=== PATIENT | female | born 1940 | race Caucasian/White ===

== ENCOUNTER → 2016-06-18 | Outpatient (CLI) | payer OTHER, BC ==
[~2016-06-18] MED LIST: BSP15 PO; ERGO500037 PO; HYDR25CA PO; LISI-461 PO; MEMA1CAP7 PO; PARO1TAB29 PO; RISP0.258 PO; SOTA120T PO; SRQ25 PO
[2016-06-18 12:14] LABS: HEMATOCRIT 36.8 % (37-47); MEAN CELL VOLUME 88.2 fL (80-100); MEAN CORPUSCULAR HGB CONC 32.9 g/dl (32-36); MEAN PLATELET VOLUME 10.8 fL (7.4-10.4); PLATELET COUNT 176 K/uL (130-400); RED BLOOD COUNT 4.17 M/uL (4.2-5.4); WHITE BLOOD COUNT 6.19 K/uL (4.8-10.8)
[2016-06-18 12:45] LABS: BLOOD UREA NITROGEN 17 mg/dl (7-18); BUN/CREATININE RATIO 21.8 (10-20); CALCIUM 8.6 mg/dl (8.5-10.1); CARBON DIOXIDE 27 mmol/L (21-32); CHLORIDE 106 mmol/L (98-107); CREATININE 0.76 mg/dl (0.60-1.20); GLUCOSE 82 mg/dl (70-99); POTASSIUM 4.1 mmol/L (3.5-5.1); SODIUM 141 mmol/L (136-145)
== END | disposition home or self-care (01) ==
LOC: C.LABWYN 12:28
PROVIDERS: ATTEND Internal Medicine
DX: I48.91 Unspecified atrial fibrillation (principal); I10 Essential (primary) hypertension

== ENCOUNTER → 2017-05-06 | Outpatient (CLI) | payer OTHER, BC ==
[2017-05-06 14:19] LABS: BLOOD UREA NITROGEN 23 mg/dl (7-18); CREATININE 0.89 mg/dl (0.60-1.20)
== END | disposition home or self-care (01) ==
LOC: C.LABWYN 10:45
PROVIDERS: ATTEND Physician Assistant
DX: H90.42 Sensorineural hearing loss, unilateral, left ear, with unrestricted hearing on the contralateral side (principal)

== ENCOUNTER → 2017-05-09 | Outpatient (CLI) | payer OTHER, BC ==
[~2017-05-09] MED LIST changes: +GADAVIST IV PRN
--- NOTE | 2017-05-09 15:56 | DIAGNOSTIC IMAGING REPORT ---
BRAIN COMBO FOR IAC CLINICAL HISTORY: Left greater than right asymmetric sensorineural hearing loss. COMPARISON STUDY: Head CT May 27, 2015. TECHNIQUE: Utilizing a 1.5 Angie magnet and dedicated coil, multiplanar, multiecho imaging of the brain was performed pre and postcontrast administration with thin cut imaging through the internal auditory canals. Injection of 8.5 cc of Gadavist IV was uneventful. FINDINGS: There are no foci of restricted diffusion. No acute intracranial hemorrhage, midline shift or mass effect is present. There is moderate atrophy. This accounts for mild ventricular dilatation. The basilar cisterns are patent. There are no extra-axial collections. No intracranial mass or pathologic enhancement is identified with specific attention to the internal auditory canals. There is no mastoid effusion. No cerebellopontine angle mass is present. Pontine T2 hyperintensity suggest small vessel disease. Additional white matter T2 hyperintense foci reflect moderate small vessel disease. Calvarial signal is maintained. There are postoperative findings within the sinuses including bilateral medial antrostomies and partial ethmoidectomies. There is near complete opacification of the right sphenoid sinus as well as the right frontal and right ethmoid sinuses. There is moderate mucosal thickening of the bilateral maxillary sinuses. Mild progression is noted since exam of May 27, 2015. IMPRESSION: 1. No acute intracranial findings. 2. No abnormalities within the internal auditory canals. 3. Moderate atrophy and moderate small vessel disease. 4. Extensive sinus mucosal thickening/opacification, as described above. Mild progression since exam of May 27, 2015. The appearance favors chronic sinusitis. Electronically signed by: Reece Millan M.D. 05/09/2017 3:54 PM Dictated Date/Time: 05/09/2017 3:29 PM
== END | disposition home or self-care (01) ==
LOC: C.MRI 14:02
PROVIDERS: ATTEND Physician Assistant
DX: H90.42 Sensorineural hearing loss, unilateral, left ear, with unrestricted hearing on the contralateral side (principal); G31.9 Degenerative disease of nervous system, unspecified; J34.89 Other specified disorders of nose and nasal sinuses

== ENCOUNTER → 2017-07-28 | Outpatient (CLI) | payer OTHER, BC ==
[~2017-07-28] MED LIST changes: -GADAVIST IV PRN
== END | disposition home or self-care (01) ==
LOC: C.LABSPEC 10:54
PROVIDERS: ATTEND Nurse Practitioner Adult Health
DX: R35.0 Frequency of micturition (principal)

== ENCOUNTER → 2017-08-05 | Outpatient (CLI) | payer OTHER, BC ==
--- NOTE | 2017-08-06 13:59 | CODING QUERY NO DIAGNOSIS ---
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 Please assist us with providing a diagnosis/symptom for the test(s) below: A diagnosis/symptom was not documented on your Order. A valid diagnosis/symptom is required to bill all insurances. Please remember that we are unable to code a diagnosis of rule out, probable, possible, questionable, or suspected. Tests that require a diagnosis: DOS: 08/05/17 * UA CATH DIAGNOSIS: * URINE CULTURE CATH DIAGNOSIS: Provider Signature: Date: Thank you Malu Piña Health Information Management Once completed, please kindly fax back to [phone] For questions please call [phone]
== END | disposition home or self-care (01) ==
LOC: C.LABWYN 12:31
PROVIDERS: ATTEND Internal Medicine
DX: N39.0 Urinary tract infection, site not specified (principal)

== ENCOUNTER 2018-12-29 08:57 | Inpatient (IN) ==
[2018-12-29] MEDS ORDERED: SOTALOL HCL 80 MG TAB PO ONE (09:21)
[2018-12-29] MEDS ORDERED: ALBUT/IPRATROP 3MG/0.5MG NEB 3 ML VIAL NEB STA (09:21)
[2018-12-29 09:29] LABS: Basophils # (auto) 0.01 K/uL (0-0.2); Basophils % (auto) 0.1 %; Hematocrit (blood only) 42.6 % (37-47); Hemoglobin 14.3 g/dL (12.0-16.0); Immature Granulocytes # (auto) 0.06 K/uL (0.00-0.02); Immature Granulocytes % (auto) 0.4 %; Lymphocytes # (auto) 1.45 K/uL (1.2-3.4); Lymphocytes % (auto) 8.8 %; Mean Corpuscular Hemoglobin 28.1 pg (25-34); Mean Corpuscular Hgb Conc 33.6 g/dL (32-36); Mean Corpuscular Volume 83.7 fL (80-100); Mean Platelet Volume 10.4 fL (7.4-10.4); Monocytes # (auto) 1.65 K/uL (0.11-0.59); Monocytes % (auto) 10.1 %; Neutrophils # (auto) 13.23 K/uL (1.4-6.5); Neutrophils % (auto) 80.6 %; Platelet Count 259 K/uL (130-400); RDW Coefficient of Variation 15.1 % (11.5-14.5); RDW Standard Deviation 46.2 fL (36.4-46.3); Red Blood Count 5.09 M/uL (4.2-5.4)
--- NOTE | 2018-12-29 09:33 | XRay Report ---
XR chest 1V portable CLINICAL HISTORY: Dyspnea COMPARISON STUDY: 12/27/2018 FINDINGS: Mild cardiomegaly. Mild prominence of pulmonary vasculature. Diaphragms are smooth. No foca l infiltrate. IMPRESSION: Early congestive heart failure The above report was generated using voice recognition software. It may contain grammatical, syntax or spelling errors. Electronically signed by: Karthik Gomez M.D. 12/29/2018 9:32 AM
[2018-12-29 09:42] LABS: Appearance Urine Clear (Clear); Bacteria Urine Automated Negative (Negative); Bilirubin Urine 1+ (Negative); Blood Urine 1+ (Negative); Color Urine Dark Yellow; Epithelial Cell Urine Auto 20-30 /lpf (0-5); Glucose Urine UA Negative (Negative); Ketones Urine 1+ (Negative); Leukocyte Esterase Urine Negative (Negative); Nitrite Urine Negative (Negative); Protein Urine 3+ (Negative); Specific Gravity Urine 1.028 (1.000-1.030); Urobilinogen Urine Negative (Negative); pH Urine 5.5 (4.5-7.5)
[2018-12-29 09:44] LABS: Ictotest Urine Positive (Negative)
--- NOTE | 2018-12-29 09:45 | Emergency Department Note ---
Entered by Marisol Caldwell acting as a scribe for Dima Jackson DO History of Present Illness General Chief complaint: Cardiac Assessment Time Seen by Provider: 12/29/18 09:14 Source: patient, family, EMS, RN notes reviewed and old records reviewed Mode of arrival: EMS Limitations: no limitations (The patient answers questions appropriately but has some degree of confusion according to her family members.) History of Present Illness Onset (ago): day(s) 3 Location: chest Pain Consistency: + other (worsening) Quality: + other (shortness of breath) Exacerbated By: + movement (exertion) Associated symptoms: + denies other symptoms (back pain, increased urinary frequency), + confusion (intermittent), + cough, + shortness of breath and + other (orthopnea, leg swelling); no chest pain, no headaches and no nausea/vomiting The patient is a 78-year-old female who presented to the emergency department for an evaluation of 3 days of shortness of breath. The patient was seen in our facility over the weekend twice but each time was sent home with a diagnosis of bronchitis. The patient continues to worsen. She has not been seen by her primary care physician. The family is very concerned because the patient co ntinues to worsen and they do not feel that her diagnosis of bronchitis is appropriate or accurate. There is significant concern about the patient's condition because she continues to worsen at her personal shelter. The patient answers questions slowly but appears to be oriented at this time. The patient states that she is been having difficulty breathing. She states difficulty breathing is worsened with any exertion. She has a nonproductive cough. Her cough sounds very "wet" according to her family members. According to the family members the resting oxygen saturation was 84% prior to arrival. The patient's symptoms are very significant and worsen with any exertion or movement. She does have some orthopnea. The family has noted some increased leg swelling. She denies having any chest pain or headache. She has had no nausea or vomiting. She denies having any back pain or decreased urination but continues to complain about feeling like she has to urinate but prior to my e valuation the patient had a Rahman catheter placed by nursing. She states her symptoms are very severe. Her family members are very concerned because she seems to be confused at times. She does not normally wear oxygen but it is requiring nasal cannula oxygen at this time and is maintaining an appropriate saturation with nasal cannula oxygen. The patient did not take her a.m. medications at this time. She was noted to have rapid atrial fibrillation by the prehospital personnel. Home Medications Home Medications Medication Instructions Recorded Confirmed Type buspirone 15 mg PO TID 01/18/18 12/29/18 History docusate sodium 100 mg PO BID 01/18/18 12/29/18 History donepezil 10 mg PO DAILY 01/18/18 12/29/18 History ergocalciferol (vitamin D2) 50,000 unit PO LEVY 01/18/18 12/29/18 History [Vitamin D2] hydroxyzine HCl 25 mg PO Q8 PRN 01/18/18 12/29/18 History lisinopril [Zestril] 10 mg PO QAM 01/18/18 12/29/18 History loratadine [Loradamed] 10 mg PO QAM 01/18/18 12/29/18 History lorazepam 0.5 mg PO TID 01/18/18 12/29/18 History naproxen sodium [Aleve] 220 mg PO Q12 PRN 01/18/18 12/29/18 History sotalol [Sorine] 120 mg PO BID 01/18/18 12/29/18 History venlafaxine [Effexor XR] 150 mg PO QAM 01/18/18 12/29/18 History memantine [Namenda XR] 28 mg PO QAM 07/24/18 12/29/18 History alum-mag hydroxide-simeth 30 ml PO Q6H PRN 12/26/18 12/29/18 History [Antacid-Simethicone] aspirin 81 mg PO DAILY 12/26/18 12/29/18 History dextromethorphan-guaifenesin 5 ml PO Q4H PRN 12/26/18 12/29/18 History [Tussin DM] lisinopril [Zestril] 2.5 mg PO DAILY 12/26/18 12/29/18 History mineral oil-hydrophil petrolat 1 applic TOPICAL TID PRN 12/26/18 12/29/18 History [Aquaphor] phenylephrine HCl [Sudafed PE] 10 mg PO Q4H PRN 12/26/18 12/29/18 History sennosides-docusate sodium [Senna 1 tab PO DAILY 12/26/18 12/29/18 History Plus] venlafaxine [Effexor XR] 75 mg PO QAM 12/26/18 12/29/18 History albuterol sulfate 1.25 mg INH Q6H PRN 3 Days #60 ml 12/27/18 12/29/18 Rx amoxicillin-pot clavulanate 1 tab PO BID 12/29/18 12/29/18 History [Augmentin] benzonatate 100 mg PO TID PRN 12/29/18 12/29/18 History Allergies Allergy/AdvReac Type Severity Reaction Status Date / Time Sulfa (Sulfonamide Allergy Mild "SULFA Verified 12/29/18 09:44 Antibiotics) DRUGS": UNKNOWN acetaminophen Allergy Unknown ? Verified 12/29/18 09:44 oxycodone Allergy Unknown ? 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 and A total of 10 systems reviewed and were otherwise negative Additional history was obtained from the patient's family members. Physical Exam Vital Signs Vital Signs - 24 hr 12/29/18 09:17 12/29/18 09:27 12/29/18 09:38 Temperature Source Oral Sepsis Recent Fever Within 48 Hours No Sepsis New/Unexplained Change in Mental Status Yes Sepsis Action Taken by Nursing No Action Required Pulse Rate 156 H Pulse Rate [Apical] 140 H Pulse Rate from SpO2 Sensor Respiratory Rate 32 H 20 Respiratory Effort / Characteristics Spontaneous Non-Labored Spontaneous Blood Pressure 229/186 H Blood Pressure [Right Arm] Blood Pressure Mean 200 Blood Pressure Mean [Right Arm] Blood Pressure Position Lying Blood Pressure Position [Right Arm] Pulse Oximetry 96 96 Oxygen Delivery Method Nasal Cannula Nasal Cannula Nasal Cannula Oxygen Flow Rate 3 3 3 12/29/18 10:19 12/29/18 10:48 12/29/18 11:01 Temperature Source Sepsis Recent Fever Within 48 Hours Sepsis New/Unexplained Change in Mental Status Sepsis Action Taken by Nursing Pulse Rate 133 H Pulse Rate [Apical] 162 H 137 H Pulse Rate from SpO2 Sensor 148 H Respiratory Rate 32 H 28 H 20 Respiratory Effort / Characteristics Spontaneous Blood Pressure 200/128 H Blood Pressure [Right Arm] 198/170 H 152/128 H Blood Pressure Mean 152 Blood Pressure Mean [Right Arm] 179 136 Blood Pressure Position Blood Pressure Position [Right Arm] Lying Pulse Oximetry 96 97 96 Oxygen Delivery Method Nasal Cannula Nasal Cannula Room Air Oxygen Flow Rate 3 12/29/18 12:01 12/29/18 12:31 12/29/18 13:01 Temperature Source Sepsis Recent Fever Within 48 Hours Sepsis New/Unexplained Change in Mental Status Sepsis Action Taken by Nursing Pulse Rate 134 H 133 H 134 H Pulse Rate [Apical] Pulse Rate from SpO2 Sensor 137 H 129 H 144 H Respiratory Rate 19 24 Respiratory Effort / Characteristics Blood Pressure 202/144 H 180/135 H 219/122 H Blood Pressure [Right Arm] Blood Pressure Mean 163 150 154 Blood Pressure Mean [Right Arm] Blood Pressure Position Blood Pressure Position [Right Arm] Pulse Oximetry 97 97 92 Oxygen Delivery Method Room Air Nasal Cannula Room Air Oxygen Flow Rate 2 12/29/18 13:08 Temperature Source Sepsis Recent Fever Within 48 Hours Sepsis New/Unexplained Change in Mental Status Sepsis Action Taken by Nursing Pulse Rate 129 H Pulse Rate [Apical] Pulse Rate from SpO2 Sensor 147 H Respiratory Rate 23 Respiratory Effort / Characteristics Blood Pressure 210/147 H Blood Pressure [Right Arm] Blood Pressure Mean 168 Blood Pressure Mean [Right Arm] Blood Pressure Position Blood Pressure Position [Right Arm] Pulse Oximetry Oxygen Delivery Method Oxygen Flow Rate GENERAL: The patient is awake but slow to respond to questioning. She appears to have significant difficulty breathing. EYES: The conjunctivae are clear. The pupils are round and reactive. EARS, NOSE, MOUTH AND THROAT: The nose is without any evidence of any deformity. Mucous membranes are moist tongue is midline NECK: The neck is nontender and supple. Positive HJR noted. RESPIRATORY: Diminished breath sounds are noted throughout. There are rales at both bases with expiratory wheezes noted throughout. CARDIOVASCULAR: Tachycardic rate with a regular rhythm was noted. No definite murmur was noted but was difficult to auscultate. GASTROINTESTINAL: The abdomen is soft. Bowel sounds are present in all quadrants. Abdomen is nontender MUSCULOSKELETAL/EXTREMITIES: There is no evidence of gross deformity full range of motion is noted in the hips and shoulders SKIN: There is no obvious evidence of any rash. There is pedal edema noted bilaterally. Skin is cold. NEUROLOGIC: Patient is oriented to person place and situation. Strength was symmetric but diminished. Course 0923: Past medical records reviewed. The patient was evaluated in room C4. A complete history and physical exam was performed. 1038: I reevaluated the patient and she was doing okay. 1209: I reevaluated the patient and updated her on her test results. I discussed the treatment plan with her. She verbally agrees and understands. 1226: I discussed the patient's case with Dr. Wong [facility] Hospitalist. He will evaluate the patient for further management. 1432: Nursing staff informed me that the patient is struggling to breathe and her lips are turning blue. We called for Bi-PAP at this time. Administered Medications Heparin Sodium/Dextrose (Heparin Sodium/Dextrose) 25,000 units in 500 mls @ 17 mls/hr IV .Q24H [facility]; Protocol Stop: 01/28/19 13:29 Last Admin: 12/29/18 16:52 Dose: Not Given Documented by: [id number] Ioversol (Optiray 320 125ml) 120 ml IV ONCE PRN PRN Reason: Interaction Checking Stop: 01/02/19 11:30 Last Admin: 12/29/18 11:32 Dose: 120 ml Documented by: [id number] Discontinued Medications Albuterol (Duoneb) 3 ml NEB NOW STA Stop: 12/29/18 09:22 Last Admin: 12/29/18 09:36 Dose: 3 ml Documented by: [id number] Heparin Sodium/Dextrose (Heparin Sodium/Dextrose) Confirm Administered Dose 25,000 units IV .STK-MED ONE Stop: 12/29/18 14:01 Last Admin: 12/29/18 14:10 Dose: 17 ml Documented by: [id number] Cosigned by: [id number] Hydralazine HCl (Hydralazine Hcl) 5 mg IV NOW ONE Stop: 12/29/18 13:22 Last Admin: 12/29/18 14:09 Dose: 5 mg Documented by: [id number] Piperacillin Sod/Tazobactam Sod (Zosyn) 4.5 gm in 120 mls @ 240 mls/hr IV NOW ONE Stop: 12/29/18 12:35 Last Infusion: 12/29/18 13:05 Dose: 0 mls/hr Documented by: [id number] Admin: 12/29/18 12:17 Dose: 240 mls/hr Documented by: [id number] Sodium Chloride (Nss) 500 mls @ 999 mls/hr IV .Q31M ONE Stop: 12/29/18 12:37 Last Infusion: 12/29/18 13:05 Dose: 0 mls/hr Documented by: [id number] Admin: 12/29/18 12:17 Dose: 999 mls/hr Documented by: [id number] Vancomycin HCl 2,000 mg/ (Sodium Chloride) 540 mls @ 200 mls/hr IV NOW ONE Stop: 12/29/18 16:26 Last Infusion: 12/29/18 14:30 Dose: 0 mls/hr Documented by: [id number] Admin: 12/29/18 14:10 Dose: 200 mls/hr Documented by: [id number] Labetalol HCl (Normodyne) 20 mg IV NOW STA Stop: 12/29/18 14:53 Last Admin: 12/29/18 14:56 Dose: 10 mg Documented by: [id number] Cosigned by: [id number] Labetalol HCl (Normodyne) 10 mg IV NOW STA Stop: 12/29/18 15:38 Last Admin: 12/29/18 15:38 Dose: 10 mg Documented by: [id number] Cosigned by: [id number] Lisinopril (Zestril) 10 mg PO NOW ONE Stop: 12/29/18 11:09 Last Admin: 12/29/18 11:55 Dose: 10 mg Documented by: [id number] Sotalol HCl (Betapace) 120 mg PO NOW ONE Stop: 12/29/18 09:22 Last Admin: 12/29/18 09:59 Dose: 120 mg Documented by: [id number] Medical Decision Making Differential Diagnosis Differential diagnoses includes but is not limited to pneumonia, bronchitis, COPD/Asthma exacerbation, pneumothorax, pulmonary embolism, congestive heart failure, acute coronary syndrome Medical Records Attestation: I reviewed the patient's medical records. Home Medications Current Medication List: was personally reviewed by me Laboratory Data Attestation: I reviewed the patient's lab results. Result diagrams: 12/29/18 09:10 12/29/18 09:47 Lab Results 12/29/18 12/29/18 12/29/18 Range/Units 09:10 09:10 09:10 WBC 16.40 H (4.8-10.8) K/uL RBC 5.09 (4.2-5.4) M/uL Hgb 14.3 (12.0-16.0) g/dL Hct 42.6 (37-47) % MCV 83.7 (80-100) fL MCH 28.1 (25-34) pg MCHC 33.6 (32-36) g/dL RDW Std Deviation 46.2 (36.4-46.3) fL RDW Coeff of Cristina 15.1 H (11.5-14.5) % Plt Count 259 (130-400) K/uL MPV 10.4 (7.4-10.4) fL Immature Gran % (Auto) 0.4 % Neut % (Auto) 80.6 % Lymph % (Auto) 8.8 % [place] % (Auto) 10.1 % Eos % (Auto) 0.0 % Baso % (Auto) 0.1 % Immature Gran # (Auto) 0.06 H (0.00-0.02) K/uL Neut # (Auto) 13.23 H (1.4-6.5) K/uL Lymph # (Auto) 1.45 (1.2-3.4) K/uL [place] # (Auto) 1.65 H (0.11-0.59) K/uL Eos # (Auto) 0.00 (0-0.5) K/uL Baso # (Auto) 0.01 (0-0.2) K/uL PT Cancelled INR Cancelled APTT Cancelled PTT Ratio Cancelled VBG pH (7.36-7.41) VBG pCO2 (38-50) mmHg VBG pO2 mmHg VBG HCO3 mmol/L VBG O2 Saturation % VBG Base Excess mEq/L Barometric Pressure mm/Hg Sodium 132 L (136-145) mmol/L Potassium (3.5-5.1) mmol/L Chloride 99 (98-107) mmol/L Carbon Dioxide 21 (21-32) mmol/L Anion Gap 12.0 H (3-11) BUN 27 H (7-18) mg/dl Creatinine 0.80 (0.6-1.2) mg/dl Est Cr Clr Drug Dosing Not Reportable Est GFR ( Amer) 81.3 Est GFR (Non-Af Amer) 70.1 BUN/Creatinine Ratio 33.1 H (10-20) Glucose 123 H (70-99) mg/dl Lactate (0.4-2.0) mmol/L Calcium 9.6 (8.5-10.1) mg/dl Magnesium (1.8-2.4) mg/dl Total Bilirubin 1.3 H (0.2-1) mg/dl AST (15-37) U/L ALT 216 H (12-78) U/L Alkaline Phosphatase 120 H (45-117) U/L Troponin I < 0.015 (0-0.045) ng/ml NT-Pro-B Natriuret Pep 5865 H (0-1800) pg/ml Total Protein 7.8 (6.4-8.2) gm/dl Albumin 3.0 L (3.4-5.0) gm/dl Globulin 4.8 H (2.5-4.0) gm/dl Albumin/Globulin Ratio 0.6 L (0.9-2) Urine Color Urine Appearance (Clear) Urine pH (4.5-7.5) Ur Specific [place] (1.000-1.030) Urine Protein (Negative) Urine Glucose (UA) (Negative) Urine Ketones (Negative) Urine Blood (Negative) Urine Nitrite (Negative) Urine Bilirubin (Negative) Urine Urobilinogen (Negative) Ur Leukocyte Esterase (Negative) Urine WBC (Auto) (0-5) /hpf Urine RBC (Auto) (0-4) /hpf U Hyaline Cast (Auto) (0-5) /lpf U Epithel Cells (Auto) (0-5) /lpf Urine Bacteria (Auto) (Negative) Influenza Type A (PCR) (Neg) Influenza Type B (PCR) (Neg) 12/29/18 12/29/18 12/29/18 Range/Units 09:10 09:42 09:42 WBC (4.8-10.8) K/uL RBC (4.2-5.4) M/uL Hgb (12.0-16.0) g/dL Hct (37-47) % MCV (80-100) fL MCH (25-34) pg MCHC (32-36) g/dL RDW Std Deviation (36.4-46.3) fL RDW Coeff of Cristina (11.5-14.5) % Plt Count (130-400) K/uL MPV (7.4-10.4) fL Immature Gran % (Auto) % Neut % (Auto) % Lymph % (Auto) % [place] % (Auto) % Eos % (Auto) % Baso % (Auto) % Immature Gran # (Auto) (0.00-0.02) K/uL Neut # (Auto) (1.4-6.5) K/uL Lymph # (Auto) (1.2-3.4) K/uL [place] # (Auto) (0.11-0.59) K/uL Eos # (Auto) (0-0.5) K/uL Baso # (Auto) (0-0.2) K/uL PT INR APTT PTT Ratio VBG pH 7.35 L (7.36-7.41) VBG pCO2 46 (38-50) mmHg VBG pO2 33 mmHg VBG HCO3 25 mmol/L VBG O2 Saturation < 60.0 % VBG Base Excess -0.9 mEq/L Barometric Pressure 736.4 mm/Hg Sodium (136-145) mmol/L Potassium (3.5-5.1) mmol/L Chloride (98-107) mmol/L Carbon Dioxide (21-32) mmol/L Anion Gap (3-11) BUN (7-18) mg/dl Creatinine (0.6-1.2) mg/dl Est Cr Clr Drug Dosing Est GFR ( Amer) Est GFR (Non-Af Amer) BUN/Creatinine Ratio (10-20) Glucose (70-99) mg/dl Lactate 3.5 H* (0.4-2.0) mmol/L Calcium (8.5-10.1) mg/dl Magnesium (1.8-2.4) mg/dl Total Bilirubin (0.2-1) mg/dl AST (15-37) U/L ALT (12-78) U/L Alkaline Phosphatase (45-117) U/L Troponin I (0-0.045) ng/ml NT-Pro-B Natriuret Pep (0-1800) pg/ml Total Protein (6.4-8.2) gm/dl Albumin (3.4-5.0) gm/dl Globulin (2.5-4.0) gm/dl Albumin/Globulin Ratio (0.9-2) Urine Color Dark Yellow Urine Appearance Clear (Clear) Urine pH 5.5 (4.5-7.5) Ur Specific [place] 1.028 (1.000-1.030) Urine Protein 3+ H (Negative) Urine Glucose (UA) Negative (Negative) Urine Ketones 1+ H (Negative) Urine Blood 1+ H (Negative) Urine Nitrite Negative (Negative) Urine Bilirubin 1+ H (Negative) Urine Urobilinogen Negative (Negative) Ur Leukocyte Esterase Negative (Negative) Urine WBC (Auto) 1-5 (0-5) /hpf Urine RBC (Auto) 5-10 H (0-4) /hpf U Hyaline Cast (Auto) 5-10 H (0-5) /lpf U Epithel Cells (Auto) 20-30 H (0-5) /lpf Urine Bacteria (Auto) Negative (Negative) Influenza Type A (PCR) (Neg) Influenza Type B (PCR) (Neg) 12/29/18 12/29/18 12/29/18 Range/Units 09:47 10:15 10:20 WBC (4.8-10.8) K/uL RBC (4.2-5.4) M/uL Hgb (12.0-16.0) g/dL Hct (37-47) % MCV (80-100) fL MCH (25-34) pg MCHC (32-36) g/dL RDW Std Deviation (36.4-46.3) fL RDW Coeff of Cristina (11.5-14.5) % Plt Count (130-400) K/uL MPV (7.4-10.4) fL Immature Gran % (Auto) % Neut % (Auto) % Lymph % (Auto) % [place] % (Auto) % Eos % (Auto) % Baso % (Auto) % Immature Gran # (Auto) (0.00-0.02) K/uL Neut # (Auto) (1.4-6.5) K/uL Lymph # (Auto) (1.2-3.4) K/uL [place] # (Auto) (0.11-0.59) K/uL Eos # (Auto) (0-0.5) K/uL Baso # (Auto) (0-0.2) K/uL PT 12.5 H INR 1.2 H APTT 24.5 PTT Ratio 0.9 VBG pH (7.36-7.41) VBG pCO2 (38-50) mmHg VBG pO2 mmHg VBG HCO3 mmol/L VBG O2 Saturation % VBG Base Excess mEq/L Barometric Pressure mm/Hg Sodium (136-145) mmol/L Potassium 4.2 (3.5-5.1) mmol/L Chloride (98-107) mmol/L Carbon Dioxide (21-32) mmol/L Anion Gap (3-11) BUN (7-18) mg/dl Creatinine (0.6-1.2) mg/dl Est Cr Clr Drug Dosing Est GFR ( Amer) Est GFR (Non-Af Amer) BUN/Creatinine Ratio (10-20) Glucose (70-99) mg/dl Lactate (0.4-2.0) mmol/L Calcium (8.5-10.1) mg/dl Magnesium 2.0 (1.8-2.4) mg/dl Total Bilirubin (0.2-1) mg/dl AST 340 H (15-37) U/L ALT (12-78) U/L Alkaline Phosphatase (45-117) U/L Troponin I (0-0.045) ng/ml NT-Pro-B Natriuret Pep (0-1800) pg/ml Total Protein (6.4-8.2) gm/dl Albumin (3.4-5.0) gm/dl Globulin (2.5-4.0) gm/dl Albumin/Globulin Ratio (0.9-2) Urine Color Urine Appearance (Clear) Urine pH (4.5-7.5) Ur Specific [place] (1.000-1.030) Urine Protein (Negative) Urine Glucose (UA) (Negative) Urine Ketones (Negative) Urine Blood (Negative) Urine Nitrite (Negative) Urine Bilirubin (Negative) Urine Urobilinogen (Negative) Ur Leukocyte Esterase (Negative) Urine WBC (Auto) (0-5) /hpf Urine RBC (Auto) (0-4) /hpf U Hyaline Cast (Auto) (0-5) /lpf U Epithel Cells (Auto) (0-5) /lpf Urine Bacteria (Auto) (Negative) Influenza Type A (PCR) Neg for Influ A (Neg) Influenza Type B (PCR) Neg for Influ B (Neg) Imaging Data Radiologist's Impression: Radiology results as stated below per my review and the radiologist's interpretation: XR chest 1V portable CLINICAL HISTORY: Dyspnea COMPARISON STUDY: 12/27/2018 FINDINGS: Mild cardiomegaly. Mild prominence of pulmonary vasculature. Diaphragms are smooth. No focal infiltrate. IMPRESSION: Early congestive heart failure The above report was generated using voice recognition software. It may contain grammatical, syntax or spelling errors. Electronically signed by: Karthik Gomez M.D. 12/29/2018 9:[address] angio chest PE protocol CLINICAL HISTORY: 78 years-old Female presenting with abnormal LFTs, dyspnea, clinical concern for pulmonary embolus. TECHNIQUE: Multidetector CT angiography of the chest was performed after administration of intravenous contrast. 3-D volumetric and/or maximum intensity projection (MIP) images were subsequently reconstructed for review. IV contrast: 120 mL of Optiray 320. One or more dose lowering techniques were used consistent with the principles of ALARA (as low as reasonably achievable), including automatic exposure control, mA or kV adjustment to individual patient size, and/or use of iterative reconstruction. COMPARISON: Chest x-ray performed earlier today. CT DOSE (mGy.cm): The estimated cumulative dose is 1181.29 mGy.cm. FINDINGS: Car Manager topogram: Unremarkable. Pulmonary vasculature: The study is suboptimal for the assessment of the pulmonary vascular tree secondary to respiratory motion artifact. Allowing for limited image quality, no central filling defect to suggest pulmonary embolus. Main pulmonary artery is not enlarged. No flattening of the interventricular septum. No intracardiac fi lling defect. Reflux of contrast into the IVC and hepatic veins. This likely indicates elevated right heart pressure. Remaining chest: Soft tissues: Grossly normal thyroid. Body wall edema. Scattered subcentimeter mediastinal lymph nodes, nonspecific. The esophagus is mildly distended with gas and fluid. Small sliding type hiatal hernia noted. Atherosclerosis of the aorta. Multichamber enlargement of the heart. Coronary artery calcification. No pericardial or pleural effusion. Upper abdomen normal. Lungs and airways: No pneumothorax. Mild diffuse bronchial wall thickening. Pulmonary arteries are not significantly enlarged relative to adjacent bronchi. No interlobular septal thickening. Significant focal radiolucency consistent with air trapping in the anterior and apical portions of the left upper lobe. Multifocal predominantly peribronchovascular groundglass and solid consolidation in the right lung with more extensive confluent round glass and solid consolidation in the left lower lobe. Musculoskeletal: Degenerative changes of the spine. Exaggerated thoracic kyphosis without a focal compression deformity. Suspected underlying osteopenia. IMPRESSION: 1. Allowing for suboptimal image quality, no evidence of pulmonary embolus. 2. Extensive multifocal infiltrates, which are confluent in the left lower lobe and patchy peribronchovascular in the left lung. This is consistent with multifocal pneumonia. 3. Air trapping in the left upper lobe is likely on a chronic basis and may relate to bronchial atresia among other etiologies. 4. Cardiomegaly. 5. Elevated right heart pressure suggested by reflux of contrast into the hepatic veins. The pulmonary infiltrates are not suggestive of edema. Electronically signed by: Markus Farias M.D. 12/29/2018 11:53 AM ADDENDUM Extensive multifocal infiltrates should be followed to resolution to ensure the absence of underlying neoplasm. Electronically signed by: Markus Farias M.D. 12/29/2018 11:[address] abd pelvis IV con only CT DOSE: HISTORY: Pain. Nausea. abnl LFTs TECHNIQUE: Multiaxial CT images of the abdomen and pelvis were performed following the use of intravenous contrast. A dose lowering technique was utilized adhering to the principles of ALARA. COMPARISON STUDY: None. FINDINGS: Lung bases demonstrate bilateral diffuse parenchymal infiltrative change. Somewhat nodular-type characteristics are identified at the right base. Reference is made to a CT examination of the same date. Mild hepatic inhomogeneity. Findings consistent with hepatic cirrhosis. Small hiatal hernia. Spleen is unremarkable. Findings consistent with edematous change of the gallbladder wall versus moderate pericholecystic edematous change. No evidence for biliary ductal dilatation. Mild cortical scarring of the kidneys with no evidence for hydronephrosis. Nonobstructive bowel pattern. Uterus is anteflexed. Prior right hip arthroplasty. Old healed fractures of the pubic rings. Trace pelvic ascites. Nonobstructive bowel pattern. IMPRESSION: 1. Bilateral parenchymal infiltrative change with a somewhat nodular type appea suzanne involving the right base. 2. Hepatic cirrhosis with findings of fatty infiltration of the liver. 3. Edematous gallbladder wall versus pericholecystic edema raising the possibility of cholecystitis. Right upper quadrant ultrasound is suggested as follow-up. 4. Trace pelvic ascites. 5. Mild body wall anasarca. The above report was generated using voice recognition software. It may contain grammatical, syntax or spelling errors. Electronically signed by: Karthik Gomez M.D. 12/29/2018 11:56 AM ECG Data Attestation: I personally reviewed and interpreted this ECG as follows: Indication: SOB/dyspnea Rate (beats per minute): 150 Rhythm: atrial fibrillation Findings: + other (low voltage noted) and + ST depression; no PVC Comparison ECG Date: from (12/27/2018) Change: the following changes noted (increased rate, but no other changes) Blood Pressure Blood Pressure Findings: Elevated blood pressure Blood Pressure Disposition: further management by hospitalist IVONNE Azevedo The patient is a 78-year-old female who presented to the emergency department for an evaluation of breathing difficulty. The patient was seen in our facility twice over the weekend and was diagnosed with bronchitis. She did not have any definite source for her breathing difficulty but she presents to the emergency d epartment today with significant worsening of her breathing. The patient's history and physical exam initially appeared to be consistent with volume overload. She was also in rapid atrial fibrillation. Further work-up suggested the patient may have an infectious source. Her chest x-ray was not conclusive so CT the chest abdomen pelvis were obtained to further evaluate the patient's symptoms. She was found to have signs of parenchymal infiltrates on CT the chest but also may have signs of cholecystitis on CT abdomen and pelvis. Reevaluation did show the patient had elevation in her LFTs but no significant guarding in the right upper quadrant. This may need further work-up. I discussed patient's laboratory and radiographic studies with her. She was given a volume bolus in the emergency department. She was also given her outpatient blood pressure medications and was further treated with blood pressure and rate control medications in the emergency department. She continued to have rapid atrial fibrillation with elevation in her blood pressure. I discussed the patient's laboratory and radiographic studies with her and her family members. Because of her ongoing symptoms she was also started on IV antibiotics and I discussed her case with the on-call [facility] hospitalist. I was called back to reevaluate the patient in her room because of severe shortness of breath. She continues to have rapid atrial fibrillation as well as hypertension with significantly elevated blood pressure. She was treated with IV labetalol. She was placed on BiPAP. Subsequent reevaluation showed the patient was resting much more comfortably. She was able to be sent to the ICU. The admitting team was contacted by the nursing staff about the patient's change in her condition. The patient's family members were present during this episode of significant hypertension and difficulty breathing. Certainly the patient's condition is very complicated. She will require further work-up for definite determination of her because of shortness of breath but this does not appear to be consistent with venous thrombi embolic disease at this time. Impression & Plan Atrial fibrillation with RVR, Pneumonia, Abnormal LFTs, Hypoxia, HTN (hypertension), Shortness of breath Critical Care Time Critical Care Time: Yes Total Critical Care Time: 60 I have personally spent 60 minutes of critical care time in the direct management of this patient. This includes bedside care, interpretation of diagnostic studies, and testing, discussion with consultants, patient, and family members, and other required patient management activities. This 60 minutes is in excess of all separately billable procedures. Discharge Plan Visit Data *Final* Discharge Date/Time: 12/29/18 15:21 Chief Complaint: Cardiac Assessment ED Provider: Dima Jackson Discharge Problem: Atrial fibrillation with RVR, Pneumonia, Abnormal LFTs, Hypoxia, HTN (hypertension), Shortness of breath Patient Disposition: Admitted As Inpatient Discharge Instructions Interventions: ED Discharge Assessment Last Done: 12/29/18 15:21 Discharge Problem: Pneumonia Qualifiers: Pneumonia type: due to unspecified organism Laterality: unspecified laterality Lung location: unspecified part of lung Qualified Code(s): J18.9 - Pneumonia, unspecified organism HTN (hypertension) Qualifiers: Hypertension type: unspecified Qualified Code(s): I10 - Essential (primary) hypertension The scribe's documentation has been prepared under my direction and personally reviewed by me in its entirety. I confirm that the note above accurately reflects all work, treatment, procedures, and medical decision making performed by me.
[2018-12-29 09:49] LABS: Alanine Aminotransferase 216 U/L (12-78); Albumin Globulin Ratio 0.6 (0.9-2); Alkaline Phosphatase 120 U/L (45-117); BUN Creatinine Ratio 33.1 (10-20); Bilirubin,Total 1.3 mg/dl (0.2-1); Blood Urea Nitrogen 27 mg/dl (7-18); Calcium 9.6 mg/dl (8.5-10.1); Carbon Dioxide 21 mmol/L (21-32); Chloride 99 mmol/L (98-107); Est GFR (African American) 81.3; Est GFR (Non-African American) 70.1; Globulin 4.8 gm/dl (2.5-4.0); Glucose 123 mg/dl (70-99); NT Pro B Type Natriuretic Pept 5865 pg/ml (0-1800); Sodium 132 mmol/L (136-145); Total Protein 7.8 gm/dl (6.4-8.2); Troponin I < 0.015 ng/ml (0-0.045)
[2018-12-29 09:58] LABS: Base Excess VBG -0.9 mEq/L; HCO3 VBG 25 mmol/L; Oxygen Saturation VBG < 60.0 %; PCO2 VBG 46 mmHg (38-50); PO2 VBG 33 mmHg; pH VBG 7.35 (7.36-7.41)
[2018-12-29 10:12] LABS: Potassium 4.2 mmol/L (3.5-5.1)
[2018-12-29 10:46] LABS: INR 1.2 (0.9-1.1); Partial Thromboplastin Ratio 0.9; Partial Thromboplastin Time 24.5 Seconds (21.0-31.0); Prothrombin Time 12.5 Seconds (9.0-12.0)
[2018-12-29 11:02] LABS: Influenza A virus by PCR Neg for Influ A (Neg); Influenza B virus by PCR Neg for Influ B (Neg)
[2018-12-29] MEDS ORDERED: LISINOPRIL 5 MG TAB PO ONE (11:08)
[2018-12-29] MEDS ORDERED: OPTIRAY 320 125ml IV PRN (11:31)
--- NOTE | 2018-12-29 11:54 | CT Scan Report ---
CT angio chest PE protocol CLINICAL HISTORY: 78 years-old Female presenting with abnormal LFTs, dyspnea, clinical concern for pu lmonary embolus. TECHNIQUE: Multidetector CT angiography of the chest was performed after administration of intravenou s contrast. 3-D volumetric and/or maximum intensity projection (MIP) images were subsequently reconst ructed for review. IV contrast: 120 mL of Optiray 320. One or more dose lowering techniques were used consistent with the principles of ALARA (as low as reasonably achievable), including automatic expos ure control, mA or kV adjustment to individual patient size, and/or use of iterative reconstruction. COMPARISON: Chest x-ray performed earlier today. CT DOSE (mGy.cm): The estimated cumulative dose is 1181.29 mGy.cm. FINDINGS: Telecommunications Analyst topogram: Unremarkable. Pulmonary vasculature: The study is suboptimal for the assessment of the pulmonary vascular tree secondary to respiratory mo tion artifact. Allowing for limited image quality, no central filling defect to suggest pulmonary emb olus. Main pulmonary artery is not enlarged. No flattening of the interventricular septum. No intraca rdiac filling defect. Reflux of contrast into the IVC and hepatic veins. This likely indicates elevat ed right heart pressure. Remaining chest: Soft tissues: Grossly normal thyroid. Body wall edema. Scattered subcentimeter mediastinal lymph node s, nonspecific. The esophagus is mildly distended with gas and fluid. Small sliding type hiatal herni a noted. Atherosclerosis of the aorta. Multichamber enlargement of the heart. Coronary artery calcifi cation. No pericardial or pleural effusion. Upper abdomen normal. Lungs and airways: No pneumothorax. Mild diffuse bronchial wall thickening. Pulmonary arteries are no t significantly enlarged relative to adjacent bronchi. No interlobular septal thickening. Significant focal radiolucency consistent with air trapping in the anterior and apical portions of the left uppe r lobe. Multifocal predominantly peribronchovascular groundglass and solid consolidation in the right lung with more extensive confluent round glass and solid consolidation in the left lower lobe. Musculoskeletal: Degenerative changes of the spine. Exaggerated thoracic kyphosis without a focal com pression deformity. Suspected underlying osteopenia. IMPRESSION: 1. Allowing for suboptimal image quality, no evidence of pulmonary embolus. 2. Extensive multifocal infiltrates, which are confluent in the left lower lobe and patchy peribronc hovascular in the left lung. This is consistent with multifocal pneumonia. 3. Air trapping in the left upper lobe is likely on a chronic basis and may relate to bronchial atre augusto among other etiologies. 4. Cardiomegaly. 5. Elevated right heart pressure suggested by reflux of contrast into the hepatic veins. The pulmona ry infiltrates are not suggestive of edema. Electronically signed by: Markus Farias M.D. 12/29/2018 11:53 AM
--- NOTE | 2018-12-29 11:58 | CT Scan Report ---
CT abd pelvis IV con only CT DOSE: HISTORY: Pain. Nausea. abnl LFTs TECHNIQUE: Multiaxial CT images of the abdomen and pelvis were performed following the use of intrave nous contrast. A dose lowering technique was utilized adhering to the principles of ALARA. COMPARISON STUDY: None. FINDINGS: Lung bases demonstrate bilateral diffuse parenchymal infiltrative change. Somewhat nodular- type characteristics are identified at the right base. Reference is made to a CT examination of the s loren date. Mild hepatic inhomogeneity. Findings consistent with hepatic cirrhosis. Small hiatal hernia. Spleen i s unremarkable. Findings consistent with edematous change of the gallbladder wall versus moderate pericholecystic mimi matous change. No evidence for biliary ductal dilatation. Mild cortical scarring of the kidneys with no evidence for hydronephrosis. Nonobstructive bowel pattern. Uterus is anteflexed. Prior right hip arthroplasty. Old healed fracture s of the pubic rings. Trace pelvic ascites. Nonobstructive bowel pattern. IMPRESSION: 1. Bilateral parenchymal infiltrative change with a somewhat nodular type appearance involving the ri ght base. 2. Hepatic cirrhosis with findings of fatty infiltration of the liver. 3. Edematous gallbladder wall versus pericholecystic edema raising the possibility of cholecystitis. Right upper quadrant ultrasound is suggested as follow-up. 4. Trace pelvic ascites. 5. Mild body wall anasarca. The above report was generated using voice recognition software. It may contain grammatical, syntax or spelling errors. Electronically signed by: Karthik Gomez M.D. 12/29/2018 11:56 AM
[2018-12-29] MEDS ORDERED: PIPERACILL/TAZOBAC CONSULT ACTIVE PRN (12:06)
[2018-12-29] MEDS ORDERED: PIPERACILLIN/TAZOBACTAM 4.5 GM/120 ML BAG IV ONE (12:06)
[2018-12-29] MEDS ORDERED: SODIUM CHLORIDE 0.9% 500 ML IV ONE (12:07)
[2018-12-29] MEDS ORDERED: VANCOMYCIN CONSULT ACTIVE PRN (13:17)
[2018-12-29] MEDS ORDERED: HydrALAZINE HCL 20 MG/ML VIAL IV ONE (13:21)
[2018-12-29] MEDS ORDERED: VANCOMYCIN HCL 2,000 MG in SODIUM CHLORIDE 0.9% 500 ML IV ONE (13:45)
[2018-12-29] MEDS ORDERED: HEPARIN 25000 UNIT/500 ML D5W IV ONE (14:00)
[2018-12-29] MEDS ORDERED: Heparin IV Low Dose *NO* Bolus IV SCH (14:00)
--- NOTE | 2018-12-29 14:39 | History & Physical Report ---
Date of Service December 29, 2018 Assessment & Plan (1) Hypoxia: Patient presents with 4 days of shortness of breath. Found to be hypoxic with an SaO2 of 84%. Placed on supplemental oxygen. CT scan found to have multifocal pneumonia. Outpatient antibiotics prescribed were never started the. Patient be started on Zosyn and vancomycin to cover pneumonia as well as healthcare associated pneumonia Steroids will be started for bronchospasm Nebulizer treatments will also be ordered judiciously secondary to A. fib with RVR Check a procalcitonin for trending with a.m. labs Supplemental O2 to maintain an SaO2 of 90% or greater. Will begin pulmonary toilet to try and clear secretions CT scan suggests aspiration as there is fluid in the esophagus and distribution of infiltrates suggest aspiration Implement aspiration precautions Once patient is improved will request speech-language pathology to do swallow study/videofluoroscopy (2) Hypertensive urgency: Patient with hypertensive urgency with systolic blood pressure above 200 Received sotalol 120 mg in the ED Received lisinopril 10 mg p.o. in the ED Received hydralazine 5 mg IV in the ED Received labetalol 10 mg IV in the ED We will write for as needed meds Continue home meds as prescribed including sotalol and lisinopril Monitor on telemetry No headache or other focal complaints (3) Cholecystitis: CT imaging suggests wall thickening of the gallbladder Abnormal LFTs Once patient stabilized from a cardiac and pulmonary standpoint we will request ultrasound of the right upper quadrant Continue patient on Zosyn and vancomycin for pneumonia. This should cover cholecystitis No nausea or vomiting Monitor closely Check serial labs (4) Abnormal LFTs: Suspect cholecystitis Patient also has nonalcoholic fatty cirrhosis Check repeat LFTs in the morning Treat with antibiotics Follow expectantly (5) Atrial fibrillation with RVR: Patient with a history of atrial fibrillation and on outpatient sotalol 120 mg p.o. twice daily Will write for metoprolol tartrate 5 mg IV every 6 hours as needed blood pressure greater than 160 Follow heart rate Heparin drip low-dose protocol initiated in the emergency department Continue heparin drip until atrial fibrillation with RVR is controlled (6) DVT prophylaxis: Patient started on heparin drip for atrial fibrillation with RVR If heparin drip is discontinued, consider HESHAM hose/SCDs Patient with chronic edema of the left lower extremity No Homans sign or other indication of DVT in lower extremities Please refer to Dr. Beltran's addendum for further recommendations. History of Present Illness Primary Care Provider: GAVNI Dong Attending: Dr. Beltran There is a 78-year-old female that presents with shortness of breath times several days. She presented to the emergency department over the weekend and was found to be short of breath and imaging suggested bronchitis. She was discharged home with a prescription for amoxicillin. Apparently this prescription was never transmitted to the pharmacy and patient did not receive any antibiotics since her ER visit.Over the last 2 days the patient's cough has been worse and family describes as a wet cough that is nonproductive.She has some minimal rib pain with cough but otherwise no chest pain or tightness. She has no back pain or flank pain.The patient is typically not on supplemental O2 at home. She has no other pulmonary disease.The patient denies hemoptysis. The patient's past medical history includes atrial fibrillation with RVR, hypertension, abnormal LFTs, reactive airway disease, and depression. Since in the emergency department the patient had a rate Change from 150 bpm to about 119 bpm. She did receive 1 dose of sotalol as well as lisinopril.Patient does have a leukocytosis with a white count of 16.4. Also her lactic acid is elevated at 3.5.She has been having regular bowel movements but no diarrhea.She has no abdominal pain.She has no other acute complaints. Allergies Allergy/AdvReac Type Severity Reaction Status Date / Time Sulfa (Sulfonamide Allergy Mild "SULFA Verified 12/29/18 09:44 Antibiotics) DRUGS": UNKNOWN acetaminophen Allergy Unknown ? Verified 12/29/18 09:44 oxycodone Allergy Unknown ? Verified 12/29/18 09:44 Home Medications Home Medications Medication Instructions Recorded Confirmed Type buspirone 15 mg PO TID 01/18/18 12/29/18 History docusate sodium 100 mg PO BID 01/18/18 12/29/18 History donepezil 10 mg PO DAILY 01/18/18 12/29/18 History ergocalciferol (vitamin D2) 50,000 unit PO LEVY 01/18/18 12/29/18 History [Vitamin D2] hydroxyzine HCl 25 mg PO Q8 PRN 01/18/18 12/29/18 History lisinopril [Zestril] 10 mg PO QAM 01/18/18 12/29/18 History loratadine [Loradamed] 10 mg PO QAM 01/18/18 12/29/18 History lorazepam 0.5 mg PO TID 01/18/18 12/29/18 History naproxen sodium [Aleve] 220 mg PO Q12 PRN 01/18/18 12/29/18 History sotalol [Sorine] 120 mg PO BID 01/18/18 12/29/18 History venlafaxine [Effexor XR] 150 mg PO QAM 01/18/18 12/29/18 History memantine [Namenda XR] 28 mg PO QAM 07/24/18 12/29/18 History alum-mag hydroxide-simeth 30 ml PO Q6H PRN 12/26/18 12/29/18 History [Antacid-Simethicone] aspirin 81 mg PO DAILY 12/26/18 12/29/18 History dextromethorphan-guaifenesin 5 ml PO Q4H PRN 12/26/18 12/29/18 History [Tussin DM] lisinopril [Zestril] 2.5 mg PO DAILY 12/26/18 12/29/18 History mineral oil-hydrophil petrolat 1 applic TOPICAL TID PRN 12/26/18 12/29/18 History [Aquaphor] phenylephrine HCl [Sudafed PE] 10 mg PO Q4H PRN 12/26/18 12/29/18 History sennosides-docusate sodium [Senna 1 tab PO DAILY 12/26/18 12/29/18 History Plus] venlafaxine [Effexor XR] 75 mg PO QAM 12/26/18 12/29/18 History albuterol sulfate 1.25 mg INH Q6H PRN 3 Days #60 ml 12/27/18 12/29/18 Rx amoxicillin-pot clavulanate 1 tab PO BID 12/29/18 12/29/18 History [Augmentin] benzonatate 100 mg PO TID PRN 12/29/18 12/29/18 History Past Med/Surg History Medical History RAD (reactive airway disease) (Acute) Bronchitis (Acute) A-fib (Acute) Physical deconditioning (Acute) Atrial fibrillation (Chronic) Depression (Acute) Anxiety Dementia Surgical History No pertinent past surgical history Family History Other Family history non-contributory Social History Preferred Language: Brazilian Communication Ability: Effective Weight Loss Consultant Required: No marital status: Current Living Situation: Personal Care Facility Current Living Situation Comment: [facility] current occupational status: retired Feels Safe at Home: Yes Smoking Status: Never smoker Review of Systems Review of Systems: All systems reviewed & are unremarkable except as noted in HPI & below Physical Exam Physical Exam: GENERAL : No acute distress EYES: No icterus, gaze conjugate. Pupils equal and reactive to light NOSE: No evidence of epistaxis. Nasal cannula placed and secure MOUTH: No lesions or candidiasis. Mucosa moist. No dentures or bridgework. NECK: Supple. Transmitted bronchospasm into the neck LUNGS: Diffuse rhonchi. No paroxysmal chest wall movement. Diffuse wheezing HEART: Irregular, irregular, rate in the 120s ABDOMEN: Soft, NT, ND, BS Present. No rebound tenderness or guarding EXTREMITIES: Bilateral +1 pitting edema to bilateral lower extremities, left slightly worse than right; family and patient report that this is typical for this patient. No history of DVT. Pedal pulses intact and equal bilaterally. Feet are cool bilaterally. NEURO: A&OX3. No specific neurological deficits. Patient is hard of hearing. Results & Data Vital Signs (Past 12 Hours) Vital Signs Pulse Pulse Resp BP BP Pulse Ox 12/29/18 14:10 141 H 29 H 205/143 H 97 12/29/18 13:08 129 H 23 210/147 H 12/29/18 13:01 134 H 219/122 H 92 12/29/18 12:31 133 H 24 180/135 H 97 12/29/18 12:01 134 H 19 202/144 H 97 12/29/18 11:01 133 H 20 200/128 H 96 12/29/18 10:48 137 H 28 H 152/128 H 97 10/15/19 10:19 162 H 32 H 198/170 H 96 12/29/18 09:38 140 H 20 96 12/29/18 09:17 156 H 32 H 229/186 H 96 Laboratory Results 12/29/18 09:10 12/29/18 09:47 Diagnostic Findings ADDENDUM Extensive multifocal infiltrates should be followed to resolution to ensure the absence of underlying neoplasm. Electronically signed by: Markus Farias M.D. 12/29/2018 11:[address] angio chest PE protocol CLINICAL HISTORY: 78 years-old Female presenting with abnormal LFTs, dyspnea, clinical concern for pulmonary embolus. TECHNIQUE: Multidetector CT angiography of the chest was performed after administration of intravenous contrast. 3-D volumetric and/or maximum intensity projection (MIP) images were subsequently reconstructed for review. IV contrast: 120 mL of Optiray 320. One or more dose lowering techniques were used c onsistent with the principles of ALARA (as low as reasonably achievable), including automatic exposure control, mA or kV adjustment to individual patient size, and/or use of iterative reconstruction. COMPARISON: Chest x-ray performed earlier today. CT DOSE (mGy.cm): The estimated cumulative dose is 1181.29 mGy.cm. FINDINGS: Maintenance Worker House Trailer topogram: Unremarkable. Pulmonary vasculature: The study is suboptimal for the assessment of the pulmonary vascular tree secondary to respiratory motion artifact. Allowing for limited image quality, no central filling defect to suggest pulmonary embolus. Main pulmonary artery is not enlarged. No flattening of the interventricular septum. No intracardiac filling defect. Reflux of contrast into the IVC and hepatic veins. This likely indicates elevated right heart pressure. Remaining chest: Soft tissues: Grossly normal thyroid. Body wall edema. Scattered subcentimeter mediastinal lymph nodes, nonspecific. The esophagus is mildly distended with gas and fluid. Small sliding type hiatal hernia noted. Atherosclerosis of the aorta. Multichamber enlargement of the heart. Coronary artery calcification. No pericardial or pleural effusion. Upper abdomen normal. Lungs and airways: No pneumothorax. Mild diffuse bronchial wall thickening. Pulmonary arteries are not significantly enlarged relative to adjacent bronchi. No interlobular septal thickening. Significant focal radiolucency consistent with air trapping in the anterior and apical portions of the left upper lobe. Multifocal predominantly peribronchovascular groundglass and solid consolidation in the right lung with more extensive confluent round glass and solid consolidation in the left lower lobe. Musculoskeletal: Degenerative changes of the spine. Exaggerated thoracic kyphosis without a focal compression deformity. Suspected underlying osteopenia. IMPRESSION: 1. Allowing for suboptimal image quality, no evidence of pulmonary embolus. 2. Extensive multifocal infiltrates, which are confluent in the left lower lobe and patchy peribronchovascular in the left lung. This is consistent with multifocal pneumonia. 3. Air trapping in the left upper lobe is likely on a chronic basis and may relate to bronchial atresia among other etiologies. 4. Cardiomegaly. 5. Elevated right heart pressure suggested by reflux of contrast into the hepatic veins. The pulmonary infiltrates are not suggestive of edema. Electronically signed by: Markus Farias M.D. 12/29/2018 11:[address] abd pelvis IV con only CT DOSE: HISTORY: Pain. Nausea. abnl LFTs TECHNIQUE: Multiaxial CT images of the abdomen and pelvis were performed following the use of intravenous contrast. A dose lowering technique was util ized adhering to the principles of ALARA. COMPARISON STUDY: None. FINDINGS: Lung bases demonstrate bilateral diffuse parenchymal infiltrative change. Somewhat nodular-type characteristics are identified at the right base. Reference is made to a CT examination of the same date. Mild hepatic inhomogeneity. Findings consistent with hepatic cirrhosis. Small hiatal hernia. Spleen is unremarkable. Findings consistent with edematous change of the gallbladder wall versus moderate pericholecystic edematous change. No evidence for biliary ductal dilatation. Mild cortical scarring of the kidneys with no evidence for hydronephrosis. Nonobstructive bowel pattern. Uterus is anteflexed. Prior right hip arthroplasty. Old healed fractures of the pubic rings. Trace pelvic ascites. Nonobstructive bowel pattern. IMPRESSION: 1. Bilateral parenchymal infiltrative change with a somewhat nodular type ap pearance involving the right base. 2. Hepatic cirrhosis with findings of fatty infiltration of the liver. 3. Edematous gallbladder wall versus pericholecystic edema raising the possibility of cholecystitis. Right upper quadrant ultrasound is suggested as follow-up. 4. Trace pelvic ascites. 5. Mild body wall anasarca. Electronically signed by: Karthik Gomez M.D. 12/29/2018 11:56 AM Code Status & VTE Plan Code Status full code VTE Prophylaxis Plan VTE Prophylaxis will be ordered: Yes PG Care Time/CCT Total # of Minutes Spent Total Time Spent with Patient: Total time spent is greater than 50% in coordination of care (as documented) at patient's floor/unit and/or counseling patient: 70
[2018-12-29] MEDS ORDERED: LABETALOL HCL IV 5 MG/ML 20ML IV STA ×2 (14:52→15:37)
[2018-12-29] MEDS: HEPARIN SODIUM/DEXTROSE 25,000 UNITS/500 ML BAG IV SCH ×2 (15:30→16:52)
[2018-12-29] MEDS ORDERED: MEMANTINE 28 MG PO SCH (16:47)
[2018-12-29] MEDS ORDERED: ALUMINUM/MAGNESIUM SUSP 30 ML UDC PO PRN (16:47)
[2018-12-29] MEDS ORDERED: ONDANSETRON INJ 2 MG/ML 2 ML VIAL IV PRN (16:47)
[2018-12-29] MEDS ORDERED: HydrALAZINE HCL 20 MG/ML VIAL IV PRN (16:47)
[2018-12-29] MEDS ORDERED: ALUMINUM/MAGNESIUM/SIMETH (MAALOX MAX) 30 ML UDC PO PRN (16:47)
[2018-12-29] MEDS ORDERED: POLYETHYLENE (MIRALAX) 17 GM PACK PO PRN (16:47)
[2018-12-29] MEDS ORDERED: MAGNESIUM HYDROXIDE SUSP 30 ML UDC PO PRN (16:47)
[2018-12-29] MEDS ORDERED: VANCOMYCIN HCL 1,000 MG in SODIUM CHLORIDE 0.9% 250 ML IV ONE ×2 (17:15→21:30)
[2018-12-29] MEDS: DONEPEZIL HCL 10 MG TAB PO SCH (17:46)
[2018-12-29] MEDS: LORazepam 0.5 MG TAB PO SCH ×2 (17:46→20:44)
[2018-12-29] MEDS: PIPERACILLIN/TAZOBACTAM 3.375 GM in DEXTROSE 5% 100 ML IV SCH (19:11)
--- NOTE | 2018-12-29 20:25 | Pharmacy Report ---
Pharmacy Abx Initial Consult - Date of Service December 29, 2018 - Pharmacy Dosing Scope Date of Consult: 12/29/18 Consultation requested by: Lew Barth. Pharmacy is consulted to initiate Vancomycin IV dosing therapy, order appropriate labs and adjust drug dose/frequency. - Subjective The patient is a 78 year old F admitted on 12/29/18 13:46. - Objective Height: 5 ft 7 in Weight: 88.6 kg Vital Signs (Past 12hrs): Vital Signs Temp Pulse Pulse Resp BP BP Pulse Ox 12/29/18 19:57 88 20 95 12/29/18 19:45 37.2 C 107 H 20 194/104 H 93 12/29/18 19:14 117 H 12/29/18 16:18 37.3 C 102 H 22 101/83 99 12/29/18 16:04 114 H 26 H 100 12/29/18 15:30 112 H 23 165/129 H 99 12/29/18 15:21 138 H 27 H 135/105 H 95 12/29/18 15:20 121 H 25 H 176/123 H 100 12/29/18 15:10 138 H 27 H 135/105 H 95 12/29/18 15:01 136 H 25 H 160/96 H 100 12/29/18 14:44 159 H 29 H 225/144 H 12/29/18 14:35 144 H 34 H 98 12/29/18 14:34 150 H 31 H 236/221 H 12/29/18 14:30 152 H 30 H 237/189 H 12/29/18 14:10 141 H 29 H 205/143 H 97 12/29/18 13:08 129 H 23 210/147 H 12/29/18 13:01 134 H 219/122 H 92 12/29/18 12:31 133 H 24 180/135 H 97 12/29/18 12:01 134 H 19 202/144 H 97 12/29/18 11:01 133 H 20 200/128 H 96 12/29/18 10:48 137 H 28 H 152/128 H 97 12/29/18 10:19 162 H 32 H 198/170 H 96 12/29/18 09:38 140 H 20 96 12/29/18 09:17 156 H 32 H 229/186 H 96 Lab Results (24hrs): Laboratory Tests (24 Hours) 12/29/18 12/29/18 09:10 09:10 WBC 16.40 H Neut # (Auto) 13.23 H Creatinine 0.80 Est Cr Clr Drug Dosing Not Reportable Micro Results: 12/29/18 09:42 Aerobic Blood Culture - Pending Blood Anaerobic Blood Culture - Pending 12/29/18 09:10 Aerobic Blood Culture - Pending Blood Anaerobic Blood Culture - Pending - Assessment & Plan Assessment 78 year old F admitted with SOB and found to have Pneumonia. Started on Vancomycin and Zosyn. Vancomycin 2000 mg IV sent to ED at 1400 today was stopped after about 5 mins since patient's hand turned red per nurse Jesse Ann. Pharmacy was notified by nurse around [address] Beltran was informed and he directed the phone to pharmacy with instructions to slow down the Vancomycin rate. Plan Vancomycin IV * Estimated PK Parameters: Vd 0.7 L/kg, Abel 0.058 hr-1, t1/2 11.9 hr * Loading dose: Vancomycin 2000 IV is being given currently in split doses of 1000 mg IV x 2 and infusing slowly at 75 ml/hr. Each bag will take 3&1/2 hrs to infuse. * Maintenance dose: Vancomycin 1250 mg IV (14 mg/kg) every 18 hours * Goal trough level for Pneumonia: 15 to 20 mcg/mL * Trough ordered before 3rd maintenance dose on 12/31 before dose at 1999. Pharmacy will continue to follow and will adjust dose/frequency as necessary. Thank you.
[2018-12-29 20:29] LABS: Partial Thromboplastin Ratio 1.4; Partial Thromboplastin Time 37.9 Seconds (21.0-31.0)
[2018-12-29] MEDS: DOCUSATE SODIUM 100 MG CAP PO SCH (20:44)
[2018-12-29] MEDS: BusPIRone 15 MG TAB PO SCH (20:44)
[2018-12-29] MEDS: SOTALOL HCL 80 MG TAB PO SCH (20:44)
[2018-12-29] MEDS ORDERED: HEPARIN IV BOLUS 4,500 UNITS in SYRINGE 0 ML IV ONE (21:45)
[2018-12-30] MEDS: PIPERACILLIN/TAZOBACTAM 3.375 GM in DEXTROSE 5% 100 ML IV SCH (03:10)
[2018-12-30] MEDS ORDERED: VANCOMYCIN HCL 1,250 MG in SODIUM CHLORIDE 0.9% 250 ML IV SCH (04:00)
[2018-12-30 04:28] LABS: Basophils # (auto) 0.01 K/uL (0-0.2); Basophils % (auto) 0.1 %; Eosinophils # (auto) 0.01 K/uL (0-0.5); Eosinophils % (auto) 0.1 %; Hematocrit (blood only) 36.6 % (37-47); Hemoglobin 11.9 g/dL (12.0-16.0); Immature Granulocytes # (auto) 0.05 K/uL (0.00-0.02); Immature Granulocytes % (auto) 0.4 %; Lymphocytes # (auto) 1.37 K/uL (1.2-3.4); Mean Corpuscular Hgb Conc 32.5 g/dL (32-36); Monocytes # (auto) 1.31 K/uL (0.11-0.59); Monocytes % (auto) 9.6 %; Neutrophils # (auto) 10.95 K/uL (1.4-6.5); Neutrophils % (auto) 79.8 %; Platelet Count 161 K/uL (130-400); RDW Coefficient of Variation 15.2 % (11.5-14.5); RDW Standard Deviation 45.8 fL (36.4-46.3); Red Blood Count 4.41 M/uL (4.2-5.4)
[2018-12-30 04:48] LABS: Partial Thromboplastin Ratio 3.3
[2018-12-30 04:49] LABS: Albumin Level 2.1 gm/dl (3.4-5.0); BUN Creatinine Ratio 34.4 (10-20); Bilirubin Direct 0.4 mg/dl (0-0.2); Creatinine Clr Calc Pharmacy 71.4 ml/min; Est GFR (African American) 90.8; Est GFR (Non-African American) 78.3; Potassium 3.4 mmol/L (3.5-5.1)
[2018-12-30 04:52] LABS: Partial Thromboplastin Time 90.4 Seconds (21.0-31.0)
[2018-12-30 05:01] LABS: Thyroid Stimulating Hormone 1.16 uIu/ml (0.300-4.500); Total Protein 5.7 gm/dl (6.4-8.2)
[2018-12-30] MEDS ORDERED: PNEUMOCOCCAL ADMINISTRATION CHARGE ONE (08:00)
[2018-12-30] MEDS ORDERED: PNEUMOCOCCAL POLYSACCHARIDES 25 MCG/0.5 ML VIAL/SYR IM ONE (08:00)
[2018-12-30] MEDS ORDERED: INFLUENZA VACCINE HIGH DOSE 65+ 0.5 ML SYR IM ONE (08:00)
[2018-12-30] MEDS ORDERED: INFLUENZA ADMINISTRATION CHARGE ONE (08:00)
[2018-12-30] MEDS: VENLAFAXINE HCL XR 75 MG CAPXR PO SCH (08:43)
[2018-12-30] MEDS: ASPIRIN 81 MG ECTAB PO SCH (08:43)
[2018-12-30] MEDS: SOTALOL HCL 80 MG TAB PO SCH ×2 (08:44→20:23)
[2018-12-30] MEDS: VENLAFAXINE HCL XR 150 MG CAPXR PO SCH (08:44)
[2018-12-30] MEDS: BusPIRone 15 MG TAB PO SCH ×3 (08:44→20:22)
[2018-12-30] MEDS: DONEPEZIL HCL 10 MG TAB PO SCH (08:45)
[2018-12-30] MEDS: LISINOPRIL 2.5 MG TAB PO SCH (08:45)
[2018-12-30] MEDS: DOCUSATE SODIUM/SENNA 50/8.6MG TAB PO SCH (08:45)
[2018-12-30] MEDS: LORATADINE 10 MG TAB PO SCH (08:45)
[2018-12-30] MEDS: DOCUSATE SODIUM 100 MG CAP PO SCH ×2 (08:45→20:22)
[2018-12-30] MEDS: LISINOPRIL 10 MG TAB PO SCH (08:45)
[2018-12-30] MEDS ORDERED: CEFEPIME CONSULT ACTIVE PRN (09:15)
[2018-12-30] MEDS: LORazepam 0.5 MG TAB PO SCH ×3 (09:30→20:27)
--- NOTE | 2018-12-30 09:36 | Hospitalist Progress Note ---
Date of Service December 30, 2018 Assessment & Plan (1) Hypoxia: Patient continues to be on 3 L of oxygen. She did not require oxygen at home. It is caused by hospital-acquired pneumonia. Patient developed "red man" syndrome. Vancomycin discontinued and Zosyn and she is started on cefepime and Flagyl to cover for hospital-acquired and possibly aspiration pneumonia. Plan to do a swallow study. Continue breathing treatments every 4 hours as needed. Continue supplemental oxygen oxygen while patient in recovery phase. Present on Admission?: Yes (2) Hypertensive urgency: Blood pressure is still not well controlled. Will start hydralazine 10 mg p.o. 3 times daily as needed for elevated blood pressure 160/90. Continue home medicine lisinopril continue sotalol 120 mg p.o. twice daily for arrhythmia. Continue baby aspirin 81 mg p.o. daily. Plan to check A1c and fasting lipid panel. Continue monitoring blood pressure. Low-sodium diet. Present on Admission?: Yes (3) Cholecystitis: From CT scan pelvis it is not completely clear if patient has cholecystitis or not. We will follow-up with right upper quadrant sonogram to rule out possible cholecystitis. Patient does not have any particular complain of right upper quadrant pain. She has mildly leukocytosis of 13,000 but could be related to her ongoing hospital-acquired pneumonia. Present on Admission?: Yes (4) Abnormal LFTs: Continue monitoring AST and ALT Present on Admission?: Yes (5) Atrial fibrillation with RVR: Persistent A. fib's. Continue sotalol. Continue telemetry. Patient was started on heparin drip yesterday for A. fib's with RVR. Plan to do a transthoracic echo. Will consult cardiology after echo is done. Plan to switch patient to Eliquis 5 mg 5 mg twice daily for A. fib's. Present on Admission?: Yes (6) DVT prophylaxis: Subjective Pt seen and examined at the bedside.No acute events over night. Improving slowly. Patient continues to have bilateral pneumonia. Afebrile. P.o. intake slowly improving. Patient continues to cough and be congested. Patient denies fever, chills, chest pain, shortness of breath, frequency, urgency, hemoptysis, hematemesis, syncope or near syncope. Review of Systems Review of Systems: All systems reviewed & are unremarkable except as noted in HPI & below Physical Exam Constitutional: WD/WN, vitals as above + obese Eyes: PERRL, conjunctivae normal, anicteric sclerae ENMT: external ear and nose normal, oropharynx normal Neck: trachea midline, no thyromegaly Respiratory: normal respiratory effort Auscultation: + crackles and + wheezes (Crackles and wheezes bilaterally. Worse on the right) Cardiovascular: Rate/Rhythm: + irregularly irregular Heart Sounds: normal S1 and normal S2 Chest (Breasts): normal inspection/palpation of breasts Gastrointestinal (Abdomen): normal bowel sounds, soft, nontender, no hepatosplenomegaly Musculoskeletal: no cyanosis or clubbing, extremities motor strength 5/5 Skin: no rashes, warm and dry Neurologic: patellar DTR's 2+ bilat, sensation intact Psychiatric: A+Ox3, euthymic affect Lymphatic: no cervical or axillary lymphadenopathy Results & Data Vital Signs (Past 12 Hours) Vital Signs Temp Pulse Pulse Resp BP Pulse Ox 12/30/18 07:26 36.7 C 115 H 20 144/109 H 100 12/30/18 04:28 37.0 C 119 H 22 120/95 90 12/30/18 01:12 37.2 C 98 H 20 172/86 H 95 12/29/18 23:12 86 20 99 PG Care Time/CCT Total # of Minutes Spent Total Time Spent with Patient: Total time spent is greater than 50% in apprentice cook rdination of care (as documented) at patient's floor/unit and/or counseling patient:
--- NOTE | 2018-12-30 11:29 | Ultrasound Report ---
ABDOMINAL ULTRASOUND, RIGHT UPPER QUADRANT HISTORY: POSSIBLE CHOLECYSTITIS. COMPARISON: CT of the abdomen and pelvis performed earlier today. FINDINGS: The liver is heterogeneous. There is increased echogenicity of the portal triads. There is no biliary ductal dilatation. The common bile duct measures 5 mm in caliber. No hepatic lesions are i dentified. The pancreas body is normal. The head and tail are partially obscured. No gallstones are n oted. There is no gallbladder wall thickening. Gallbladder is moderately distended. IMPRESSION: 1. Moderate gallbladder distention. No gallstones. These findings do not strongly suggest acute ravindra cystitis although a hepatobiliary scan could be obtained. 2. Suspected cirrhosis, potentially on the basis of right heart dysfunction given the findings on CT. This could also account for gallbladder wall thickening on that exam. Electronically signed by: Reece Millan M.D. 12/30/2018 11:28 AM
[2018-12-30 11:49] LABS: Partial Thromboplastin Ratio 1.6; Partial Thromboplastin Time 44.1 Seconds (21.0-31.0)
[2018-12-30] MEDS: APIXABAN 5 MG TABLET PO SCH ×2 (12:10→20:22)
[2018-12-30] MEDS: MEMANTINE HCL 10 MG TAB PO SCH ×2 (12:10→20:22)
[2018-12-30] MEDS: HydrALAZINE 10 MG TAB PO PRN ×2 (12:53→23:52)
[2018-12-30] MEDS ORDERED: CEFEPIME 1,000 MG in SYRINGE 0 ML IV SCH (14:00)
[2018-12-30] MEDS ORDERED: HydrALAZINE 10 MG TAB PO PRN (15:30)
[2018-12-30] MEDS: metroNIDAZOLE 500 MG/100 ML BAG IV SCH ×2 (18:02→23:52)
[2018-12-30] MEDS: CEFEPIME 2,000 MG in SYRINGE 7.5 ML IV SCH ×2 (18:03→23:52)
[2018-12-30] MEDS: methylPREDNISolone 40 MG in SYRINGE 0 ML IV SCH (20:22)
[2018-12-30] MEDS: METOPROLOL TARTRATE 25 MG TAB PO SCH (20:22)
[2018-12-30] MEDS ORDERED: APIXABAN 5 MG TABLET PO SCH (21:00)
[2018-12-31] MEDS ORDERED: ACETYLCYSTEINE 20% INHAL SOLN ***DISPENSED BY RESP. INH ONE (01:35)
[2018-12-31] MEDS: CHLORASEPTIC 1.4% SOLN 180 ML BTL MT PRN ×2 (01:46→19:45)
[2018-12-31] MEDS: ALBUT/IPRATROP 3MG/0.5MG NEB 3 ML VIAL NEB PRN (01:50)
[2018-12-31 06:26] LABS: Basophils # (auto) 0.01 K/uL (0-0.2); Basophils % (auto) 0.1 %; Hematocrit (blood only) 39.7 % (37-47); Hemoglobin 13.1 g/dL (12.0-16.0); Immature Granulocytes # (auto) 0.06 K/uL (0.00-0.02); Immature Granulocytes % (auto) 0.4 %; Lymphocytes # (auto) 0.89 K/uL (1.2-3.4); Lymphocytes % (auto) 6.1 %; Mean Corpuscular Hemoglobin 27.3 pg (25-34); Mean Corpuscular Volume 82.7 fL (80-100); Mean Platelet Volume 10.2 fL (7.4-10.4); Monocytes # (auto) 0.67 K/uL (0.11-0.59); Monocytes % (auto) 4.6 %; Neutrophils # (auto) 13.04 K/uL (1.4-6.5); Neutrophils % (auto) 88.8 %; Platelet Count 212 K/uL (130-400); RDW Coefficient of Variation 15.5 % (11.5-14.5); RDW Standard Deviation 46.6 fL (36.4-46.3); White Blood Count 14.67 K/uL (4.8-10.8)
[2018-12-31 07:03] LABS: Albumin Globulin Ratio 0.5 (0.9-2); Albumin Level 2.4 gm/dl (3.4-5.0); BUN Creatinine Ratio 34.8 (10-20); Bilirubin,Total 0.9 mg/dl (0.2-1); Calcium 8.5 mg/dl (8.5-10.1); Creatinine Clr Calc Pharmacy 76.3 ml/min; Est GFR (Non-African American) 82.8; Globulin 4.4 gm/dl (2.5-4.0); Potassium 4.1 mmol/L (3.5-5.1); Total Protein 6.8 gm/dl (6.4-8.2)
[2018-12-31] MEDS: guaiFENesin 600 MG TABCR PO SCH ×2 (10:10→21:01)
[2018-12-31] MEDS: DOCUSATE SODIUM 100 MG CAP PO SCH ×2 (10:11→21:01)
[2018-12-31] MEDS: DONEPEZIL HCL 10 MG TAB PO SCH (10:12)
[2018-12-31] MEDS: DOCUSATE SODIUM/SENNA 50/8.6MG TAB PO SCH (10:12)
[2018-12-31] MEDS: SOTALOL HCL 80 MG TAB PO SCH ×2 (10:13→21:00)
[2018-12-31] MEDS: BusPIRone 15 MG TAB PO SCH ×3 (10:14→21:00)
[2018-12-31] MEDS: LORATADINE 10 MG TAB PO SCH (10:15)
[2018-12-31] MEDS: ASPIRIN 81 MG ECTAB PO SCH (10:15)
[2018-12-31] MEDS: VENLAFAXINE HCL XR 150 MG CAPXR PO SCH (10:16)
[2018-12-31] MEDS: VENLAFAXINE HCL XR 75 MG CAPXR PO SCH (10:16)
[2018-12-31] MEDS: METOPROLOL TARTRATE 25 MG TAB PO SCH (10:17)
[2018-12-31] MEDS: APIXABAN 5 MG TABLET PO SCH ×2 (10:17→20:59)
[2018-12-31] MEDS: MEMANTINE HCL 10 MG TAB PO SCH ×2 (10:17→21:00)
[2018-12-31] MEDS: LISINOPRIL 2.5 MG TAB PO SCH (10:18)
[2018-12-31] MEDS: LISINOPRIL 10 MG TAB PO SCH (10:18)
[2018-12-31] MEDS: metroNIDAZOLE 500 MG/100 ML BAG IV SCH ×3 (10:20→23:15)
[2018-12-31] MEDS: CEFEPIME 2,000 MG in SYRINGE 7.5 ML IV SCH ×3 (10:21→23:15)
[2018-12-31] MEDS: methylPREDNISolone 40 MG in SYRINGE 0 ML IV SCH ×2 (10:21→20:58)
[2018-12-31] MEDS: BENZONATATE 100 MG CAPSULE PO SCH ×3 (10:30→20:59)
[2018-12-31] MEDS: LORazepam 0.5 MG TAB PO SCH ×3 (10:36→20:57)
[2018-12-31] MEDS: ALBUT/IPRATROP 3MG/0.5MG NEB 3 ML VIAL NEB SCH ×4 (10:43→23:10)
--- NOTE | 2018-12-31 18:47 | Hospitalist Progress Note ---
Date of Service December 31, 2018 Assessment & Plan (1) Hypoxia: Patient continues to be on 3 L of oxygen. She did not require oxygen at home. It is caused by hospital-acquired pneumonia. Patient developed "red man" syndrome. Vancomycin discontinued and Zosyn and she is started on cefepime and Flagyl to cover for hospital-acquired and possibly aspiration pneumonia. Plan to do a swallow study. Continue breathing treatments every 4 hours as needed. Continue supplemental oxygen oxygen while patient in recovery phase. (2) Hypertensive urgency: Blood pressure is still not well controlled. Will start hydralazine 10 mg p.o. 3 times daily as needed for elevated blood pressure 160/90. Continue home medicine lisinopril continue sotalol 120 mg p.o. twice daily for arrhythmia. Continue baby aspirin 81 mg p.o. daily. Plan to check A1c and fasting lipid panel. Continue monitoring blood pressure. Low-sodium diet. (3) Cholecystitis: From CT scan pelvis it is not completely clear if patient has cholecystitis or not. We will follow-up with right upper quadrant sonogram to rule out possible cholecystitis. Patient does not have any particular complain of right upper quadrant pain. She has mildly leukocytosis of 13,000 but could be related to her ongoing hospital-acquired pneumonia. (4) Abnormal LFTs: Trending down, continue monitoring AST and ALT. Will check hepatic panel. (5) Atrial fibrillation with RVR: Persistent A. fib's. Continue sotalol. Continue telemetry. Patient was started on heparin drip yesterday for A. fib's with RVR. Patient was initially on heparin drip then started Eliquis Eliquis 5 mg 5 mg twice daily for A. fib's. (6) DVT prophylaxis: Eliquis Present on Admission?: Yes Subjective Seen and examined at the bedside. Afebrile. Slowly improving. No acute events overnight. Patient continues to have bilateral pneumonia. Patient still has cough cough and is congested. Patient denies fever chills headache chest pain, shortness of breath, frequency, urgency hemoptysis, hematemesis, syncope or near syncope. Review of Systems Review of Systems: All systems reviewed & are unremarkable except as noted in HPI & below Physical Exam Constitutional: WD/WN, vitals as above + obese Eyes: PERRL, conjunctivae normal, anicteric sclerae ENMT: external ear and nose normal, oropharynx normal Neck: trachea midline, no thyromegaly Respiratory: normal respiratory effort Auscultation: + crackles and + wheezes (Crackles and wheezes bilaterally. Worse on the right) Cardiovascular: Rate/Rhythm: + irregularly irregular Heart Sounds: normal S1 and normal S2 Chest (Breasts): normal inspection/palpation of breasts Gastrointestinal (Abdomen): normal bowel sounds, soft, nontender, no hepatosplenomegaly Musculoskeletal: no cyanosis or clubbing, extremities motor strength 5/5 Skin: no rashes, warm and dry Neurologic: patellar DTR's 2+ bilat, sensation intact Psychiatric: A+Ox3, euthymic affect Lymphatic: no cervical or axillary lymphadenopathy Results & Data Vital Signs (Past 12 Hours) Vital Signs Temp Pulse Resp BP BP Pulse Ox 12/31/18 15:45 36.9 C 116 H 22 162/95 H 95 12/31/18 14:46 85 18 94 12/31/18 11:25 37.0 C 109 H 24 165/129 H 95 12/31/18 10:43 101 H 18 95 12/31/18 07:23 36.8 C 102 H 24 183/124 H 98 PG Care Time/CCT Total # of Minutes Spent Total Time Spent with Patient: Total time spent is greater than 50% in coordination of care (as documented) at patient's floor/unit and/or counseling patient:
[2018-12-31] MEDS ORDERED: METOPROLOL TARTRATE 25 MG TAB PO SCH (21:00)
[2019-01-01] MEDS: HydrALAZINE 10 MG TAB PO PRN ×3 (00:11→11:57)
[2019-01-01] MEDS: ALBUT/IPRATROP 3MG/0.5MG NEB 3 ML VIAL NEB SCH ×6 (03:10→23:15)
[2019-01-01 06:32] LABS: Albumin Level 2.3 gm/dl (3.4-5.0); BUN Creatinine Ratio 44.2 (10-20); Calcium 8.4 mg/dl (8.5-10.1); Creatinine Clr Calc Pharmacy 67.9 ml/min; Est GFR (African American) 85.1; Est GFR (Non-African American) 73.4; Potassium 4.1 mmol/L (3.5-5.1)
[2019-01-01 06:41] LABS: Albumin Globulin Ratio 0.6 (0.9-2); Bilirubin Direct 0.2 mg/dl (0-0.2); Bilirubin,Total 0.7 mg/dl (0.2-1); Globulin 4.1 gm/dl (2.5-4.0); Total Protein 6.4 gm/dl (6.4-8.2)
--- NOTE | 2019-01-01 07:21 | Hospitalist Progress Note ---
Date of Service January 01, 2019 Assessment & Plan (1) Hypoxia: Patient continues to be on 3 L of oxygen. She did not require oxygen at home. It is caused by hospital-acquired pneumonia. Patient developed "red man" syndrome. Vancomycin discontinued and Zosyn and she is started on cefepime and Flagyl to cover for hospital-acquired and possibly aspiration pneumonia. Plan to do a swallow study. Continue breathing treatments every 4 hours as needed. Continue supplemental oxygen oxygen while patient in recovery phase. (2) Hypertensive urgency: Blood pressure is still not well controlled. Will start hydralazine 10 mg p.o. 3 times daily as needed for elevated blood pressure 160/90. Continue home medicine lisinopril continue sotalol 120 mg p.o. twice daily for arrhythmia. Continue baby aspirin 81 mg p.o. daily. Plan to check A1c and fasting lipid panel. Continue monitoring blood pressure. Low-sodium diet. (3) Cholecystitis: From CT scan pelvis it is not completely clear if patient has cholecystitis or not. We will follow-up with right upper quadrant sonogram to rule out possible cholecystitis. Patient does not have any particular complain of right upper quadrant pain. She has mildly leukocytosis of 14,67 but could be related to her ongoing hospital-acquired pneumonia and steroids that were started for acute exacerbation of COPD. Abdominal sonogram shows moderate gallbladder distention. No gallstones. These findings do not strongly suggest acute cholecystitis although hepatobiliary scan could be obtained. Suspected cirrhosis, potentially on the basis of the right heart dysfunction given the finding on the CT this also could account for gallbladder wall thickening on the exam. (4) Abnormal LFTs: Trending down, continue monitoring AST and ALT. Will check hepatic panel. (5) Atrial fibrillation with RVR: Persistent A. fib's. Continue sotalol. Continue telemetry. Patient was started on heparin drip yesterday for A. fib's with RVR. Patient was initially on heparin drip then started Eliquis Eliquis 5 mg 5 mg twice daily for A. fib's.Will consult cardiology. Pending TTE result. (6) DVT prophylaxis: Lyndsay Leblanc Pt seen and examined at the bedside. Patient continues to be hypertensive on occasions. Poor control of blood pressure. Afebrile. Patient continues to have bilateral pneumonia. Patient still has cough and is congested. Patient denies fever chills headache chest pain, shortness of breath, frequency, urgency hemoptysis, hematemesis, syncope or near syncope. Review of Systems Review of Systems: All systems reviewed & are unremarkable except as noted in HPI & below Physical Exam Constitutional: WD/WN, vitals as above + obese Eyes: PERRL, conjunctivae normal, anicteric sclerae ENMT: external ear and nose normal, oropharynx normal Neck: trachea midline, no thyromegaly Respiratory: normal respiratory effort Auscultation: + crackles and + wheezes (Crackles and wheezes bilaterally. Worse on the right) Cardiovascular: Rate/Rhythm: + irregularly irregular Heart Sounds: normal S1 and normal S2 Chest (Breasts): normal inspection/palpation of breasts Gastrointestinal (Abdomen): normal bowel sounds, soft, nontender, no hepatosplenomegaly Musculoskeletal: no cyanosis or clubbing, extremities motor strength 5/5 Skin: no rashes, warm and dry Neurologic: patellar DTR's 2+ bilat, sensation intact Psychiatric: A+Ox3, euthymic affect Lymphatic: no cervical or axillary lymphadenopathy Results & Data Vital Signs (Past 12 Hours) Vital Signs Temp Pulse Pulse Pulse Resp BP BP 01/01/19 06:59 103 H 16 01/01/19 03:10 91 H 18 01/01/19 02:41 36.5 C 92 H 20 178/149 H 12/31/18 23:57 89 12/31/18 23:34 36.6 C 98 H 20 189/91 H 12/31/18 23:10 93 H 17 12/31/18 20:03 115 H 15 12/31/18 19:43 36.8 C 97 H 20 164/112 H Pulse Ox 01/01/19 06:59 96 01/01/19 03:10 93 01/01/19 02:41 99 12/31/18 23:57 12/31/18 23:34 95 12/31/18 23:10 96 12/31/18 20:03 96 12/31/18 19:43 96 PG Care Time/CCT Total # of Minutes Spent Total Time Spent with Patient: Total time spent is greater than 50% in coordination of care (as documented) at patient's floor/unit and/or counseling p atient:
[2019-01-01] MEDS ORDERED: PERFLUTREN LIPID MICROSPHERE (DEFINITY) IV ONE (08:34)
[2019-01-01] MEDS: metroNIDAZOLE 500 MG/100 ML BAG IV SCH ×3 (08:39→23:31)
[2019-01-01] MEDS: methylPREDNISolone 40 MG in SYRINGE 0 ML IV SCH ×2 (08:39→20:14)
[2019-01-01] MEDS: DONEPEZIL HCL 10 MG TAB PO SCH (08:40)
[2019-01-01] MEDS: VENLAFAXINE HCL XR 150 MG CAPXR PO SCH (08:40)
[2019-01-01] MEDS: APIXABAN 5 MG TABLET PO SCH ×2 (08:40→20:17)
[2019-01-01] MEDS: guaiFENesin 600 MG TABCR PO SCH ×2 (08:40→20:18)
[2019-01-01] MEDS: MEMANTINE HCL 10 MG TAB PO SCH ×2 (08:40→20:15)
[2019-01-01] MEDS: METOPROLOL TARTRATE 25 MG TAB PO SCH ×2 (08:40→20:17)
[2019-01-01] MEDS: VENLAFAXINE HCL XR 75 MG CAPXR PO SCH (08:40)
[2019-01-01] MEDS: BENZONATATE 100 MG CAPSULE PO SCH ×3 (08:40→20:16)
[2019-01-01] MEDS: BusPIRone 15 MG TAB PO SCH ×3 (08:40→20:15)
[2019-01-01] MEDS: DOCUSATE SODIUM 100 MG CAP PO SCH ×2 (08:40→20:18)
[2019-01-01] MEDS: DOCUSATE SODIUM/SENNA 50/8.6MG TAB PO SCH (08:40)
[2019-01-01] MEDS: ASPIRIN 81 MG ECTAB PO SCH (08:40)
[2019-01-01] MEDS: SOTALOL HCL 80 MG TAB PO SCH ×2 (08:45→20:16)
[2019-01-01] MEDS: GUAIFENESIN/CODEINE 200MG/20MG 10ML UDC PO PRN ×2 (08:53→20:32)
[2019-01-01] MEDS: LORazepam 0.5 MG TAB PO SCH ×3 (08:53→20:14)
[2019-01-01] MEDS: CEFEPIME 2,000 MG in SYRINGE 7.5 ML IV SCH ×3 (08:53→23:31)
[2019-01-01] MEDS: LISINOPRIL 20 MG TAB PO SCH (10:05)
--- NOTE | 2019-01-01 14:56 | Cardiology Consultation ---
Date of Consultation January 01, 2019 Assessment & Plan (1) Atrial fibrillation with RVR: Present on Admission?: Yes (2) HTN (hypertension): Mrs. Tapia is a 78 year old female with a history of Paroxysmal Atrial Fibrillation (on Sotalol 120 mg b.i.d. but not chronically anticoagulated), Hypertension, Mitral Regurgitation, Tricuspid Regurgitation, Depression, Anxiety, Dementia, and LVH who was admitted on 12/29/2018 with acute hypoxic respiratory failure and a multi lobar pneumonia. She was seen in the ER on 12/26/2018 and 12/28/2018 and diagnosed with bronchitis -- attempted to treat as an outpatient. She presented to the ER again on 12/29/2018 with worsening symptoms and worsening condition. She was hypoxic with an O2 saturation of 86%. At all of these visits she was noted to be markedly tachycardic secondary to A- Fib with V-rates in the 140s. When she was admitted on 12/29/2018 she was started on a heparin drip and has subsequently converted to Eliquis 5 mg b.i.d.. At the present time, her ventricular response rate has improved significantly, and she is asymptomatic with her atrial fibrillation history -- but her ventricular response rate has improved as she has had her underlying illness treated and with adjustments in medications. Unfortunately, we do not know when this episode of atrial fibrillation started and she has only been anticoagulated for the past 3 days. Therefore we need to have her fully anticoagulated for a minimum of 3-1/2 weeks before considering active attempts at getting her back to a normal sinus rhythm. Therefore recommend the followin. Add Diltiazem CD 120 mg daily for both rate control and to lower BP. 2. Continue Sotalol 120 mg b.i.d. -- we can titrate this to 160 mg b.i.d. after she has been anticoagulated for at least 3 and half weeks. 3. Continue Lopressor 50 mg b.i.d.. 4. Continue Eliquis 5 mg b.i.d.. 5. Continue aspirin 81 mg daily. 6. Continue lisinopril 12.5 mg daily. We will plan on meeting with the patient as an outpatient in 3.5 weeks for hospital follow-up and to discuss further management. Present on Admission?: Yes Supervising Physician Co-Signing Physician Notes Dima Hartley MD. History of Present Illness Reason for Consultation: -- Atrial Fibrillation with RVR. Requesting Physician: Lucretia Stallworth MD Attending Physician: Dima Hartley MD History of Present Illness Mrs. Tapia is a 78 year old female with a history of Paroxysmal Atrial Fibrillation, Hypertension, Mitral Regurgitation, Tricuspid Regurgitation, Depression, Anxiety, Dementia, and LVH who was admitted on 12/29/2018 with acute hypoxic respiratory failure and a multi lobar pneumonia. She was seen in the ER on 12/26/2018 and 12/28/2018 and diagnosed with bronchitis -- attempted to treat as an outpatient. She presented to the ER again on 12/29/2018 with worsening symptoms and worsening condition. She was hypoxic with an O2 saturation of 86%. At all of these visits she was noted to be markedly tachycardic secondary to A- Fib with V-rates in the 140s. Historically she was not anticoagulated leading up to her first 2 emergency room visits. When she was admitted on 12/29/2018 she was started on a heparin drip and has subsequently converted to Eliquis 5 mg b.i.d.. At the present time -- she is being seen in room 209. She does not recall a lot of the details of her presentation. She remains in atrial fibrillation with ventricular response rates in the 90s currently and has been in atrial fibrillation throughout this hospitalization. She is feeling significantly better at this time, although she still has some periodic wheezing and cough but she denies any shortness of breath. Patient has been asymptomatic with her atrial fibrillation with RVR in the past. She has no symptoms currently even know she is in atrial fibrillation. Patient denies any chest pain heaviness, tightness, or pressure. Breathing has improved significantly since she was admitted. She denies any orthopnea or PND. She has not had any palpitations, syncope, or near syncope. Her troponin I levels have been negative. She has a mildly elevated proBNP earlier in her hospitalization, but does not appear to be hypervolemic. Allergies Allergy/AdvReac Type Severity Reaction Status Date / Time Sulfa (Sulfonamide Allergy Mild "SULFA Verified 12/29/18 09:44 Antibiotics) DRUGS": UNKNOWN acetaminophen Allergy Unknown ? Verified 12/29/18 09:44 oxycodone Allergy Unknown ? Verified 12/29/18 09:44 Home Medications Home Medications Medication Instructions Recorded Confirmed Type buspirone 15 mg PO TID 01/18/18 12/29/18 History docusate sodium 100 mg PO BID 01/18/18 12/29/18 History donepezil 10 mg PO DAILY 01/18/18 12/29/18 History ergocalciferol (vitamin D2) 50,000 unit PO LEVY 01/18/18 12/29/18 History [Vitamin D2] hydroxyzine HCl 25 mg PO Q8 PRN 01/18/18 12/29/18 History lisinopril [Zestril] 10 mg PO QAM 01/18/18 12/29/18 History loratadine [Loradamed] 10 mg PO QAM 01/18/18 12/29/18 History lorazepam 0.5 mg PO TID 01/18/18 12/29/18 History naproxen sodium [Aleve] 220 mg PO Q12 PRN 01/18/18 12/29/18 History sotalol [Sorine] 120 mg PO BID 01/18/18 12/29/18 History venlafaxine [Effexor XR] 150 mg PO QAM 01/18/18 12/29/18 History memantine [Namenda XR] 28 mg PO QAM 07/24/18 12/29/18 History alum-mag hydroxide-simeth 30 ml PO Q6H PRN 12/26/18 12/29/18 History [Antacid-Simethicone] aspirin 81 mg PO DAILY 12/26/18 12/29/18 History dextromethorphan-guaifenesin 5 ml PO Q4H PRN 12/26/18 12/29/18 History [Tussin DM] lisinopril [Zestril] 2.5 mg PO DAILY 12/26/18 12/29/18 History mineral oil-hydrophil petrolat 1 applic TOPICAL TID PRN 12/26/18 12/29/18 History [Aquaphor] phenylephrine HCl [Sudafed PE] 10 mg PO Q4H PRN 12/26/18 12/29/18 History sennosides-docusate sodium [Senna 1 tab PO DAILY 12/26/18 12/29/18 History Plus] venlafaxine [Effexor XR] 75 mg PO QAM 12/26/18 12/29/18 History amoxicillin-pot clavulanate 1 tab PO BID 12/29/18 12/29/18 History [Augmentin] benzonatate 100 mg PO TID PRN 12/29/18 12/29/18 History Patient History Medical History RAD (reactive airway disease) (Acute) Bronchitis (Acute) Physical deconditioning (Acute) Depression (Acute) A-fib (Inactive) Atrial fibrillation (Inactive) Anxiety Dementia Surgical History No pertinent past surgical history Family History Other Family history non-contributory Social History Preferred Language: French Communication Ability: 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 HEENT: Head is atraumatic, normocephalic. EOM's intact. Facies symmetric. No perioral cyanosis. NECK: No JVD. JVP is just above the level of the clavicle sitting upright. Carotid upstrokes are + 2 bilaterally. CHEST/LUNGS: Scattered wheezes throughout particularly during exhalation. CVS: S1 and S2 are irregularly irregular with an apical rate of 95 bpm with a grade 1-2/6 apical systolic murmur. No obvious diastolic murmurs, gallops, or rubs. PMI is nondisplaced. No lifts, heaves, or thrills. No abdominal aortic or renal bruits. ABDOMINAL EXAM: Bowel sounds are present. EXTREMITIES: No clubbing or cyanosis. +1 Pretibial edema bilaterally. Intact radial pulses bilaterally. NEUROLOGIC EXAM: Patient is awake, alert, and interactive. Pleasant and cooperative. Speech is clear. Telemetry: A-Fib with V-rate of 90 to 100 bpm. EKG's: -- A-Fib with V-rates ranging from 11 to 147 bpm. ECHOCARDIOGRAM: -- Normal LV systolic function. -- No wall motion abnormalities. -- Concentric LVH. -- MR and TR are present. Results & Data Vital Signs (Past 12 Hours) Vital Signs Temp Pulse Pulse Pulse Resp BP BP 01/01/19 11:48 36.4 C L 01/01/19 11:34 95 H 20 177/88 H 01/01/19 10:59 79 18 01/01/19 08:33 119 H 136/104 H 01/01/19 08:00 90 01/01/19 07:10 93 H 197/132 H 01/01/19 06:59 103 H 16 01/01/19 03:10 91 H 18 Pulse Ox 01/01/19 11:48 01/01/19 11:34 93 01/01/19 10:59 96 01/01/19 08:33 01/01/19 08:00 01/01/19 07:10 01/01/19 06:59 96 01/01/19 03:10 93 Laboratory Results Laboratory Results - last 24 hr 01/01/19 01/01/19 01/01/19 05:30 13:54 13:54 Sodium 132 L Potassium 4.1 Chloride 100 Carbon Dioxide 24 Anion Gap 8.0 BUN 34 H Creatinine 0.77 Est Cr Clr Drug Dosing 67.9 Est GFR ( Amer) 85.1 Est GFR (Non-Af Amer) 73.4 BUN/Creatinine Ratio 44.2 H Glucose 138 H Calcium 8.4 L Total Bilirubin 0.7 Direct Bilirubin 0.2 AST 155 H ALT 227 H Alkaline Phosphatase 110 Total Protein 6.4 Albumin 2.3 L Globulin 4.1 H Albumin/Globulin Ratio 0.6 L Tumor Marker AFP Pending Acetaminophen Lyme Disease IgG Ab Lyme Disease IgM Ab Hepatitis A IgM Ab Pending Hep Bs Antigen Pending Hep B Core IgM Ab Pending Hepatitis C Antibody Pending 01/01/19 01/01/19 13:54 13:54 Sodium Potassium Chloride Carbon Dioxide Anion Gap BUN Creatinine Est Cr Clr Drug Dosing Est GFR ( Amer) Est GFR (Non-Af Amer) BUN/Creatinine Ratio Glucose Calcium Total Bilirubin Direct Bilirubin AST ALT Alkaline Phosphatase Total Protein Albumin Globulin Albumin/Globulin Ratio Tumor Marker AFP Acetaminophen < 2 L Lyme Disease IgG Ab Pending Lyme Disease IgM Ab Pending Hepatitis A IgM Ab Hep Bs Antigen Hep B Core IgM Ab Hepatitis C Antibody Medications Administered Active Medications Generic Name Dose Route Start Last Admin Trade Name Freq PRN Reason Stop Dose Admin Al Hydrox/Mg Hydrox/Simethicone 30 ml 12/29/18 16:47 Maalox Max PO 01/28/19 16:46 Q6H PRN Stomach Upset Albuterol 3 ml 12/30/18 15:34 12/31/18 01:50 Duoneb NEB 01/29/19 18:59 3 ml Q4R PRN Administration shortness of breath Albuterol 3 ml 12/31/18 11:00 01/01/19 10:58 Duoneb NEB 01/30/19 10:59 3 ml Q4R NOLAN Administration Apixaban 5 mg 12/30/18 11:35 01/01/19 08:40 Eliquis PO 01/29/19 11:34 5 mg BID NOLAN Administration Aspirin 81 mg 12/30/18 09:00 01/01/19 08:40 Ecotrin Ectab PO 01/29/19 08:59 81 mg DAILY NOLAN Administration Benzonatate 100 mg 12/31/18 09:00 01/01/19 15:08 Tessalon Perle PO 01/30/19 08:59 100 mg TID NOLAN Administration Buspirone HCl 15 mg 12/29/18 21:00 01/01/19 15:08 Buspar PO 01/28/19 20:59 15 mg TID NOLAN Administration Diltiazem HCl 120 mg 01/01/19 14:45 Dilacor Xr PO 01/31/19 14:44 QAM NOLAN Docusate Sodium 100 mg 12/29/18 21:00 01/01/19 08:40 Colace PO 01/28/19 20:59 100 mg BID NOLAN Administration Donepezil HCl 10 mg 12/29/18 16:47 01/01/19 08:40 Aricept PO 01/28/19 16:46 10 mg DAILY NOLAN Administration Ergocalciferol 50,000 units 01/03/19 09:00 Vitamin D2 PO 02/02/19 08:59 Levy@0900 NOLAN Guaifenesin 1,200 mg 12/31/18 09:00 01/01/19 08:40 Mucinex PO 01/30/19 08:59 1,200 mg Q12 NOLAN Administration Guaifenesin/Codeine Phosphate 10 ml 12/31/18 08:50 01/01/19 08:53 Robitussin-Ac Sugar Free PO 01/30/19 08:49 10 ml Q6H PRN Administration Cough Hydralazine HCl 10 mg 01/01/19 07:22 01/01/19 11:57 Apresoline PO 01/29/19 15:29 10 mg QID PRN Administration blood pressure Metronidazole 500 mg in 100 mls @ 100 mls/hr 12/30/18 16:00 01/01/19 10:57 Flagyl IV 01/06/19 15:59 Infused Q8H NOLAN Infusion Cefepime HCl 2,000 mg/ Syringe 20 mls @ 5 mls/min 12/30/18 16:00 01/01/19 08:53 IV 01/06/19 15:59 5 mls/min Q8H NOLAN Administration Methylprednisolone 40 mg/ 0.64 mls @ 1.5 mls/min 12/30/18 21:00 01/01/19 08:39 Syringe IV 01/29/19 20:59 1.5 mls/min BID NOLAN Administration Ioversol 120 ml 12/29/18 11:31 12/29/18 11:32 Optiray 320 125ml IV 01/02/19 11:30 120 ml ONCE PRN Administration Interaction Checking Lisinopril 20 mg 01/01/19 09:00 01/01/19 10:05 Zestril PO 01/31/19 08:59 20 mg QAM NOLAN Administration Lorazepam 0.5 mg 12/29/18 16:47 01/01/19 15:07 Ativan PO 01/28/19 16:46 0.5 mg TID NOLAN Administration Magnesium Hydroxide 30 ml 12/29/18 16:47 Milk Of Magnesia PO 01/28/19 16:46 Q12H PRN Constipation Memantine 10 mg 12/30/18 10:00 01/01/19 08:40 Namenda PO 01/29/19 09:59 10 mg BID NOLAN Administration Metoprolol Tartrate 50 mg 01/01/19 09:00 01/01/19 08:40 Lopressor PO 01/31/19 08:59 50 mg BID NOLAN Administration Miscellaneous Information 1 ea 12/30/18 09:15 Cefepime Consult Active N/A 01/29/19 09:14 UD PRN consult Ondansetron HCl 4 mg 12/29/18 16:47 Zofran IV 01/28/19 16:46 Q6H PRN Nausea Phenol 2 sprays 12/31/18 01:20 12/31/18 19:45 Chloraseptic 1.4% [place] 01/30/19 01:19 2 sprays QID PRN Administration throat pain Polyethylene Glycol 17 gm 12/29/18 16:47 Miralax Powder Packet PO 01/28/19 16:46 DAILY PRN Constipation Senna/Docusate Sodium 1 tab 12/30/18 09:00 01/01/19 08:40 Senokot S PO 01/29/19 08:59 1 tab DAILY NOLAN Administration Sotalol HCl 120 mg 01/01/19 21:00 Betapace PO 01/31/19 20:59 BID NOLAN Venlafaxine HCl 75 mg 12/30/18 09:00 01/01/19 08:40 Effexor Extended Release PO 01/29/19 08:59 75 mg QAM NOLAN Administration Venlafaxine HCl 150 mg 12/30/18 09:00 01/01/19 08:40 Effexor Extended Release PO 01/29/19 08:59 150 mg QAM NOLAN Administration PG Care Time/CCT Total # of Minutes Spent Total Time Spent with Patient: Total time spent is greater than 50% in coord ination of care (as documented) at patient's floor/unit and/or counseling patient: (1) HTN (hypertension) Hypertension type: unspecified Qualified Code(s): I10 - Essential (primary) hypertension
[2019-01-01 15:23] LABS: Hepatitis C IgG 13Yrs+Old_Rflx Neg (Neg)
[2019-01-01 15:32] LABS: Lyme Ab IgG w/WB Rflx Negative (Negative); Lyme Ab IgM w/WB Rflx Negative (Negative)
--- NOTE | 2019-01-01 17:17 | Gastrointestinal Consultation ---
Date of Consultation January 01, 2019 Assessment & Plan (1) Transaminitis: Recommend HIDA scan with CCK to evaluate GB function Recommend supportive medical care, specifically to control HR She will need followup as an outpatient for long-term care of cirrhosis, though no acute needs at this time. Dr. Duarte is covering for the weekend (2) Atrial fibrillation with RVR: History of Present Illness Reason for Consultation: Transaminitis and distended gallbladder Attending Physician: Lucretia Stallworth MD History of Present Illness Denise Tapia was admitted on 12/28 with generalized illness, bronchitis. She was also noted to have A-fib with RVR and has been seen by Cardiology in this regard. She has been receiving medications to control her heart rate as well as Eliquis for anti-coagulation. During the course of her hospitalization, she was noted to have elevated transaminases. She underwent a CT abd/pelvis and was noted to have a distended gallbladder with some wall thickening. Her transaminases have decreased slightly and she did undergo a RUQ US, which again showed GB distention and wall thickening, however, she was also noted to have a cirrhotic appearing liver. 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 At the time I spoke with the patient, she was unable to provide any historical information. Specifically she cannot recall what brought her to the hospital, or if she has ever had any liver abnormalities noted previously. As per the EHR, she has never been noted to have elevated liver enzymes prior to this admission. She does not complain of any abdominal pain, fevers, chills, nausea or vomiting, and does not have any complaints at present. Allergies Allergy/AdvReac Type Severity Reaction Status Date / Time Sulfa (Sulfonamide Allergy Mild "SULFA Verified 12/29/18 09:44 Antibiotics) DRUGS": UNKNOWN acetaminophen Allergy Unknown ? Verified 12/29/18 09:44 oxycodone Allergy Unknown ? Verified 12/29/18 09:44 Home Medications Home Medications Medication Instructions Recorded Confirmed Type buspirone 15 mg PO TID 01/18/18 12/29/18 History docusate sodium 100 mg PO BID 01/18/18 12/29/18 History donepezil 10 mg PO DAILY 01/18/18 12/29/18 History ergocalciferol (vitamin D2) 50,000 unit PO LEVY 01/18/18 12/29/18 History [Vitamin D2] hydroxyzine HCl 25 mg PO Q8 PRN 01/18/18 12/29/18 History lisinopril [Zestril] 10 mg PO QAM 01/18/18 12/29/18 History loratadine [Loradamed] 10 mg PO QAM 01/18/18 12/29/18 History lorazepam 0.5 mg PO TID 01/18/18 12/29/18 History naproxen sodium [Aleve] 220 mg PO Q12 PRN 01/18/18 12/29/18 History sotalol [Sorine] 120 mg PO BID 01/18/18 12/29/18 History venlafaxine [Effexor XR] 150 mg PO QAM 01/18/18 12/29/18 History memantine [Namenda XR] 28 mg PO QAM 07/24/18 12/29/18 History alum-mag hydroxide-simeth 30 ml PO Q6H PRN 12/26/18 12/29/18 History [Antacid-Simethicone] aspirin 81 mg PO DAILY 12/26/18 12/29/18 History dextromethorphan-guaifenesin 5 ml PO Q4H PRN 12/26/18 12/29/18 History [Tussin DM] lisinopril [Zestril] 2.5 mg PO DAILY 12/26/18 12/29/18 History mineral oil-hydrophil petrolat 1 applic TOPICAL TID PRN 12/26/18 12/29/18 History [Aquaphor] phenylephrine HCl [Sudafed PE] 10 mg PO Q4H PRN 12/26/18 12/29/18 History sennosides-docusate sodium [Senna 1 tab PO DAILY 12/26/18 12/29/18 History Plus] venlafaxine [Effexor XR] 75 mg PO QAM 12/26/18 12/29/18 History amoxicillin-pot clavulanate 1 tab PO BID 12/29/18 12/29/18 History [Augmentin] benzonatate 100 mg PO TID PRN 12/29/18 12/29/18 History Patient History Medical History RAD (reactive airway disease) (Acute) Bronchitis (Acute) Physical deconditioning (Acute) Depression (Acute) A-fib (Inactive) Atrial fibrillation (Inactive) Anxiety Dementia Surgical History No pertinent past surgical history Family History Other Family history non-contributory Social History Preferred Language: Egyptian 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 marital status: Current Living Situation: Personal Care Facility Current Living Situation Comment: [facility]ustodial current occupational status: retired Feels Safe at Home: Yes Smoking Status: Never smoker Review of Systems Review of Systems: Unobtainable due to cognitive status Physical Exam Constitutional: + ill appearing and + frail appearing Chronically Eyes: + anicteric sclerae ENMT: external ear and nose normal, oropharynx normal Neck: trachea midline, no thyromegaly Respiratory: normal respiratory effort, lungs clear to auscultation Cardiovascular: RRR, no murmur, no edema Gastrointestinal (Abdomen): normal bowel sounds, soft, nontender, no hepatosplenomegaly Skin: no rashes, warm and dry Psychiatric: Orientation: cooperative Results & Data Vital Signs (Past 12 Hours) Vital Signs Temp Pulse Pulse Resp BP BP Pulse Ox 01/01/19 16:00 86 01/01/19 15:36 36.6 C 97 H 18 175/127 H 99 01/01/19 15:32 90 18 97 01/01/19 11:48 36.4 C L 01/01/19 11:34 95 H 20 177/88 H 93 01/01/19 10:59 79 18 96 01/01/19 08:33 119 H 136/104 H 01/01/19 08:00 90 01/01/19 07:10 93 H 197/132 H 01/01/19 06:59 103 H 16 96 PG Care Time/CCT Total # of Minutes Spent Total Time Spent with Patient: Total time spent is greater than 50% in coordination of care (as documented) at patient's floor/unit and/or counseling patient:
--- NOTE | 2019-01-01 18:13 | Magnetic Resonance Report ---
MR MRCP CLINICAL HISTORY: Abnormal gallbladder on prior CT scan. Elevated LFTs, abdominal pain, nausea. COMPARISON STUDY: CT scan of the abdomen and pelvis dated 12/29/2018 FINDINGS: A breath-hold MRCP was performed. MIP images were acquired. There are subcentimeter renal cysts. There is trace fluid within Morison's pouch. There is trace perihepatic fluid. No gallstones are visualized. There is no significant gallbladder wall thickening. There is no evidence for intra or extrahepatic biliary ductal dilatation. The common bile duct measur es 3 mm. There is no significant pancreatic ductal dilatation. The examination is mildly limited from a technical standpoint secondary to the patient's inability to perform optimal breath holds. IMPRESSION: 1. Mildly limited study from a technical standpoint 2. No gallstones identified 3. No ductal calculi identified 4. No evidence of ductal dilatation. Electronically signed by: Pancho Tineo M.D. 01/01/2019 6:12 PM
[2019-01-01 20:13] LABS: Hepatitis B Surface Antigen Neg (Neg)
[2019-01-01] MEDS ORDERED: SOTALOL HCL 80 MG TAB PO SCH (21:00)
[2019-01-02] MEDS: ALBUT/IPRATROP 3MG/0.5MG NEB 3 ML VIAL NEB SCH ×6 (02:27→23:01)
[2019-01-02] MEDS: HydrALAZINE 10 MG TAB PO PRN (04:17)
[2019-01-02 07:29] LABS: Albumin Level 2.4 gm/dl (3.4-5.0); BUN Creatinine Ratio 45.3 (10-20); Calcium 8.5 mg/dl (8.5-10.1); Est GFR (African American) 71.4; Est GFR (Non-African American) 61.6; Potassium 4.5 mmol/L (3.5-5.1)
[2019-01-02 07:33] LABS: Albumin Globulin Ratio 0.6 (0.9-2); Bilirubin Direct 0.2 mg/dl (0-0.2); Bilirubin,Total 0.6 mg/dl (0.2-1); Globulin 4.3 gm/dl (2.5-4.0); Total Protein 6.7 gm/dl (6.4-8.2)
[2019-01-02 08:10] LABS: Basophils # (auto) 0.01 K/uL (0-0.2); Basophils % (auto) 0.1 %; Hematocrit (blood only) 40.6 % (37-47); Hemoglobin 12.9 g/dL (12.0-16.0); Immature Granulocytes # (auto) 0.23 K/uL (0.00-0.02); Immature Granulocytes % (auto) 1.2 %; Lymphocytes # (auto) 1.31 K/uL (1.2-3.4); Lymphocytes % (auto) 6.6 %; Mean Corpuscular Volume 85.1 fL (80-100); Mean Platelet Volume 10.3 fL (7.4-10.4); Monocytes # (auto) 1.24 K/uL (0.11-0.59); Monocytes % (auto) 6.2 %; Neutrophils # (auto) 17.08 K/uL (1.4-6.5); Neutrophils % (auto) 85.9 %; Nucleated RBC # (auto) 0.05 K/uL (0-0); Nucleated RBC % (auto) 0.3 %; Platelet Count 244 K/uL (130-400); RDW Coefficient of Variation 15.5 % (11.5-14.5); RDW Standard Deviation 47.5 fL (36.4-46.3); Red Blood Count 4.77 M/uL (4.2-5.4); White Blood Count 19.87 K/uL (4.8-10.8)
[2019-01-02] MEDS: LISINOPRIL 20 MG TAB PO SCH (08:11)
[2019-01-02] MEDS: DONEPEZIL HCL 10 MG TAB PO SCH (08:11)
[2019-01-02] MEDS: METOPROLOL TARTRATE 25 MG TAB PO SCH ×2 (08:11→20:21)
[2019-01-02] MEDS: guaiFENesin 600 MG TABCR PO SCH ×2 (08:11→20:21)
[2019-01-02] MEDS: DOCUSATE SODIUM 100 MG CAP PO SCH ×2 (08:11→20:21)
[2019-01-02] MEDS: SOTALOL HCL 80 MG TAB PO SCH ×2 (08:12→20:20)
[2019-01-02] MEDS: ASPIRIN 81 MG ECTAB PO SCH (08:12)
[2019-01-02] MEDS: MEMANTINE HCL 10 MG TAB PO SCH ×2 (08:12→20:21)
[2019-01-02] MEDS: BENZONATATE 100 MG CAPSULE PO SCH ×3 (08:12→20:21)
[2019-01-02] MEDS: VENLAFAXINE HCL XR 75 MG CAPXR PO SCH (08:12)
[2019-01-02] MEDS: BusPIRone 15 MG TAB PO SCH ×3 (08:12→20:21)
[2019-01-02] MEDS: LORazepam 0.5 MG TAB PO SCH ×3 (08:12→20:20)
[2019-01-02] MEDS: methylPREDNISolone 40 MG in SYRINGE 0 ML IV SCH (08:12)
[2019-01-02] MEDS: APIXABAN 5 MG TABLET PO SCH ×2 (08:12→20:21)
[2019-01-02] MEDS: DOCUSATE SODIUM/SENNA 50/8.6MG TAB PO SCH (08:12)
[2019-01-02] MEDS: VENLAFAXINE HCL XR 150 MG CAPXR PO SCH (08:12)
[2019-01-02] MEDS: metroNIDAZOLE 500 MG/100 ML BAG IV SCH (08:12)
[2019-01-02 08:13] LABS: Mean Corpuscular Hgb Conc 31.8 g/dL (32-36)
[2019-01-02] MEDS: GUAIFENESIN/CODEINE 100MG/10MG 5ML UDC PO SCH ×5 (08:17→23:34)
[2019-01-02] MEDS: CEFEPIME 2,000 MG in SYRINGE 7.5 ML IV SCH (08:17)
--- NOTE | 2019-01-02 09:33 | Gastroenterology Progress Note ---
Date of Service January 02, 2019 Supervising Physician Co-Signing Physician Notes 78 yo fm with a history of afib with rvr was on eliquis, admitted a few days ago with bronchitis, GI consulted on 01/01/19 for transaminitis and abd mary lou showing distended gallbladder however without stones, cbd dilation or tb elevation. Also noted to be cirrhotic on imaging. She remains clinically stable - no complaints of fevers, chills, or abdominal pain. Differential - acalculous cholecsytitis versus microlithiasis. HIDA scan recommended by Dr. Layton yesterday - would pursue. Trend lft's, wbc count. She is on augmentin. MELD low. Pending hida scan, will determine any further need for GI intervention. Subjective No acute complaints Alert and oriented this morning No fevers, chills, no abdominal pain. Review of Systems Review of Systems: All systems reviewed & are unremarkable except as noted in HPI & below Physical Exam Physical Exam: Well nourished female in nad Eyes: PERRL, conjunctivae normal, anicteric sclerae Gastrointestinal (Abdomen): normal bowel sounds, soft, nontender, no hepatosplenomegaly Skin: no rashes, warm and dry Neurologic: CN's II-XI intact bilaterally Results & Data Vital Signs (Past 12 Hours) Vital Signs Temp Pulse Pulse Resp BP Pulse Ox 01/02/19 07:30 36.4 C L 68 20 167/87 H 96 01/02/19 07:05 63 16 96 01/02/19 03:38 36.4 C L 73 18 177/119 H 93 01/01/19 23:31 36.0 C L 81 18 169/107 H 96 01/01/19 23:17 89 16 94 01/01/19 23:03 72 Labs reviewed Significant for slight elevation in wbc count, stable h/h/plateltes Slightly low na at 133 XOB044/ALT 207 downtrending Imaging reviewed:cirrhotic, distended gallbladder without gallstones
[2019-01-02] MEDS ORDERED: PIPERACILL/TAZOBAC CONSULT ACTIVE PRN (13:36)
[2019-01-02] MEDS ORDERED: VANCOMYCIN CONSULT ACTIVE PRN (13:36)
--- NOTE | 2019-01-02 13:40 | Hospitalist Progress Note ---
Date of Service January 02, 2019 Assessment & Plan (1) Hypoxia: Patient continues to be on 3 L of oxygen. She did not require oxygen at home. It is caused by hospital-acquired pneumonia. Patient developed "red man" syndrome. Vancomycin discontinued and Zosyn and she is started on cefepime and Flagyl to cover for hospital-acquired and possibly aspiration pneumonia. Noted leukocytosis today of 19,000. Even though some of the leukocyte elevation can be contributed to IV steroids it is difficult to explain the amount of 19,000 from 13.6 which patient had when she was on vancomycin and Zosyn. Cefepime and metronidazole discontinued and patient switched back to Zosyn since she respo nded better. IV Solu-Medrol stopped and patient is now only on prednisone 20 mg daily for 5 days plan to do a swallow study. Continue breathing treatments every 4 hours as needed. Continue supplemental oxygen oxygen while patient in recovery phase. (2) Hypertensive urgency: Appreciate cardiology recommendations. Pressure is now better controlled with the following regimen: Added diltiazem CD 120 mg daily for both rate control and to lower BP. Continue Sotalol 120 mg b.i.d. -- we can titrate this to 160 mg b.i.d. after she has been anticoagulated for at least 3 and half weeks. Continue Lopressor 50 mg b.i.d.. Continue Eliquis 5 mg b.i.d.. Continue aspirin 81 mg daily. Continue lisinopril 12.5 mg daily. Continue monitoring blood pressure. Low-sodium diet. In regard of cardioversion per cardiology recommendations her ventricular response rate has improved significantly, and she is asymptomatic with her atrial fibrillation history -- but her ventricular response rate has improved as she has had her underlying illness treated and with adjustments in medications. Unfortunately, we do not know when this episode of atrial fibrillation started and she has only been anticoagulated for the past 3 days. Therefore we need to have her fully anticoagulated for a minimum of 3-1/2 weeks before considering active attempts at getting her back to a normal sinus rhythm. (3) Cholecystitis: Appreciate gastroenterology recommendations. She remains clinically stable - no complaints of fevers, chills, or abdominal pain. Differential - acalculous cholecystitis versus microlithiasis. HIDA scan recommended by Dr. Layton yesterday -placed order. To midnight for HIDA scan except for meds. Trend lft's, wbc count. Patient is on Zosyn MELD low. (4) Abnormal LFTs: Trending down, continue monitoring AST and ALT. Will check hepatic panel. (5) Atrial fibrillation with RVR: Paroxysmal A. fib's. Continue sotalol. Continue telemetry. See above cardiology recommendations. Continue recommended regimen. Continue Eliquis. (6) DVT prophylaxis: Eliquis Subjective Patient seen and examined at the bedside. Patient leukocyte count is going up even though she appears to have clinical improvements. Pt is afebrile. Could be related to IV solumedrol that pt was placed for COPD exacerbation as well. Pt was doing better on Vancomycin and Zosyn but had to be stopped since she developed red man sy. P.o. intake is improving. Patient blood pressure and heart rate are under better control. But white blood cell count is now 19,000. Blood cultures so far negative. Patient denies fever chills, chest pain, shortness of breath, frequency, urgency. She continues to complain of cough and wheezing. Review of Systems Review of Systems: All systems reviewed & are unremarkable except as noted in HPI & below Physical Exam Constitutional: WD/WN, vitals as above + obese Eyes: PERRL, conjunctivae normal, anicteric sclerae ENMT: external ear and nose normal, oropharynx normal Neck: trachea midline, no thyromegaly Respiratory: normal respiratory effort Auscultation: + crackles and + wheezes (Crackles and wheezes bilaterally. Worse on the right) Cardiovascular: Rate/Rhythm: + irregularly irregular Heart Sounds: normal S1 and normal S2 Chest (Breasts): normal inspection/palpation of breasts Gastrointestinal (Abdomen): normal bowel sounds, soft, nontender, no hepatosplenomegaly Musculoskeletal: no cyanosis or clubbing, extremities motor strength 5/5 Skin: no rashes, warm and dry Neurologic: patellar DTR's 2+ bilat, sensation intact Psychiatric: A+Ox3, euthymic affect Lymphatic: no cervical or axillary lymphadenopathy Results & Data Vital Signs (Past 12 Hours) Vital Signs Temp Pulse Pulse Pulse Resp BP Pulse Ox 01/02/19 11:01 36.7 C 69 20 158/99 H 99 01/02/19 10:48 77 18 98 01/02/19 08:00 63 10/19/19 07:30 36.4 C L 68 20 167/87 H 96 01/02/19 07:05 63 16 96 01/02/19 03:38 36.4 C L 73 18 177/119 H 93 PG Care Time/CCT Total # of Minutes Spent Total Time Spent with Patient: Total time spent is greater than 50% in coordination of care (as documented) at patient's floor/unit and/or counseling patient:
[2019-01-02] MEDS ORDERED: PIPERACILLIN/TAZOBACTAM 3.375 GM in DEXTROSE 5% 100 ML IV SCH (13:45)
[2019-01-02] MEDS ORDERED: PIPERACILLIN/TAZOBACTAM 3.375 GM in DEXTROSE 5% 100 ML IV ONE (14:45)
[2019-01-02] MEDS: PIPERACILLIN/TAZOBACTAM 3.375 GM in DEXTROSE 5% 100 ML IV SCH (20:20)
[2019-01-03] MEDS: HydrALAZINE 10 MG TAB PO PRN (00:06)
[2019-01-03] MEDS: ALBUT/IPRATROP 3MG/0.5MG NEB 3 ML VIAL NEB SCH ×6 (03:10→23:13)
[2019-01-03] MEDS ORDERED: METOPROLOL TARTRATE 1 MG/ML VIAL IV STA (03:29)
[2019-01-03] MEDS ORDERED: METOPROLOL TARTRATE 1 MG/ML VIAL IV ONE (03:43)
[2019-01-03] MEDS: PIPERACILLIN/TAZOBACTAM 3.375 GM in DEXTROSE 5% 100 ML IV SCH ×3 (03:46→23:24)
[2019-01-03] MEDS: GUAIFENESIN/CODEINE 100MG/10MG 5ML UDC PO SCH ×5 (04:23→21:29)
[2019-01-03 06:12] LABS: Basophils # (auto) 0.01 K/uL (0-0.2); Eosinophils # (auto) 0.01 K/uL (0-0.5); Hematocrit (blood only) 39.9 % (37-47); Hemoglobin 12.7 g/dL (12.0-16.0); Immature Granulocytes # (auto) 0.33 K/uL (0.00-0.02); Immature Granulocytes % (auto) 1.6 %; Lymphocytes # (auto) 1.65 K/uL (1.2-3.4); Mean Corpuscular Hemoglobin 27.2 pg (25-34); Mean Corpuscular Hgb Conc 31.8 g/dL (32-36); Mean Corpuscular Volume 85.4 fL (80-100); Mean Platelet Volume 10.1 fL (7.4-10.4); Monocytes # (auto) 2.05 K/uL (0.11-0.59); Monocytes % (auto) 9.9 %; Neutrophils # (auto) 16.59 K/uL (1.4-6.5); Neutrophils % (auto) 80.5 %; Platelet Count 215 K/uL (130-400); RDW Coefficient of Variation 15.5 % (11.5-14.5); RDW Standard Deviation 47.5 fL (36.4-46.3); Red Blood Count 4.67 M/uL (4.2-5.4); White Blood Count 20.64 K/uL (4.8-10.8)
[2019-01-03 06:55] LABS: Albumin Level 2.1 gm/dl (3.4-5.0); BUN Creatinine Ratio 42.8 (10-20); Bilirubin Direct 0.2 mg/dl (0-0.2); Creatinine Clr Calc Pharmacy 54.2 ml/min; Est GFR (African American) 63.6; Est GFR (Non-African American) 54.9; Potassium 4.1 mmol/L (3.5-5.1)
[2019-01-03 07:00] LABS: Albumin Globulin Ratio 0.5 (0.9-2); Bilirubin,Total 0.4 mg/dl (0.2-1); Globulin 3.9 gm/dl (2.5-4.0)
[2019-01-03] MEDS: VENLAFAXINE HCL XR 75 MG CAPXR PO SCH (07:41)
[2019-01-03] MEDS: METOPROLOL TARTRATE 25 MG TAB PO SCH ×2 (07:41→21:26)
[2019-01-03] MEDS: guaiFENesin 600 MG TABCR PO SCH ×2 (07:41→21:30)
[2019-01-03] MEDS: VENLAFAXINE HCL XR 150 MG CAPXR PO SCH (07:41)
[2019-01-03] MEDS: DONEPEZIL HCL 10 MG TAB PO SCH (07:41)
[2019-01-03] MEDS: LISINOPRIL 20 MG TAB PO SCH (07:42)
[2019-01-03] MEDS: BusPIRone 15 MG TAB PO SCH ×3 (07:42→21:30)
[2019-01-03] MEDS: ASPIRIN 81 MG ECTAB PO SCH (07:42)
[2019-01-03] MEDS: APIXABAN 5 MG TABLET PO SCH ×2 (07:43→21:30)
[2019-01-03] MEDS: MEMANTINE HCL 10 MG TAB PO SCH ×2 (07:43→21:30)
[2019-01-03] MEDS: SOTALOL HCL 80 MG TAB PO SCH ×2 (07:46→21:30)
[2019-01-03] MEDS: BENZONATATE 100 MG CAPSULE PO SCH ×3 (07:59→21:30)
[2019-01-03] MEDS: DOCUSATE SODIUM 100 MG CAP PO SCH ×2 (07:59→21:30)
[2019-01-03] MEDS: DOCUSATE SODIUM/SENNA 50/8.6MG TAB PO SCH (07:59)
[2019-01-03] MEDS ORDERED: DOXYCYCLINE HYCLATE 100 MG in DEXTROSE 5% 100 ML IV SCH (08:00)
[2019-01-03] MEDS: LORazepam 0.5 MG TAB PO SCH ×3 (08:09→21:43)
[2019-01-03] MEDS: DOXYCYCLINE HYCLATE 100 MG in DEXTROSE 5% 100 ML IV SCH ×2 (08:09→21:33)
[2019-01-03] MEDS ORDERED: ERGOCALCIFEROL 50,000 UNITS CAP PO SCH (09:00)
[2019-01-03] MEDS ORDERED: predniSONE 20 MG TAB PO SCH (09:00)
--- NOTE | 2019-01-03 09:03 | Hospitalist Progress Note ---
Date of Service January 03, 2019 Assessment & Plan (1) Hypoxia: Patient continues to be on 3 L of oxygen. She did not require oxygen at home. It is caused by hospital-acquired pneumonia. Patient developed "red man" syndrome. Vancomycin discontinued and Zosyn and she is started on cefepime and Flagyl to cover for hospital-acquired and possibly aspiration pneumonia. Noted leukocytosis today of 19,000. Even though some of the leukocyte elevation can be contributed to IV steroids it is difficult to explain the amount of 19,000 from 13.6 which patient had when she was on vancomycin and Zosyn. Cefepime and metronidazole discontinued and patient switched back to Zosyn since she respo nded better. IV Solu-Medrol stopped and patient is now only on prednisone 20 mg daily for 5 days plan to do a swallow study. Continue breathing treatments every 4 hours as needed. Continue supplemental oxygen oxygen while patient in recovery phase. (2) Hypertensive urgency: Appreciate cardiology recommendations. Pressure is now better controlled with the following regimen: Added diltiazem CD 120 mg daily for both rate control and to lower BP. Continue Sotalol 120 mg b.i.d. -- we can titrate this to 160 mg b.i.d. after she has been anticoagulated for at least 3 and half weeks. Continue Lopressor 50 mg b.i.d.. Continue Eliquis 5 mg b.i.d.. Continue aspirin 81 mg daily. Continue lisinopril 12.5 mg daily. Continue monitoring blood pressure. Low-sodium diet. In regard of cardioversion per cardiology recommendations her ventricular response rate has improved significantly, and she is asymptomatic with her atrial fibrillation history -- but her ventricular response rate has improved as she has had her underlying illness treated and with adjustments in medications. Unfortunately, we do not know when this episode of atrial fibrillation started and she has only been anticoagulated for the past 3 days. Therefore we need to have her fully anticoagulated for a minimum of 3-1/2 weeks before considering active attempts at getting her back to a normal sinus rhythm. (3) Cholecystitis: Appreciate gastroenterology recommendations. She remains clinically stable - no complaints of fevers, chills, or abdominal pain. Differential - acalculous cholecystitis versus microlithiasis. HIDA scan negative follow-up in the gastroenterology clinic after discharge Trend lft's, wbc count. Patient is on Zosyn MELD low. (4) Abnormal LFTs: Trending down slowly, continue monitoring AST and ALT. (5) Atrial fibrillation with RVR: Paroxysmal A. fib's. Continue sotalol. Continue telemetry. See above cardiology recommendations. Continue recommended regimen. Continue Eliquis. (6) DVT prophylaxis: Eliquis (7) CHF (congestive heart failure): Elevated BNP. Restrict p.o. fairly fluid to 1200 cc Strict in and out Daily weight We will repeat chest x-rays to determine status of pneumonia and CHF Patient would possibly need to start diuretic. Trend down BNP Present on Admission?: Yes Subjective Patient seen and examined at the bedside. Patient leukocyte count continues to go up and this morning is 20.64. She was switched yesterday to Zosyn because she was doing better. HIDA scan was done this morning and it was negative. Gastroenterology recommended outpatient follow-up. Steroids are discontinued. Patient clinically looks better even though her white blood cell count is elevated. Patient blood pressure and heart rate are under better control. Blood cultures so far negative. Patient denies fever chills, chest pain, shortness of breath, frequency, urgency. Liver enzymes are trending down nicely. Patient has elevated BNP of 2091 but does not appear in florid exacerbation of CHF. She continues to complain of cough and wheezing. Review of Systems Review of Systems: All systems reviewed & are unremarkable except as noted in HPI & below Physical Exam Constitutional: WD/WN, vitals as above + obese Eyes: PERRL, conjunctivae normal, anicteric sclerae ENMT: external ear and nose normal, oropharynx normal Neck: trachea midline, no thyromegaly Respiratory: normal respiratory effort Auscultation: + crackles and + wheezes (Crackles and wheezes bilaterally. Worse on the right) Cardiovascular: Rate/Rhythm: + irregularly irregular Heart Sounds: normal S1 and normal S2 Chest (Breasts): normal inspection/palpation of breasts Gastrointestinal (Abdomen): normal bowel sounds, soft, nontender, no hepatosplenomegaly Musculoskeletal: no cyanosis or clubbing, extremities motor strength 5/5 Skin: no rashes, warm and dry Neurologic: patellar DTR's 2+ bilat, sensation intact Psychiatric: A+Ox3, euthymic affect Lymphatic: no cervical or axillary lymphadenopathy Results & Data Vital Signs (Past 12 Hours) Vital Signs Temp Pulse Resp BP BP Pulse Ox 01/03/19 07:18 36.4 C L 87 22 144/118 H 100 01/03/19 07:14 74 18 95 01/03/19 04:37 147/94 H 01/03/19 03:46 180/107 H 01/03/19 03:07 36.5 C 81 20 180/107 H 97 01/03/19 01:35 167/109 H 01/02/19 23:38 36.5 C 85 22 179/112 H 93 PG Care Time/CCT Total # of Minutes Spent Total Time Spent with Patient: Total time spent is greater than 50% in coordi nation of care (as documented) at patient's floor/unit and/or counseling patient:
--- NOTE | 2019-01-03 09:06 | Gastroenterology Progress Note ---
Date of Service January 03, 2019 Supervising Physician Co-Signing Physician Notes 78 yo fm with bronchitis on abx, GI consulted on Friday (Dr. Layton) for transaminitis, that is slightly improving. Clinicallly appears stable. PE - alert and oriented, abd - soft nt nd +bs, Neuro - alert and oriented this morning Await hida scan results. Subjective No acute complaints Slight cough this morning Review of Systems Review of Systems: All systems reviewed & are unremarkable except as noted in HPI & below Physical Exam Physical Exam: Lying in bed in no acute distress Eyes: PERRL, conjunctivae normal, anicteric sclerae Gastrointestinal (Abdomen): normal bowel sounds, soft, nontender, no hepatosplenomegaly Neurologic: CN's II-XI intact bilaterally Results & Data Vital Signs (Past 12 Hours) Vital Signs Temp Pulse Resp BP BP Pulse Ox 01/03/19 07:18 36.4 C L 87 22 144/118 H 100 01/03/19 07:14 74 18 95 01/03/19 04:37 147/94 H 01/03/19 03:46 180/107 H 01/03/19 03:07 36.5 C 81 20 180/107 H 97 01/03/19 01:35 167/109 H 01/02/19 23:38 36.5 C 85 22 179/112 H 93 Labs reviewed Slight increase in WBC count LFt's downtrendeing BNP 2091
--- NOTE | 2019-01-03 11:06 | Nuclear Medicine Report ---
NUCLEAR MEDICINE HEPATOBILIARY SCAN HISTORY: distended gallbladder COMPARISON: None. TECHNIQUE: Immediately following the intravenous administration of 5.4 mCi Tc-99m Choletec, dynamic a nterior abdominal imaging was performed. FINDINGS: Uniform hepatic tracer accumulation is shown. Prompt intrahepatic biliary excretion is seen. The gall bladder, common bile duct, and small bowel are all visualized by 30 minutes. This appearance represen ts the normal sequence of biliary excretion. IMPRESSION: 1. No evidence for cystic duct obstruction. Electronically signed by: Abdiaziz Barraza M.D. 01/03/2019 11:04 AM
[2019-01-03] MEDS ORDERED: SODIUM CHLOR 7% 4 ML NEB NEB PRN (16:19)
--- NOTE | 2019-01-03 17:19 | XRay Report ---
XR chest 1V portable HISTORY: multilobar PNA, possibly pulmonary edema COMPARISON: Chest 12/29/2018. FINDINGS: No pneumothorax. The heart remains mildly enlarged. There is right greater than left inters titial thickening which has slightly improved. No new focal lung consolidations. No pleural effusions . IMPRESSION: Improved aeration within the lungs which could represent asymmetric congestive change or an atypical pneumonitis. Electronically signed by: Abdiaziz Barraza M.D. 01/03/2019 5:17 PM
[2019-01-04] MEDS: HydrALAZINE 10 MG TAB PO PRN ×2 (00:01→08:11)
[2019-01-04] MEDS: GUAIFENESIN/CODEINE 100MG/10MG 5ML UDC PO SCH ×7 (00:03→23:51)
[2019-01-04] MEDS ORDERED: COUGH DROP (SUGAR FREE) LOZ 24 LOZ/1 BOX BUCCAL ONE (01:02)
[2019-01-04] MEDS: ALBUT/IPRATROP 3MG/0.5MG NEB 3 ML VIAL NEB SCH ×6 (03:37→23:55)
[2019-01-04] MEDS: PIPERACILLIN/TAZOBACTAM 3.375 GM in DEXTROSE 5% 100 ML IV SCH ×3 (04:51→21:27)
[2019-01-04 07:51] LABS: Basophils # (auto) 0.03 K/uL (0-0.2); Basophils % (auto) 0.2 %; Eosinophils # (auto) 0.11 K/uL (0-0.5); Eosinophils % (auto) 0.6 %; Hematocrit (blood only) 41.6 % (37-47); Hemoglobin 13.4 g/dL (12.0-16.0); Immature Granulocytes # (auto) 0.64 K/uL (0.00-0.02); Immature Granulocytes % (auto) 3.2 %; Lymphocytes # (auto) 2.85 K/uL (1.2-3.4); Lymphocytes % (auto) 14.3 %; Mean Corpuscular Hgb Conc 32.2 g/dL (32-36); Mean Corpuscular Volume 83.9 fL (80-100); Monocytes # (auto) 1.86 K/uL (0.11-0.59); Monocytes % (auto) 9.3 %; Neutrophils # (auto) 14.42 K/uL (1.4-6.5); Neutrophils % (auto) 72.4 %; Nucleated RBC # (auto) 0.07 K/uL (0-0); Nucleated RBC % (auto) 0.4 %; Platelet Count 247 K/uL (130-400); RDW Coefficient of Variation 15.3 % (11.5-14.5); RDW Standard Deviation 46.6 fL (36.4-46.3); Red Blood Count 4.96 M/uL (4.2-5.4); White Blood Count 19.91 K/uL (4.8-10.8)
[2019-01-04] MEDS: MEMANTINE HCL 10 MG TAB PO SCH ×2 (08:10→20:29)
[2019-01-04] MEDS: APIXABAN 5 MG TABLET PO SCH ×2 (08:10→20:29)
[2019-01-04] MEDS: BusPIRone 15 MG TAB PO SCH ×3 (08:11→20:29)
[2019-01-04] MEDS: SOTALOL HCL 80 MG TAB PO SCH ×2 (08:11→20:29)
[2019-01-04] MEDS: BENZONATATE 100 MG CAPSULE PO SCH ×3 (08:11→20:26)
[2019-01-04] MEDS: ASPIRIN 81 MG ECTAB PO SCH (08:12)
[2019-01-04] MEDS: DONEPEZIL HCL 10 MG TAB PO SCH (08:12)
[2019-01-04] MEDS: DOCUSATE SODIUM/SENNA 50/8.6MG TAB PO SCH (08:12)
[2019-01-04] MEDS: LISINOPRIL 20 MG TAB PO SCH (08:12)
[2019-01-04] MEDS: DOCUSATE SODIUM 100 MG CAP PO SCH ×2 (08:12→20:29)
[2019-01-04] MEDS: guaiFENesin 600 MG TABCR PO SCH ×2 (08:12→20:29)
[2019-01-04] MEDS: METOPROLOL TARTRATE 25 MG TAB PO SCH ×2 (08:13→20:29)
[2019-01-04] MEDS: VENLAFAXINE HCL XR 150 MG CAPXR PO SCH (08:13)
[2019-01-04] MEDS: VENLAFAXINE HCL XR 75 MG CAPXR PO SCH (08:13)
[2019-01-04 08:21] LABS: Albumin Level 2.4 gm/dl (3.4-5.0); BUN Creatinine Ratio 46.5 (10-20); Calcium 8.3 mg/dl (8.5-10.1); Creatinine Clr Calc Pharmacy 63.4 ml/min; Est GFR (African American) 77.7; Est GFR (Non-African American) 67.1; Potassium 3.8 mmol/L (3.5-5.1)
[2019-01-04 08:24] LABS: Albumin Globulin Ratio 0.6 (0.9-2); Bilirubin,Total 0.5 mg/dl (0.2-1); Globulin 4.2 gm/dl (2.5-4.0); Total Protein 6.6 gm/dl (6.4-8.2)
[2019-01-04] MEDS: DOXYCYCLINE HYCLATE 100 MG in DEXTROSE 5% 100 ML IV SCH ×2 (08:27→19:23)
[2019-01-04] MEDS: LORazepam 0.5 MG TAB PO SCH ×3 (08:27→20:28)
--- NOTE | 2019-01-04 11:05 | Hospitalist Progress Note ---
Date of Service January 04, 2019 Assessment & Plan (1) Hypoxia: Slowly improving. WBC trending down. Patient continues to be on 3 L of oxygen. She did not require oxygen at home. It is caused by hospital-acquired pneumonia. Patient developed "red man" syndrome. Vancomycin discontinued and Zosyn and she is started on cefepime and Flagyl to cover for hospital-acquired and possibly aspiration pneumonia. Noted leukocytosis today of 19,000-->20,000-->19,000. Even though some of the leukocyte elevation can be contributed to IV steroids it is difficult to explain the amount of 19,000 from 13.6 which patient had when she was on vancomycin and Zosyn. Cefepime and metronidazole discontinued and patient switched back to Zosyn since she responded better and added doxycycline 100 mg twice daily. IV Solu-Medrol discontinued. Continue breathing treatments every 4 hours as needed. Continue supplemental oxygen oxygen while patient in recovery phase. (2) Hypertensive urgency: Appreciate cardiology recommendations. Pressure is now better controlled with the following regimen: Added diltiazem CD 120 mg daily for both rate control and to lower BP. Continue Sotalol 120 mg b.i.d. -- we can titrate this to 160 mg b.i.d. after she has been anticoagulated for at least 3 and half weeks. Continue Lopressor 50 mg b.i.d.. Continue Eliquis 5 mg b.i.d.. Continue aspirin 81 mg daily. Continue lisinopril 12.5 mg daily. Continue monitoring blood pressure. Low-sodium diet. In regard of cardioversion per cardiology recommendations her ventricular response rate has improved significantly, and she is asymptomatic with her atrial fibrillation history -- but her ventricular response rate has improved as she has had her underlying illness treated and with adjustments in medications. Unfortunately, we do not know when this episode of atrial fibrillation started and she has only been anticoagulated for the past 3 days. Therefore we need to have her fully anticoagulated for a minimum of 3-1/2 weeks before considering active attempts at getting her back to a normal sinus rhythm. (3) Cholecystitis: Appreciate gastroenterology recommendations. She remains clinically stable - no complaints of fevers, chills, or abdominal pain. Differential - acalculous cholecystitis versus microlithiasis. HIDA scan negative follow-up in the gastroenterology clinic after discharge Trend lft's, wbc count. Patient is on Zosyn and doxycycline MELD low. (4) Abnormal LFTs: Trending down slowly, continue monitoring AST and ALT. (5) Atrial fibrillation with RVR: Paroxysmal A. fib's. Continue sotalol. Continue telemetry. See above cardiology recommendations. Continue recommended regimen. Continue Eliquis. (6) DVT prophylaxis: Eliquis (7) CHF (congestive heart failure): Elevated BNP. Restrict p.o. fairly fluid to 1200 cc Strict in and out Daily weight We will repeat chest x-rays to determine status of pneumonia and CHF Patient would possibly need to start diuretic. Trend down BNP Subjective Patient seen and examined at the bedside. Patient leukocyte count started to trend down. She was switched yesterday to Zosyn because she was doing better. HIDA scan was done this morning and it was negative. Gastroenterology recommended outpatient follow-up. Steroids are discontinued. Patient clinically looks better even though her white blood cell count is elevated. Patient blood pressure and heart rate are under better control. Blood cultures so far negative. Patient denies fever chills, chest pain, shortness of breath, frequency, urgency. Liver enzymes are trending down nicely. Her BNP is improving from 3683-7171. She continues to complain of cough and wheezing. Review of Systems Review of Systems: All systems reviewed & are unremarkable except as noted in HPI & below Physical Exam Constitutional: WD/WN, vitals as above + obese Eyes: PERRL, conjunctivae normal, anicteric sclerae ENMT: external ear and nose normal, oropharynx normal Neck: trachea midline, no thyromegaly Respiratory: normal respiratory effort Auscultation: + crackles and + wheezes (Crackles and wheezes bilaterally. Worse on the right) Cardiovascular: Rate/Rhythm: + irregularly irregular Heart Sounds: normal S1 and normal S2 Chest (Breasts): normal inspection/palpation of breasts Gastrointestinal (Abdomen): normal bowel sounds, soft, nontender, no hep atosplenomegaly Musculoskeletal: no cyanosis or clubbing, extremities motor strength 5/5 Skin: no rashes, warm and dry Neurologic: patellar DTR's 2+ bilat, sensation intact Psychiatric: A+Ox3, euthymic affect Lymphatic: no cervical or axillary lymphadenopathy Results & Data Vital Signs (Past 12 Hours) Vital Signs Temp Pulse Pulse Resp BP BP Pulse Ox 01/04/19 10:30 86 01/04/19 07:28 36.6 C 86 26 H 171/95 H 94 01/04/19 07:21 78 18 96 01/04/19 03:01 36.8 C 94 H 19 167/87 H 91 01/03/19 23:27 36.7 C 82 22 177/97 H 178/115 H 98 01/03/19 23:13 71 18 96 PG Care Time/CCT Total # of Minutes Spent Total Time Spent with Patient: Total time spent is greater than 50% in coordination of care (as documented) at patient's floor/unit and/or counseling patient:
[2019-01-04 11:49] LABS: AFP Tumor Marker Serum 3.6 NG/ML (<6.1); Hepatitis A Antibody IgM NON-REACTIVE (NON-REACTIVE); Hepatitis B Core Antibody IgM NON-REACTIVE (NON-REACTIVE)
[2019-01-04] MEDS: SODIUM CHLOR 7% 4 ML NEB NEB SCH (19:57)
[2019-01-04] MEDS: GUAIFENESIN/CODEINE 200MG/20MG 10ML UDC PO SCH (23:51)
[2019-01-05] MEDS: HydrALAZINE 10 MG TAB PO PRN (00:06)
[2019-01-05] MEDS: ALBUT/IPRATROP 3MG/0.5MG NEB 3 ML VIAL NEB SCH ×6 (03:00→23:00)
[2019-01-05] MEDS: PIPERACILLIN/TAZOBACTAM 3.375 GM in DEXTROSE 5% 100 ML IV SCH ×3 (04:18→20:29)
[2019-01-05] MEDS: GUAIFENESIN/CODEINE 100MG/10MG 5ML UDC PO SCH ×6 (04:30→23:36)
[2019-01-05] MEDS: GUAIFENESIN/CODEINE 200MG/20MG 10ML UDC PO SCH ×6 (04:30→23:36)
[2019-01-05] MEDS ORDERED: METOPROLOL TARTRATE 1 MG/ML VIAL IV STA (04:51)
[2019-01-05 06:26] LABS: Basophils # (auto) 0.03 K/uL (0-0.2); Basophils % (auto) 0.2 %; Eosinophils # (auto) 0.72 K/uL (0-0.5); Eosinophils % (auto) 3.6 %; Hematocrit (blood only) 38.9 % (37-47); Hemoglobin 12.6 g/dL (12.0-16.0); Immature Granulocytes # (auto) 0.74 K/uL (0.00-0.02); Immature Granulocytes % (auto) 3.7 %; Lymphocytes # (auto) 2.31 K/uL (1.2-3.4); Lymphocytes % (auto) 11.7 %; Mean Corpuscular Hemoglobin 27.1 pg (25-34); Mean Corpuscular Hgb Conc 32.4 g/dL (32-36); Mean Corpuscular Volume 83.7 fL (80-100); Mean Platelet Volume 10.1 fL (7.4-10.4); Monocytes % (auto) 8.6 %; Neutrophils # (auto) 14.24 K/uL (1.4-6.5); Neutrophils % (auto) 72.2 %; Platelet Count 200 K/uL (130-400); RDW Coefficient of Variation 15.4 % (11.5-14.5); RDW Standard Deviation 46.7 fL (36.4-46.3); Red Blood Count 4.65 M/uL (4.2-5.4); White Blood Count 19.74 K/uL (4.8-10.8)
[2019-01-05] MEDS: SODIUM CHLOR 7% 4 ML NEB NEB SCH ×2 (07:12→19:53)
[2019-01-05 07:15] LABS: Albumin Globulin Ratio 0.6 (0.9-2); Albumin Level 2.2 gm/dl (3.4-5.0); Bilirubin,Total 0.6 mg/dl (0.2-1); Calcium 8.1 mg/dl (8.5-10.1); Creatinine Clr Calc Pharmacy 79.3 ml/min; Est GFR (African American) 96.9; Est GFR (Non-African American) 83.6; Globulin 3.7 gm/dl (2.5-4.0); Potassium 3.7 mmol/L (3.5-5.1); Total Protein 5.9 gm/dl (6.4-8.2)
[2019-01-05] MEDS: METOPROLOL TARTRATE 25 MG TAB PO SCH ×2 (08:31→20:35)
[2019-01-05] MEDS: APIXABAN 5 MG TABLET PO SCH ×2 (08:31→20:35)
[2019-01-05] MEDS: BusPIRone 15 MG TAB PO SCH ×3 (08:31→20:35)
[2019-01-05] MEDS: DOCUSATE SODIUM 100 MG CAP PO SCH ×2 (08:31→20:35)
[2019-01-05] MEDS: guaiFENesin 600 MG TABCR PO SCH ×2 (08:32→20:35)
[2019-01-05] MEDS: VENLAFAXINE HCL XR 75 MG CAPXR PO SCH (08:32)
[2019-01-05] MEDS: SOTALOL HCL 80 MG TAB PO SCH ×2 (08:32→20:35)
[2019-01-05] MEDS: VENLAFAXINE HCL XR 150 MG CAPXR PO SCH (08:32)
[2019-01-05] MEDS: BENZONATATE 100 MG CAPSULE PO SCH ×3 (08:32→20:34)
[2019-01-05] MEDS: MEMANTINE HCL 10 MG TAB PO SCH ×2 (08:32→20:34)
[2019-01-05] MEDS: DOCUSATE SODIUM/SENNA 50/8.6MG TAB PO SCH (08:33)
[2019-01-05] MEDS: DONEPEZIL HCL 10 MG TAB PO SCH (08:33)
[2019-01-05] MEDS: ASPIRIN 81 MG ECTAB PO SCH (08:33)
[2019-01-05] MEDS: LISINOPRIL 20 MG TAB PO SCH (08:33)
[2019-01-05] MEDS: LORazepam 0.5 MG TAB PO SCH ×3 (08:39→20:32)
[2019-01-05] MEDS: DOXYCYCLINE HYCLATE 100 MG in DEXTROSE 5% 100 ML IV SCH (08:39)
--- NOTE | 2019-01-05 19:28 | Hospitalist Progress Note ---
Date of Service January 05, 2019 Assessment & Plan (1) Hypoxia: Slowly improving. WBC trending down. Patient continues to be on 3 L of oxygen. She did not require oxygen at home. It is caused by hospital-acquired pneumonia. Patient developed "red man" syndrome. Vancomycin discontinued and Zosyn and she is started on cefepime and Flagyl to cover for hospital-acquired and possibly aspiration pneumonia. Noted leukocytosis today of 19,000-->20,000-->19,000. Even though some of the leukocyte elevation can be contributed to IV steroids it is difficult to explain the amount of 19,000 from 13.6 which patient had when she was on vancomycin and Zosyn. Cefepime and metronidazole discontinued and patient switched back to Zosyn since she responded better and added doxycycline 100 mg twice daily. IV Solu-Medrol discontinued. Continue breathing treatments every 4 hours as needed. Continue supplemental oxygen oxygen while patient in recovery phase. (2) Hypertensive urgency: Appreciate cardiology recommendations. Pressure is now better controlled with the following regimen: Added diltiazem CD 120 mg daily for both rate control and to lower BP. Continue Sotalol 120 mg b.i.d. -- we can titrate this to 160 mg b.i.d. after she has been anticoagulated for at least 3 and half weeks. Continue Lopressor 50 mg b.i.d.. Continue Eliquis 5 mg b.i.d.. Continue aspirin 81 mg daily. Continue lisinopril 12.5 mg daily. Continue monitoring blood pressure. Low-sodium diet. In regard of cardioversion per cardiology recommendations her ventricular response rate has improved significantly, and she is asymptomatic with her atrial fibrillation history -- but her ventricular response rate has improved as she has had her underlying illness treated and with adjustments in medications. Unfortunately, we do not know when this episode of atrial fibrillation started and she has only been anticoagulated for the past 3 days. Therefore we need to have her fully anticoagulated for a minimum of 3-1/2 weeks before considering active attempts at getting her back to a normal sinus rhythm. (3) Cholecystitis: Appreciate gastroenterology recommendations. She remains clinically stable - no complaints of fevers, chills, or abdominal pain. Differential - acalculous cholecystitis versus microlithiasis. HIDA scan negative follow-up in the gastroenterology clinic after discharge Trend lft's, wbc count. Patient is on Zosyn and doxycycline MELD low. (4) Abnormal LFTs: Trending down slowly, continue monitoring AST and ALT. (5) Atrial fibrillation with RVR: Paroxysmal A. fib's. Continue sotalol. Continue telemetry. See above cardiology recommendations. Continue recommended regimen. Continue Eliquis. (6) Chronic venous stasis: Patient lower extremity has been always enlarged per patient only words. 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 Sometimes her legs are itchy and she has some excoriations on the lower extremities. She would most likely benefit from lymphedema specialist as an outpatient. There are a couple of excoriations on the lower extremity and some small foci of inflammation. Would not call that cellulitis. Patient is already on Zosyn and doxycycline should cover for the skin infection as well. Venous Doppler of the lower extremities pending. Placed referral to wound care. Present on Admission?: Yes (7) CHF (congestive heart failure): Elevated BNP improving Restrict p.o. fairly fluid to 1200 cc Strict in and out Daily weight We will repeat chest x-rays to determine status of pneumonia and CHF Continue Lasix 20 mg IV twice daily Replenish potassium as needed (8) DVT prophylaxis: Eliquis Subjective Patient seen and examined at the bedside. Patient leukocyte count started to trend down. The patient is doing better on Zosyn and doxycycline.HIDA scan was done the day before and it was negative. Gastroenterology recommended outpatient follow-up. Patient clinically looks better even though her white blood cell count is elevated. Patient blood pressure and heart rate are under better control. Blood cultures so far negative. Patient denies fever chills, chest pain, shortness of breath, frequency, urgency. Liver enzymes are trending down nicely. Her BNP is improving from 7933-2255. She continues to complain of cough and wheezing but overall steady improving. Review of Systems Review of Systems: All systems reviewed & are unremarkable except as noted in HPI & below Physical Exam Constitutional: WD/WN, vitals as above + obese Eyes: PERRL, conjunctivae normal, anicteric sclerae ENMT: external ear and nose normal, oropharynx normal Neck: trachea midline, no thyromegaly Respiratory: normal respiratory effort Auscultation: + crackles and + wheezes (Crackles and wheezes bilaterally. Worse on the right) Cardiovascular: Rate/Rhythm: + irregularly irregular Heart Sounds: normal S1 and normal S2 Chest (Breasts): normal inspection/palpation of breasts Gastrointestinal (Abdomen): normal bowel sounds, soft, nontender, no hepatosplenomegaly Musculoskeletal: no cyanosis or clubbing, extremities motor strength 5/5 Skin: no rashes, warm and dry Neurologic: patellar DTR's 2+ bilat, sensation intact Psychiatric: A+Ox3, euthymic affect Lymphatic: no cervical or axillary lymphadenopathy Results & Data Vital Signs (Past 12 Hours) Vital Signs Temp Pulse Pulse Resp BP Pulse Ox 01/05/19 15:36 36.9 C 71 19 147/72 H 99 01/05/19 15:00 72 99 01/05/19 12:18 164/88 H 01/05/19 11:17 36.7 C 77 22 202/114 H 100 01/05/19 11:05 76 16 100 01/05/19 09:04 74 01/05/19 07:52 35.9 C L 85 20 186/97 H 100 PG Care Time/CCT Total # of Minutes Spent Total Time Spent with Patient: Total time spent is greater than 50% in coordination of care (as documented) at patient's floor/unit and/or counseling patient:
[2019-01-05] MEDS: FUROSEMIDE 20 MG in SYRINGE 0 ML IV SCH (20:31)
[2019-01-05] MEDS: DOXYCYCLINE HYCLATE 100 MG CAP PO SCH (20:34)
--- NOTE | 2019-01-05 23:02 | Ultrasound Report ---
BILATERAL LOWER EXTREMITY VENOUS DOPPLER HISTORY: lower leg redness and warmth COMPARISON STUDY: None. FINDINGS: There is normal compressibility, flow, and augmentation within the bilateral lower extremit y deep venous systems. IMPRESSION: No DVT within the right or left lower extremity. Electronically signed by: Abdiaziz Barraza M.D. 01/05/2019 11:00 PM
[2019-01-05] MEDS: ALBUT/IPRATROP 3MG/0.5MG NEB 3 ML VIAL NEB PRN (23:16)
[2019-01-06] MEDS: ALBUT/IPRATROP 3MG/0.5MG NEB 3 ML VIAL NEB SCH ×7 (01:16→23:53)
[2019-01-06] MEDS: GUAIFENESIN/CODEINE 100MG/10MG 5ML UDC PO SCH ×5 (04:22→20:47)
[2019-01-06] MEDS: GUAIFENESIN/CODEINE 200MG/20MG 10ML UDC PO SCH ×5 (04:22→20:47)
[2019-01-06] MEDS: PIPERACILLIN/TAZOBACTAM 3.375 GM in DEXTROSE 5% 100 ML IV SCH ×3 (04:22→20:47)
[2019-01-06 06:17] LABS: Basophils # (auto) 0.03 K/uL (0-0.2); Basophils % (auto) 0.1 %; Eosinophils # (auto) 1.19 K/uL (0-0.5); Eosinophils % (auto) 5.5 %; Hematocrit (blood only) 39.5 % (37-47); Hemoglobin 13.1 g/dL (12.0-16.0); Immature Granulocytes # (auto) 0.74 K/uL (0.00-0.02); Immature Granulocytes % (auto) 3.4 %; Lymphocytes # (auto) 2.28 K/uL (1.2-3.4); Lymphocytes % (auto) 10.5 %; Mean Corpuscular Hemoglobin 27.5 pg (25-34); Mean Corpuscular Hgb Conc 33.2 g/dL (32-36); Mean Platelet Volume 10.2 fL (7.4-10.4); Monocytes # (auto) 1.43 K/uL (0.11-0.59); Monocytes % (auto) 6.6 %; Neutrophils # (auto) 16.05 K/uL (1.4-6.5); Neutrophils % (auto) 73.9 %; Platelet Count 236 K/uL (130-400); RDW Coefficient of Variation 15.1 % (11.5-14.5); RDW Standard Deviation 45.9 fL (36.4-46.3); Red Blood Count 4.76 M/uL (4.2-5.4); White Blood Count 21.72 K/uL (4.8-10.8)
[2019-01-06 06:56] LABS: Albumin Level 2.3 gm/dl (3.4-5.0); BUN Creatinine Ratio 25.5 (10-20); Calcium 8.5 mg/dl (8.5-10.1); Creatinine Clr Calc Pharmacy 71.8 ml/min; Est GFR (African American) 89.3; Est GFR (Non-African American) 77.1; Potassium 3.4 mmol/L (3.5-5.1)
[2019-01-06] MEDS: SODIUM CHLOR 7% 4 ML NEB NEB SCH ×2 (06:56→19:06)
[2019-01-06 06:59] LABS: Albumin Globulin Ratio 0.6 (0.9-2); Bilirubin,Total 0.8 mg/dl (0.2-1); Total Protein 6.3 gm/dl (6.4-8.2)
[2019-01-06] MEDS: LORazepam 0.5 MG TAB PO SCH ×3 (08:40→20:47)
[2019-01-06] MEDS: FUROSEMIDE 20 MG in SYRINGE 0 ML IV SCH ×2 (08:40→18:09)
[2019-01-06] MEDS: POTASSIUM CHLORIDE 20 MEQ TABCR PO SCH (08:40)
[2019-01-06] MEDS: DOCUSATE SODIUM 100 MG CAP PO SCH ×2 (08:41→20:49)
[2019-01-06] MEDS: guaiFENesin 600 MG TABCR PO SCH ×2 (08:41→20:50)
[2019-01-06] MEDS: METOPROLOL TARTRATE 25 MG TAB PO SCH ×2 (08:41→20:50)
[2019-01-06] MEDS: VENLAFAXINE HCL XR 150 MG CAPXR PO SCH (08:41)
[2019-01-06] MEDS: DONEPEZIL HCL 10 MG TAB PO SCH (08:41)
[2019-01-06] MEDS: APIXABAN 5 MG TABLET PO SCH ×2 (08:41→20:50)
[2019-01-06] MEDS: BENZONATATE 100 MG CAPSULE PO SCH ×3 (08:42→20:51)
[2019-01-06] MEDS: DOXYCYCLINE HYCLATE 100 MG CAP PO SCH ×2 (08:42→20:50)
[2019-01-06] MEDS: SOTALOL HCL 80 MG TAB PO SCH ×2 (08:42→20:48)
[2019-01-06] MEDS: BusPIRone 15 MG TAB PO SCH ×3 (08:42→20:51)
[2019-01-06] MEDS: MEMANTINE HCL 10 MG TAB PO SCH ×2 (08:43→20:51)
[2019-01-06] MEDS: ASPIRIN 81 MG ECTAB PO SCH (08:43)
[2019-01-06] MEDS: LISINOPRIL 20 MG TAB PO SCH (08:43)
[2019-01-06] MEDS: VENLAFAXINE HCL XR 75 MG CAPXR PO SCH (08:43)
[2019-01-06] MEDS: DOCUSATE SODIUM/SENNA 50/8.6MG TAB PO SCH (08:52)
--- NOTE | 2019-01-06 08:59 | Hospitalist Progress Note ---
Date of Service January 06, 2019 Assessment & Plan (1) Hypoxia: Continue Zosyn for possible hospital-acquired versus aspiration pneumonia. WBC still elevated, will continue to monitor. Off IV steroids. Continue nebulizers. Sputum culture shows gram-positive cocci with final cultures pend ing. Supplement oxygen as needed only. (2) Hypertensive urgency: Blood pressure is currently high normal. Continue to monitor on a multidrug regimen as noted below. (3) Abnormal LFTs: Abnormal LFTs have since normalized. Patient had a negative HIDA scan. Continue to monitor but patient is currently a symptomatic. (4) Atrial fibrillation with RVR: Continue rate control with Cardizem, sotalol, and Lopressor. Patient is anticoagulated with Eliquis. Eventual plan for possible cardioversion after a full 4 weeks of anticoagulation, will need to be followed as an outpatient. (5) CHF (congestive heart failure): Patient is on a fluid restriction to 1200 cc. She is on Lasix 20 mg IV twice daily. Renal function remains stable with a creatinine that is dropped slightly. Continue to monitor this, consideration to manager exchange to oral diuresis prior to discharge. (6) Physical deconditioning: Eventual plan to [facility] when ready. Subjective Patient seen and examined. She is comfortable on room air. She does have a loose sounding cough with some production of sputum. She denies any shortness of breath. She also denies any chest pain or abdominal pain. She has been afebrile and her blood pressure heart rate has been controlled with medication. Review of Systems Review of Systems: All systems reviewed & are unremarkable except as noted in HPI & below Physical Exam Physical Exam: GENERAL: Non-toxic in appearance. INTEGUMENTARY: Warm, dry, and [place]. HEAD: Normocephalic. EYES: without scleral icterus or trauma. ENT/OROPHARYNX: clear and moist. LYMPHADENOPATHY/NECK: Is supple without lymphadenopathy or meningismus. RESPIRATORY: Scattered rhonchi, mostly concentrated in right lower lung field. No wheeze. CARDIOVASCULAR: Irregular rhythm, rate controlled. GI/ABDOMEN: Soft and nontender. No organomegaly or pulsatile mass. No rebound or guarding. Normal bowel sounds. EXTREMITIES: Warm and well perfused, no edema. BACK: No CVA tenderness. NEUROLOGICAL: Intact without focal deficits. PSYCHIATRIC: normal affect. MUSCULOSKELETAL: Normally developed with good muscle tone. Results & Data Vital Signs (Past 12 Hours) Vital Signs Temp Pulse Resp BP Pulse Ox 01/06/19 07:25 36.6 C 70 18 143/85 H 93 01/06/19 06:57 80 18 96 01/06/19 03:11 36.6 C 77 20 161/78 H 96 01/05/19 23:38 36.6 C 72 22 150/95 H 98 01/05/19 23:16 99 H 18 94 PG Care Time/CCT Total # of Minutes Spent Total Time Spent with Patient: Total time spent is greater than 50% in coordination of care (as documented) at patient's floor/unit and/or counseling patient: :
--- NOTE | 2019-01-06 16:36 | Cardiology Progress Note ---
Date of Service January 06, 2019 Assessment & Plan (1) Atrial fibrillation with RVR: The patient's ventricular response is now adequately controlled on a combination of sotalol, metoprolol tartrate, and diltiazem. In approximately 3 weeks in, we may consider increasing sotalol to 160 mg b.i.d. if necessary. She is tolerating Eliquis without difficulty. (2) HTN (hypertension): Borderline control on current medical regimen. Subjective The patient is resting comfortably in bed without complaints of chest pain, dyspnea, or palpitations. Physical Exam Physical Exam: In general is well-developed well-nourished white female no acute distress. HEENT exam is negative. Neck is supple with full carotid upstrokes. No carotid bruits. Jugular venous pressure is flat 90. There is no thyromegaly. Cardiovascular exam revealed irregular regular rhythm with a 2/6 apical holosystolic murmur. Lungs are clear without rales, rhonchi, wheezes. Abdomen is soft without bruits. Extremities reveal intact radial artery pulses bilaterally. 1+ pretibial edema is noted. Results & Data Vital Signs (Past 12 Hours) Vital Signs Temp Pulse Resp BP BP Pulse Ox 01/06/19 15:41 36.6 C 74 18 160/89 H 93 01/06/19 11:31 36.8 C 86 20 133/64 97 01/06/19 11:13 77 18 97 01/06/19 07:25 36.6 C 70 18 143/85 H 93 01/06/19 06:57 80 18 96 Diagnostic Findings security monitor notes atrial fibrillation with a controlled ventricular response. Occasionally she goes above 100 when active. PG Care Time/CCT Total # of Minutes Spent Total Time Spent with Patient: Total time spent is greater than 50% in coordination of care (as documented) at patient's floor/unit and/or counseling patient: (1) HTN (hypertension) Hypertension type: unspecified Qualified Code(s): I10 - Essential (primary) hypertension
[2019-01-07] MEDS: GUAIFENESIN/CODEINE 200MG/20MG 10ML UDC PO SCH ×4 (00:30→11:43)
[2019-01-07] MEDS: GUAIFENESIN/CODEINE 100MG/10MG 5ML UDC PO SCH ×4 (00:30→11:43)
[2019-01-07] MEDS: ALBUT/IPRATROP 3MG/0.5MG NEB 3 ML VIAL NEB SCH ×3 (03:08→11:06)
[2019-01-07] MEDS: PIPERACILLIN/TAZOBACTAM 3.375 GM in DEXTROSE 5% 100 ML IV SCH ×2 (04:10→11:38)
[2019-01-07 06:39] LABS: Basophils # (auto) 0.02 K/uL (0-0.2); Basophils % (auto) 0.1 %; Eosinophils # (auto) 0.94 K/uL (0-0.5); Eosinophils % (auto) 5.5 %; Hematocrit (blood only) 41.8 % (37-47); Hemoglobin 13.1 g/dL (12.0-16.0); Immature Granulocytes # (auto) 0.57 K/uL (0.00-0.02); Immature Granulocytes % (auto) 3.3 %; Lymphocytes # (auto) 2.22 K/uL (1.2-3.4); Lymphocytes % (auto) 12.9 %; Mean Corpuscular Hemoglobin 26.5 pg (25-34); Mean Corpuscular Hgb Conc 31.3 g/dL (32-36); Mean Corpuscular Volume 84.6 fL (80-100); Mean Platelet Volume 10.2 fL (7.4-10.4); Monocytes # (auto) 1.31 K/uL (0.11-0.59); Monocytes % (auto) 7.6 %; Neutrophils # (auto) 12.14 K/uL (1.4-6.5); Neutrophils % (auto) 70.6 %; Platelet Count 214 K/uL (130-400); RDW Coefficient of Variation 15.5 % (11.5-14.5); RDW Standard Deviation 47.1 fL (36.4-46.3); Red Blood Count 4.94 M/uL (4.2-5.4)
[2019-01-07 06:50] LABS: Albumin Level 2.2 gm/dl (3.4-5.0); BUN Creatinine Ratio 24.3 (10-20); Calcium 8.4 mg/dl (8.5-10.1); Creatinine Clr Calc Pharmacy 73.8 ml/min; Est GFR (African American) 92.3; Est GFR (Non-African American) 79.7; Potassium 3.6 mmol/L (3.5-5.1)
[2019-01-07 06:52] LABS: Albumin Globulin Ratio 0.6 (0.9-2); Bilirubin,Total 0.7 mg/dl (0.2-1); Globulin 3.9 gm/dl (2.5-4.0); Total Protein 6.1 gm/dl (6.4-8.2)
[2019-01-07] MEDS: SODIUM CHLOR 7% 4 ML NEB NEB SCH (07:03)
[2019-01-07] MEDS: LORazepam 0.5 MG TAB PO SCH ×2 (08:07→13:58)
[2019-01-07] MEDS: FUROSEMIDE 20 MG in SYRINGE 0 ML IV SCH (08:08)
[2019-01-07] MEDS: BusPIRone 15 MG TAB PO SCH ×2 (08:08→13:59)
[2019-01-07] MEDS: BENZONATATE 100 MG CAPSULE PO SCH ×2 (08:09→13:59)
[2019-01-07] MEDS: DONEPEZIL HCL 10 MG TAB PO SCH (08:09)
[2019-01-07] MEDS: MEMANTINE HCL 10 MG TAB PO SCH (08:09)
[2019-01-07] MEDS: APIXABAN 5 MG TABLET PO SCH (08:10)
[2019-01-07] MEDS: DOXYCYCLINE HYCLATE 100 MG CAP PO SCH (08:10)
[2019-01-07] MEDS: guaiFENesin 600 MG TABCR PO SCH (08:11)
[2019-01-07] MEDS: DOCUSATE SODIUM 100 MG CAP PO SCH (08:11)
[2019-01-07] MEDS: METOPROLOL TARTRATE 25 MG TAB PO SCH (08:11)
[2019-01-07] MEDS: DOCUSATE SODIUM/SENNA 50/8.6MG TAB PO SCH (08:12)
[2019-01-07] MEDS: ASPIRIN 81 MG ECTAB PO SCH (08:12)
[2019-01-07] MEDS: POTASSIUM CHLORIDE 20 MEQ TABCR PO SCH (08:12)
[2019-01-07] MEDS: LISINOPRIL 20 MG TAB PO SCH (08:13)
[2019-01-07] MEDS: VENLAFAXINE HCL XR 75 MG CAPXR PO SCH (08:13)
[2019-01-07] MEDS: VENLAFAXINE HCL XR 150 MG CAPXR PO SCH (08:14)
[2019-01-07] MEDS: SOTALOL HCL 80 MG TAB PO SCH (08:14)
--- NOTE | 2019-01-07 09:14 | Discharge Summary ---
Date of Service January 07, 2019 Admission HPI Per Admitting Provider Attending: Dr. Beltran There is a 78-year-old female that presents with shortness of breath times several days. She presented to the emergency department over the weekend and was found to be short of breath and imaging suggested bronchitis. She was discharged home with a prescription for amoxicillin. Apparently this prescription was never transmitted to the pharmacy and patient did not receive any antibiotics since her ER visit.Over the last 2 days the patient's cough has been worse and family describes as a wet cough that is nonproductive.She has some minimal rib pain with cough but otherwise no chest pain or tightness. She has no back pain or flank pain.The patient is typically not on supplemental O2 at home. She has no other pulmonary disease.The patient denies hemoptysis. The patient's past medical history includes atrial fibrillation with RVR, hypertension, abnormal LFTs, reactive airway disease, and depression. Since in the emergency department the patient had a rate Change from 150 bpm to about 119 bpm. She did receive 1 dose of sotalol as well as lisinopril.Patient does have a leukocytosis with a white count of 16.4. Also her lactic acid is elevated at 3.5.She has been having regular bowel movements but no diarrhea.She has no abdominal pain.She has no other acute complaints. Admission Exam Per Admitting Provider GENERAL : No acute distress EYES: No icterus, gaze conjugate. Pupils equal and reactive to light NOSE: No evidence of epistaxis. Nasal cannula placed and secure MOUTH: No lesions or candidiasis. Mucosa moist. No dentures or bridgework. NECK: Supple. Transmitted bronchospasm into the neck LUNGS: Diffuse rhonchi. No paroxysmal chest wall movement. Diffuse wheezing HEART: Irregular, irregular, rate in the 120s ABDOMEN: Soft, NT, ND, BS Present. No rebound tenderness or guarding EXTREMITIES: Bilateral +1 pitting edema to bilateral lower extremities, left slightly worse than right; family and patient report that this is typical for this patient. No history of DVT. Pedal pulses intact and equal bilaterally. Feet are cool bilaterally. NEURO: A&OX3. No specific neurological deficits. Patient is hard of hearing. Principal Diagnosis 1. Pneumonia, likely hospital-acquired 2. Hypoxia, likely multifactorial 3. Chronic COPD 4. Accelerated hypertension 5. Atrial fibrillation with RVR on anticoagulation 6. Abnormal LFTs, now resolved, unclear etiology Discharge Exam GENERAL: Non-toxic in appearance. INTEGUMENTARY: Warm, dry, and [place]. HEAD: Normocephalic. EYES: without scleral icterus or trauma. ENT/OROPHARYNX: clear and moist. LYMPHADENOPATHY/NECK: Is supple without lymphadenopathy or meningismus. RESPIRATORY: Very diminished all novoa, no wheeze, minimal rhonchi, improved from yesterday CARDIOVASCULAR: Regular rate and rhythm. GI/ABDOMEN: Soft and nontender. No organomegaly or pulsatile mass. No rebound or guarding. Normal bowel sounds. EXTREMITIES: Warm and well perfused. BACK: No CVA tenderness. NEUROLOGICAL: Intact without focal deficits. PSYCHIATRIC: normal affect. MUSCULOSKELETAL: Trace pitting edema Discharge Data Allergies Allergy/AdvReac Type Severity Reaction Status Date / Time Sulfa (Sulfonamide Allergy Mild "SULFA Verified 12/29/18 09:44 Antibiotics) DRUGS": UNKNOWN acetaminophen Allergy Unknown ? Verified 12/29/18 09:44 oxycodone Allergy Unknown ? Verified 12/29/18 09:44 Consultations 12/29/18 12:27 ED Decision to Admit Stat 01/01/19 13:36 Consult Cardiology Routine 01/01/19 13:38 Consult Gastroenterology Routine Ordered Studies 12/29/18 11:04 CT abd pelvis IV con only Stat CT angio chest PE protocol Stat 12/30/18 09:37 US abdomen limited Routine 01/01/19 13:30 MR MRCP Routine 01/05/19 18:03 US venous doppler LE Routine Hospital Course (1) Pneumonia: Patient was initially started on Zosyn and vancomycin to cover possible hospital-acquired pneumonia. Steroids were started briefly as the patient had bronchospasm on exam although these were stopped soon after. Patient was also given duo nebs. Patient had reaction to the vancomycin with "red man" syndrome this was discontinued. And box eventually switched briefly to cefepime and metronidazole although patient seemed to have poor response to this and Zosyn was restarted. Patient underwent 7-day course of this and was changed over to o ral doxycycline to finish. Patient did improve considerably and was not hypoxic at the time of discharge. She did have sputum culture which showed MSSA which is sensitive to antibiotics. (2) Atrial fibrillation with RVR: Patient was seen by cardiology. Patient did have a significant rate into the 140s. She was initially started on heparin drip and was switched over to Eliquis 5 mg twice daily. She is on sotalol 120 mg twice daily. There is consideration of titrating this but the dose was maintained for now. She is also on Lopressor 50 mg twice daily. Cardizem CD 120 mg daily was added. Patient was rate controlled at the time of discharge. Cardiology requested to follow-up with her after discharge (3) Hypertensive urgency: Patient was on cardiac regimen as described above. She is also on lisinopril 12.5 mg along with a low-dose aspirin. Blood pressure was 151/88 at time of discharge and her medications may need to be titrated further. Of note, she had an echo which showed a EF of 60-65%. Patient had no significant valvular findings. (4) Abnormal LFTs: Patient was seen by GI for elevated LFTs. This since normalized. HIDA scan was performed at the request of gastroenterology was was negative. Patient denied any abdominal pain was otherwise tolerating diet. (5) CHF (congestive heart failure): Patient is on a fluid restriction to 1200 cc. She is on Lasix 20 mg IV twice daily. Renal function remains stable with a creatinine that is dropped slightly. Continue to monitor this, consideration to house mover to oral diuresis prior to discharge. (6) Physical deconditioning: Plan today is to discharge patient to [facility]. She will continue to add doxycycline to finish antibiotics as noted. I did change her Lasix 20 mg p.o. daily. She will need to follow-up with cardiology as well as her primary care physician. Total Time Total Time Spent Total Time Spent (In Minutes): Discharge time was in excess of 30 minutes. Discharge Plan Discharge Items Patient Disposition: Transfer Inpatient Rehab Fac Reason For Visit: PNEUMONIA Discharge Diagnosis: 1. Hospital-acquired versus aspiration pneumonia 2. Hypertensive urgency, not controlled 3. Abnormal LFTs of unclear etiology, now normal with negative work-up 4. Atrial fibrillation with RVR 5. Acute on chronic diastolic CHF Condition on Discharge: Good Activity: Per Instructions section Lifting: Gradually increase as tolerated Weightbearing: Full weightbearing Non-emergency contact: Primary Care Provider Call non-emergency contact if: your symptoms worsen and you have a fever Follow-up/Referrals: Dima Hartley MD [Physician] - (Follow-up in 3-4 weeks to discuss further treatment of atrial fibrillation.) Digna Andrew CRNP [Primary Care Provider] - Diet: Heart Healthy Fluids: 1200ml (5 cups) Addtl Attending Provider Instructions: None Pending Studies at Discharge: No Stand-Alone Forms: My [facility] Skilled Items Patient informed of condition?: Yes DNR: No Discharge Level of Care: Acute rehab Communicable Disease: No Discharge Prognosis: Stable Lines: None Urinary Catheter: No Medications and DC Order Prescriptions: New doxycycline hyclate 100 mg Capsule 100 mg PO BID 3 Days Qty: 6 RF: 0 ipratropium-albuterol 0.5 mg-3 mg(2.5 mg base)/3 mL Solution For Nebulization 3 ml NEB Q4R PRN (Reason: wheezing) 30 Days Qty: 3 RF: 0 lorazepam 0.5 mg Tablet 0.5 mg PO TID 3 Days Qty: 9 RF: 0 diltiazem HCl 120 mg Capsule,Ext.Rel 24h Degradable 120 mg PO QAM 90 Days Qty: 90 RF: 0 metoprolol tartrate 25 mg Tablet 50 mg PO BID 90 Days Qty: 360 RF: 0 Eliquis 5 mg Tablet 5 mg PO BID 90 Days Qty: 180 RF: 0 furosemide [Lasix] 20 mg tablet 20 mg PO DAILY Qty: 1 RF: 0 Continued donepezil 10 mg tablet 10 mg PO DAILY RF: 0 venlafaxine [Effexor XR] 150 mg capsule,extended release 24hr 150 mg PO QAM RF: 0 sotalol [Sorine] 120 mg tablet 120 mg PO BID RF: 0 lorazepam 0.5 mg tablet 0.5 mg PO TID RF: 0 lisinopril [Zestril] 10 mg Tablet 10 mg PO QAM RF: 0 naproxen sodium [Aleve] 220 mg Tablet 220 mg PO Q12 PRN (Reason: Pain) RF: 0 docusate sodium 100 mg Capsule 100 mg PO BID RF: 0 hydroxyzine HCl 25 mg tablet 25 mg PO Q8 PRN (Reason: Itching) RF: 0 ergocalciferol (vitamin D2) [Vitamin D2] 50,000 unit Capsule 50,000 unit PO LEVY RF: 0 loratadine [Loradamed] 10 mg Tablet 10 mg PO QAM RF: 0 buspirone 15 mg tablet 15 mg PO TID RF: 0 memantine [Namenda XR] 28 mg capsule,sprinkle,ER 24hr 28 mg PO QAM RF: 0 benzonatate 100 mg Capsule 100 mg PO TID PRN (Reason: Cough) RF: 0 venlafaxine [Effexor XR] 75 mg capsule,extended release 24hr 75 mg PO QAM RF: 0 sennosides-docusate sodium [Senna Plus] 8.6-50 mg Tablet 1 tab PO DAILY RF: 0 dextromethorphan-guaifenesin [Tussin DM] 10-100 mg/5 mL Syrup 5 ml PO Q4H PRN (Reason: Cough) RF: 0 Aquaphor Ointment 1 applic TOPICAL TID PRN (Reason: Rash) RF: 0 aspirin 81 mg Tablet,Delayed Release (Dr/Ec) 81 mg PO DAILY RF: 0 lisinopril [Zestril] 2.5 mg tablet 2.5 mg PO DAILY RF: 0 Antacid-Simethicone 400-400-40 mg/5 mL Suspension 30 ml PO Q6H PRN (Reason: Stomach Upset) RF: 0 Sudafed PE 10 mg Tablet 10 mg PO Q4H PRN (Reason: Congestion) RF: 0 Discontinued amoxicillin-pot clavulanate [Augmentin] 875-125 mg Tablet 1 tab PO BID RF: 0 Admission Data Admit Date/Time: 12/29/18 13:46 Attending Provider: Estuardo Thakkar Admit Provider: Feliciano Beltran Primary Care Provider: Digna Andrew Other Providers: Feliciano Beltran ; Dima Hartley ; Wes Layton ; [facility]
== END 2019-01-07 14:51 | DRG 177 ==
LOC: ED 08:57 → SUATTDRO 13:46 → 2E 13:46

== ENCOUNTER 2019-02-14 10:57 | Inpatient (IN) ==
[2019-02-14] MEDS ORDERED: cefTRIAXone SODIUM 1,000 MG/50 ML BAG IV STA (12:11)
[2019-02-14] MEDS ORDERED: IBUPROFEN 200 MG TAB PO STA (12:14)
[2019-02-14] MEDS ORDERED: LEVOFLOXACIN/D5W 750 MG/150 ML BAG IV SCH (12:15)
[2019-02-14 12:26] LABS: Basophils # (auto) 0.01 K/uL (0-0.2); Basophils % (auto) 0.1 %; Hematocrit (blood only) 39.7 % (37-47); Hemoglobin 12.8 g/dL (12.0-16.0); Immature Granulocytes # (auto) 0.07 K/uL (0.00-0.02); Immature Granulocytes % (auto) 0.7 %; Lymphocytes # (auto) 0.53 K/uL (1.2-3.4); Mean Corpuscular Hemoglobin 27.2 pg (25-34); Mean Corpuscular Hgb Conc 32.2 g/dL (32-36); Mean Corpuscular Volume 84.3 fL (80-100); Mean Platelet Volume 9.8 fL (7.4-10.4); Monocytes # (auto) 0.53 K/uL (0.11-0.59); Neutrophils # (auto) 9.55 K/uL (1.4-6.5); Neutrophils % (auto) 89.2 %; Platelet Count 266 K/uL (130-400); RDW Coefficient of Variation 16.1 % (11.5-14.5); Red Blood Count 4.71 M/uL (4.2-5.4); White Blood Count 10.69 K/uL (4.8-10.8)
[2019-02-14 12:36] LABS: Appearance Urine Cloudy (Clear); Bacteria Urine Automated Negative (Negative); Bilirubin Urine Negative (Negative); Blood Urine 1+ (Negative); Color Urine Yellow; Epithelial Cell Urine Auto >30 /lpf (0-5); Glucose Urine UA Negative (Negative); Ketones Urine Trace (Negative); Leukocyte Esterase Urine Negative (Negative); Nitrite Urine Negative (Negative); Specific Gravity Urine 1.015 (1.000-1.030); Urobilinogen Urine Negative (Negative); pH Urine 7.5 (4.5-7.5)
[2019-02-14 12:40] LABS: INR 1.3 (0.9-1.1); Partial Thromboplastin Time 27.3 Seconds (21.0-31.0)
[2019-02-14 12:44] LABS: Albumin Level 2.6 gm/dl (3.4-5.0); Calcium 9.2 mg/dl (8.5-10.1); Creatinine Clr Calc Pharmacy 63.5 ml/min; Est GFR (African American) 81.3; Est GFR (Non-African American) 70.1; Potassium 2.7 mmol/L (3.5-5.1)
[2019-02-14 12:47] LABS: Albumin Globulin Ratio 0.6 (0.9-2); Bilirubin,Total 1.3 mg/dl (0.2-1); Globulin 4.7 gm/dl (2.5-4.0); Total Protein 7.3 gm/dl (6.4-8.2)
--- NOTE | 2019-02-14 12:47 | XRay Report ---
XR chest 1V portable CLINICAL HISTORY: Sepsis COMPARISON STUDY: 01/30/2019 FINDINGS: The heart is normal in size. There are bilateral left greater than right pulmonary airspace opacities. These demonstrate perihilar sparing. This pattern is classically associated with organize d pneumonia and chronic eosinophilic pneumonia, and pulmonary hemorrhage in setting of pulmonary embo li.. Given the normal chest x-ray performed 01/30/2019, an atypical presentation of pulmonary edema m ust also be considered. An acute multifocal pneumonia could also appear similar. There is equivocal t race left pleural effusion IMPRESSION: 1. Bilateral left greater than right pulmonary airspace opacities. Electronically signed by: Pancho Tineo M.D. 02/14/2019 12:45 PM
[2019-02-14 12:59] LABS: Protein Urine 1+ (Negative); Sulfosalicylic Acid Urine Positive (Negative)
[2019-02-14] MEDS ORDERED: METOPROLOL TARTRATE 1 MG/ML VIAL IV STA (13:05)
[2019-02-14] MEDS ORDERED: SODIUM CHLORIDE 0.9% 1000ML 500 ML IV ONE (13:43)
[2019-02-14] MEDS ORDERED: POTASSIUM CHLORIDE 10 MEQ TABCR PO SCH (13:45)
[2019-02-14 13:51] LABS: Thyroid Stimulating Hormone 1.55 uIu/ml (0.300-4.500)
--- NOTE | 2019-02-14 14:08 | History & Physical Report ---
Date of Service February 14, 2019 Assessment & Plan (1) Sepsis: Admit to PCU on telemetry Vital signs every 4 hours Given ceftriaxone and levofloxacin in the ER, but since patient was in and out from the hospital recently discharged hospital-acquired pneumonia could not be ruled out. Patient was given dose of vancomycin empirically, then since MRSA negative she was continued on cefepime and metronidazole with possibility that she also has aspiration pneumonia. Speech therapy, PT and OT placed order. Patient would benefit when clinically improved to go back to SNF. DVT prophylaxis patient is on apixaban for A. fib's. Follow-up blood cultures and treat per specificity and sensitivity. Patient is a full code for now until clarified with her daughter. Present on Admission?: Yes (2) Atrial fibrillation with RVR: Continue apixaban 5 mg p.o. twice daily. Sotalol 60 mg p.o. twice daily, continue diltiazem 120 mg p.o. every morning. Present on Admission?: Yes (3) Hypoxia: Continue supplemental oxygen Duo nebs every 4 hours and as needed. Continue IV antibiotics, and treated underlining infection Present on Admission?: Yes (4) Alzheimer's dementia: Appears to be progressive. Continue donepezil 10 mg p.o. every morning, continue memantine 28 mg p.o. every morning. Present on Admission?: Yes (5) Failure to thrive: Patient is not gaining weight. Her appetite is poor. Placed consult for dietitian. Present on Admission?: Yes (6) Mitral valve disease: Chronic issue Present on Admission?: Yes (7) CHF (congestive heart failure): Strict in and out Daily weight Free water restriction to 1200 mils per day Low-sodium diet Patient is on home dose of furosemide 20 mg p.o. every morning Replenish potassium and other electrolytes. Present on Admission?: Yes (8) HTN (hypertension): Patient is now septic. Hold blood pressure medicine except for metoprolol tartrate 50 mg p.o. daily twice daily. Hold lisinopril 12.5 mg p.o. every morning. Continue diltiazem 120 mg p.o. every morning for A. fib's. Continue sotalol 160 mg p.o. twice daily. Continue aspirin 81 mg p.o. every morning. Present on Admission?: Yes (9) Depression: Continue venlafaxine 25 mg p.o. every morning. Continue lorazepam 0.5 mg p.o. at 3 times daily. History of Present Illness Chief Complaint: Altered mental status, generalized weakness Primary Care Provider: GAVIN Dong The patient is a 78 year old female with past medical history of Alzheimers, A-fib,CHF, mitral valve disease, failure to thrive, hyperlipidemia, hypertension, depression, who presents to the ED with complaints of an episode of altered mental status that started 2 days ago. Patient daughter is at the bedside and she reports that patient did not eat anything for 2 days, but she was drinking lots of fluids even though she was on fluid restriction. Patient is poor historian and it is difficult to obtain review of system from her. She does looks better at this time than the last time that she was admitted to the hospital. Per daughter, the patient had a fever yesterday. The patient denies chest pain, shortness of breath, dysuria, abdominal pain, nausea and vomiting. Per daughter, the patient has been taking all of her medications properly until today. The patient states that she is not normally on oxygen; however, nursing staff states that she was hypoxic upon arrival. The patient denies taking any medication prior to arrival. Patient needed to be on supplemental oxygen 4 L to be above 92%. Labs are reviewed:WBC 10.69,, hemoglobin 12.8 hematocrit 39.7 platelets 266, sodium 138, potassium 2.7 replenished chloride 99, BUN 22, creatinine 0.8 GFR 70, lactate 3.3-->2.5-->2.6, procalcitonin 14.20. Chest x- ray:Bilateral left greater than right pulmonary airspace opacities. Decision was made to admit patient for sepsis caused by pneumonia, generalized weakness at PCU on telemetry. Allergies Allergy/AdvReac Type Severity Reaction Status Date / Time Sulfa (Sulfonamide Allergy Mild Unknown Verified 02/14/19 14:32 Antibiotics) acetaminophen Allergy Unknown Unknown Verified 02/14/19 14:32 oxycodone Allergy Unknown Unknown Verified 02/14/19 14:32 Home Medications Home Medications Medication Instructions Recorded Confirmed Type buspirone 15 mg PO TID 01/18/18 02/14/19 History docusate sodium [Colace] 100 mg PO BIDM 01/18/18 02/14/19 History donepezil [Aricept] 10 mg PO QAM 01/18/18 02/14/19 History ergocalciferol (vitamin D2) 50,000 unit PO WK 01/18/18 02/14/19 History [Vitamin D2] naproxen sodium [Aleve] 220 mg PO BID PRN 01/18/18 02/14/19 History venlafaxine [Effexor XR] 150 mg PO QAM 01/18/18 02/14/19 History memantine [Namenda XR] 28 mg PO QAM 07/24/18 02/14/19 History aspirin [Ecotrin Low Strength] 81 mg PO QAM 12/26/18 02/14/19 History venlafaxine [Effexor XR] 75 mg PO QAM 12/26/18 02/14/19 History lisinopril 2.5 mg tablet 2.5 mg PO QAM 01/26/19 02/14/19 History metoprolol tartrate 50 mg tablet 50 mg PO BIDM 01/26/19 02/14/19 History sotalol 80 mg tablet 160 mg PO BIDM tab 01/26/19 02/14/19 History loratadine 10 mg capsule 10 mg PO QAM 01/28/19 02/14/19 History lorazepam 0.5 mg tablet 0.5 mg PO TIDM PRN tab 01/28/19 02/14/19 History acetaminophen [Tylenol Extra 500 mg PO Q4H PRN MDD 3000 mg 02/14/19 02/14/19 History Strength] apixaban [Eliquis] 5 mg PO BID 02/14/19 02/14/19 History diltiazem HCl [DILT-XR] 120 mg PO QAM 02/14/19 02/14/19 History furosemide [Lasix] 20 mg PO QAM 02/14/19 02/14/19 History lisinopril [Zestril] 10 mg PO QAM 02/14/19 02/14/19 History Past Med/Surg History Medical History A-fib (Inactive) Alzheimer's dementia Anxiety Atrial fibrillation (Inactive) Bronchitis (Inactive) Dementia Depression (Acute) DVT prophylaxis Hypertensive urgency Mitral valve disease requires pre-medication prior to dental procedures Physical deconditioning (Inactive) Pulmonary edema RAD (reactive airway disease) (Inactive) Surgical History No pertinent past surgical history Family History Other Family history non-contributory Social History Preferred Language: [place]in Communication Ability: Effective 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 Beliefs That Will Affect Care: None marital status: Current Living Situation: Family and Legal Guardian Current Living Situation Comment: Shannon Mckeon current occupational status: retired Other Information That Helps Us Care for You: No Feels Safe at Home: Yes Safety Concerns: Feels Safe At This Time Smoking Status: Never smoker Hx Alcohol Use: No Hx Substance Use: No Review of Systems Review of Systems: Unobtainable due to mental health condition Physical Exam Constitutional: WD/WN, vitals as above + ill appearing and + cachectic ENMT: external ear and nose normal, oropharynx normal Neck: trachea midline, no thyromegaly Respiratory: + respiratory distress and + labored breathing Auscultation: + crackles and + wheezes Cardiovascular: Rate/Rhythm: + irregularly irregular Heart Sounds: + murmur Palpation: + palpable S3 Vessels: dorsalis pedis pulses present Extremities: + pedal edema Gastrointestinal (Abdomen): normal bowel sounds, soft, nontender, no hepatosplenomegaly Musculoskeletal: no cyanosis or clubbing, extremities motor strength 5/5 Skin: no rashes, warm and dry Neurologic: patellar DTR's 2+ bilat, sensation intact Psychiatric: A+Ox3, euthymic affect Lymphatic: no cervical or axillary lymphadenopathy Results & Data Vital Signs (Past 12 Hours) Vital Signs Temp Pulse Pulse Resp BP BP Pulse Ox 02/14/19 13:39 115 H 125/76 93 02/14/19 13:17 106 H 22 110/70 94 02/14/19 12:44 37.7 C H 124 H 20 127/77 90 02/14/19 12:17 90 02/14/19 12:15 155 H 22 125/95 91 02/14/19 12:09 110 H 27 H 122/74 90 02/14/19 11:40 86 L 12/01/19 11:31 134 H 23 147/81 H 02/14/19 11:07 38.5 C H 140 H 18 128/83 90 Code Status & VTE Plan Code Status Full code VTE Prophylaxis Plan VTE Prophylaxis will be ordered: Yes PG Care Time/CCT Total # of Minutes Spent Total Time Spent with Patient: Total time spent is greater than 50% in coordination of care (as documented) at patient's floor/unit and/or counseling patient: (1) Sepsis Sepsis acute organ dysfunction status: unspecified Sepsis type: sepsis due to unspecified organism Qualified Code(s): A41.9 - Sepsis, unspecified organism (2) HTN (hypertension) Hypertension type: unspecified Qualified Code(s): I10 - Essential (primary) hypertension
[2019-02-14] MEDS ORDERED: ACETAMINOPHEN 325 MG TAB PO PRN (16:15)
[2019-02-14] MEDS ORDERED: VANCOMYCIN CONSULT ACTIVE PRN (16:15)
[2019-02-14] MEDS ORDERED: POLYETHYLENE (MIRALAX) 17 GM PACK PO PRN (16:15)
[2019-02-14] MEDS ORDERED: ONDANSETRON INJ 2 MG/ML 2 ML VIAL IV PRN (16:15)
[2019-02-14] MEDS ORDERED: ALUMINUM/MAGNESIUM SUSP 30 ML UDC PO PRN (16:15)
[2019-02-14] MEDS ORDERED: MAGNESIUM HYDROXIDE SUSP 30 ML UDC PO PRN (16:15)
[2019-02-14] MEDS ORDERED: ALBUT/IPRATROP 3MG/0.5MG NEB 3 ML VIAL NEB PRN (16:15)
[2019-02-14] MEDS ORDERED: VANCOMYCIN HCL 2,000 MG in SODIUM CHLORIDE 0.9% 500 ML IV STA (17:00)
[2019-02-14] MEDS: BusPIRone 15 MG TAB PO SCH ×2 (17:51→21:03)
[2019-02-14] MEDS: LORazepam 0.5 MG TAB PO SCH ×2 (17:51→21:07)
--- NOTE | 2019-02-14 18:29 | Emergency Department Note ---
Entered by Marisol Brown acting as a scribe for History of Present Illness General Chief complaint: Illness Time Seen by Provider: 02/14/19 11:49 History of Present Illness Provider complaint: altered mental status Onset (ago): day(s) 2 Pain Consistency: + other (episode) Quality: + other (altered mental status) Associated symptoms: + denies other symptoms (dysuria, abdominal pain), + fever /chills and + other (not eating, drinking more than she is supposed to, taking all medications except for today, hypoxia ); no chest pain, no nausea/vomiting and no shortness of breath Treatments prior to arrival: none The patient is a 78 year old female with past medical history of Alzheimers, A- fib, and CHF who presents to the ED with complaints of an episode of altered mental status that started 2 days ago. Per daughter, the patient has not had anything to eat for 2 days. Per daughter, the patient has been drinking a lot of water even though she has a fluid restriction. The patients daughter states that she had to turn off the water in the house so that she would stop drinking so much and the patient threatened to drink out of the toilet. Per daughter, the patient had a fever yesterday. The patient denies chest pain, shortness of breath, dysuria, abdominal pain, nausea and vomiting. Per daughter, the patient has been taking all of her medications properly until today. The patient states that she is not normally on oxygen; however, nursing staff states that she was hypoxic upon arrival. The patient denies taking any medication prior to arrival. Home Medications Home Medications Medication Instructions Recorded Confirmed Type buspirone 15 mg PO TID 01/18/18 02/14/19 History docusate sodium [Colace] 100 mg PO BIDM 01/18/18 02/14/19 History donepezil [Aricept] 10 mg PO QAM 01/18/18 02/14/19 History ergocalciferol (vitamin D2) 50,000 unit PO WK 01/18/18 02/14/19 History [Vitamin D2] naproxen sodium [Aleve] 220 mg PO BID PRN 01/18/18 02/14/19 History venlafaxine [Effexor XR] 150 mg PO QAM 01/18/18 02/14/19 History memantine [Namenda XR] 28 mg PO QAM 07/24/18 02/14/19 History aspirin [Ecotrin Low Strength] 81 mg PO QAM 12/26/18 02/14/19 History venlafaxine [Effexor XR] 75 mg PO QAM 12/26/18 02/14/19 History lisinopril 2.5 mg tablet 2.5 mg PO QAM 01/26/19 02/14/19 History metoprolol tartrate 50 mg tablet 50 mg PO BIDM 01/26/19 02/14/19 History sotalol 80 mg tablet 160 mg PO BIDM tab 01/26/19 02/14/19 History loratadine 10 mg capsule 10 mg PO QAM 01/28/19 02/14/19 History lorazepam 0.5 mg tablet 0.5 mg PO TIDM PRN tab 01/28/19 02/14/19 History acetaminophen [Tylenol Extra 500 mg PO Q4H PRN MDD 3000 mg 02/14/19 02/14/19 History Strength] apixaban [Eliquis] 5 mg PO BID 02/14/19 02/14/19 History diltiazem HCl [DILT-XR] 120 mg PO QAM 02/14/19 02/14/19 History furosemide [Lasix] 20 mg PO QAM 02/14/19 02/14/19 History lisinopril [Zestril] 10 mg PO QAM 02/14/19 02/14/19 History Allergies Allergy/AdvReac Type Severity Reaction Status Date / Time Sulfa (Sulfonamide Allergy Mild Unknown Verified 02/14/19 14:32 Antibiotics) acetaminophen Allergy Unknown Unknown Verified 02/14/19 14:32 oxycodone Allergy Unknown Unknown Verified 02/14/19 14:32 Past Med/Surg History Medical History (Updated 02/14/19 @ 18:23 by Marisol Brown) A-fib (Inactive) Alzheimer's dementia Anxiety Atrial fibrillation (Inactive) Bronchitis (Inactive) Dementia Depression (Acute) DVT prophylaxis Hypertensive urgency Mitral valve disease requires pre-medication prior to dental procedures Physical deconditioning (Inactive) Pulmonary edema RAD (reactive airway disease) (Inactive) Surgical History No pertinent past surgical history Social History Preferred Language: Khmer Communication Ability: Effective 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 and A total of 10 systems reviewed and were otherwise negative Physical Exam Vital Signs Vital Signs - 24 hr 02/14/19 11:07 02/14/19 11:31 02/14/19 11:40 Temperature 38.5 C H Temperature Source Oral Pulse Rate 140 H 134 H Pulse Rate [Apical] Pulse Rate from SpO2 Sensor 146 H Pulse Rhythm Irregular Respiratory Rate 18 23 Respiratory Effort / Characteristics Non-Labored Spontaneous Respiratory Depth Normal Blood Pressure 128/83 147/81 H Blood Pressure [Left Arm] Blood Pressure Mean 98 87 Blood Pressure Mean [Left Arm] Pulse Oximetry 90 86 L Oxygen Delivery Method Nasal Cannula Nasal Cannula Oxygen Flow Rate 0 Sepsis Recent Fever Within 48 Hours Yes Sepsis Action Taken by Nursing No Action Required Oxygen Flow Rate - Titration 3 Pulse Oximetry Post Tiitration 90 02/14/19 12:09 02/14/19 12:15 02/14/19 12:17 Temperature Temperature Source Pulse Rate 110 H 155 H Pulse Rate [Apical] Pulse Rate from SpO2 Sensor 128 H 140 H Pulse Rhythm Respiratory Rate 27 H 22 Respiratory Effort / Characteristics Respiratory Depth Blood Pressure 122/74 125/95 Blood Pressure [Left Arm] Blood Pressure Mean 100 101 Blood Pressure Mean [Left Arm] Pulse Oximetry 90 91 90 Oxygen Delivery Method Nasal Cannula Nasal Cannula Nasal Cannula Oxygen Flow Rate 3 3 3 Sepsis Recent Fever Within 48 Hours Sepsis Action Taken by Nursing Oxygen Flow Rate - Titration Pulse Oximetry Post Tiitration 02/14/19 12:44 02/14/19 13:17 02/14/19 13:39 Temperature 37.7 C H Temperature Source Oral Pulse Rate Pulse Rate [Apical] 124 H 106 H 115 H Pulse Rate from SpO2 Sensor Pulse Rhythm Respiratory Rate 20 22 Respiratory Effort / Characteristics Respiratory Depth Blood Pressure Blood Pressure [Left Arm] 127/77 110/70 125/76 Blood Pressure Mean Blood Pressure Mean [Left Arm] 93 83 92 Pulse Oximetry 90 94 93 Oxygen Delivery Method Nasal Cannula Nasal Cannula Nasal Cannula Oxygen Flow Rate 3 4 3 Sepsis Recent Fever Within 48 Hours Sepsis Action Taken by Nursing Oxygen Flow Rate - Titration Pulse Oximetry Post Tiitration GENERAL: ill-appearing, sitting up in bed, disheveled, wearing nasal cannula EYE EXAM: normal conjunctiva, PERRL and EOM's grossly intact OROPHARYNX: no exudate, no erythema, lips, buccal mucosa, and tongue normal and mucous membranes are moist NECK: supple, no nuchal rigidity, no adenopathy, non-tender LUNGS: Clear to auscultation. Normal chest wall mechanics, diminished lung sounds at bases HEART: Tachycardic, irregularly irregular ABDOMEN: abdomen soft, non-tender, normo-active bowel sounds, no masses, no rebound or guarding. BACK: Back is symmetrical on inspection and there is no deformity, no midline tenderness, no CVA tenderness. SKIN: no rashes and no bruising UPPER EXTREMITIES: upper extremities are grossly normal. LOWER EXTREMITIES: No pitting edema. NEURO EXAM: Awake and alert, intermittently answering questions, cranial nerves II-XII grossly intact, normal speech, no gross weakness of arms, no gross weakness of legs. Course Course ED COURSE: Vital signs were reviewed and showed hypertension, tachycardia, fever and hypoxia. The patients medical record was reviewed The above diagnostic studies were performed and reviewed. ED treatments and interventions as stated above. 1205: The patient was evaluated in room C5. A complete history and physical examination was performed. 1311: I discussed the patient's case with Dr. Platt [facility] Hospitalist. She will evaluate the patient for further management. 1312: Upon reevaluation, the patient is feeling better. I discussed my findings with the patient and she understands and agrees with the treatment plan. Based on the patients age, coexisting illnesses, exam and lab findings the deci nic to treat as an inpatient was made. The patient remained stable while under my care. The patient will be evaluated for further management. Consultations Consultation #1: I discussed the patient's case with Dr. Platt [facility] Hospitalist. She will evaluate the patient for further management. Time: 13:11 Administered Medications Buspirone HCl (Buspar) 15 mg PO TID NOLAN Stop: 03/16/19 16:14 Last Admin: 02/14/19 17:51 Dose: Not Given Documented by: [id number] Vancomycin HCl 2,000 mg/ (Sodium Chloride) 540 mls @ 200 mls/hr IV NOW STA Stop: 02/14/19 19:41 Last Admin: 02/14/19 18:02 Dose: 200 mls/hr Documented by: [id number] Lorazepam (Ativan) 0.5 mg PO TID NOLAN Stop: 03/16/19 16:14 Last Admin: 02/14/19 17:51 Dose: Not Given Documented by: [id number] Discontinued Medications Levofloxacin/Dextrose (Levaquin/D5w) 750 mg in 150 mls @ 100 mls/hr IV Q24H NOLAN Stop: 02/28/19 12:14 Last Infusion: 02/14/19 15:16 Dose: 0 mls/hr Documented by: [id number] Admin: 02/14/19 13:16 Dose: 100 mls/hr Documented by: [id number] Ceftriaxone Sodium (Rocephin) 1,000 mg in 50 mls @ 100 mls/hr IV NOW STA Stop: 02/14/19 12:40 Last Infusion: 02/14/19 13:17 Dose: 0 mls/hr Documented by: [id number] Admin: 02/14/19 12:47 Dose: 100 mls/hr Documented by: [id number] Sodium Chloride (Nss 1000ml) 500 mls @ 999 mls/hr IV .Q31M ONE Stop: 02/14/19 14:13 Last Infusion: 02/14/19 15:27 Dose: 0 mls/hr Documented by: [id number] Admin: 02/14/19 14:05 Dose: 999 mls/hr Documented by: [id number] Ibuprofen (Advil) 400 mg PO NOW STA Stop: 02/14/19 12:15 Last Admin: 02/14/19 12:54 Dose: 400 mg Documented by: [id number] Metoprolol Tartrate (Lopressor) 2.5 mg IV NOW STA Stop: 02/14/19 13:06 Last Admin: 02/14/19 14:06 Dose: Not Given Documented by: [id number] Potassium Chloride (Klor-Con M10) 40 meq PO DAILY NOLAN Stop: 03/16/19 13:44 Last Admin: 02/14/19 14:06 Dose: 40 meq Documented by: [id number] Critical Care Time Critical Care Time: Yes Total Critical Care Time: 32 I have personally spent 32 minutes of critical care time in the direct management of this patient. This includes bedside care, interpretation of diagnostic studies, and testing, discussion with consultants, patient, and family members, and other required patient management activities. This 32 minutes is in excess of all separately billable procedures. Medical Decision Making Differential Diagnosis Differential diagnosis includes etiologies such as sepsis, UTI, pneumonia, metabolic, electrolyte abnormalities, cardiac sources, intracerebral event, toxicologic, neurologic, as well as others were entertained. Medical Records Attestation: I reviewed the patient's medical records. Home Medications Current Medication List: was personally reviewed by ri Laboratory Data Attestation: I reviewed the patient's lab results. Result diagrams: 02/14/19 12:08 02/14/19 12:08 Lab Results 02/14/19 02/14/19 02/14/19 Range/Units 11:20 12:08 12:08 WBC 10.69 (4.8-10.8) K/uL RBC 4.71 (4.2-5.4) M/uL Hgb 12.8 (12.0-16.0) g/dL Hct 39.7 (37-47) % MCV 84.3 (80-100) fL MCH 27.2 (25-34) pg MCHC 32.2 (32-36) g/dL RDW Std Deviation 50.0 H (36.4-46.3) fL RDW Coeff of Cristina 16.1 H (11.5-14.5) % Plt Count 266 (130-400) K/uL MPV 9.8 (7.4-10.4) fL Immature Gran % (Auto) 0.7 % Neut % (Auto) 89.2 % Lymph % (Auto) 5.0 % [place] % (Auto) 5.0 % Eos % (Auto) 0.0 % Baso % (Auto) 0.1 % Immature Gran # (Auto) 0.07 H (0.00-0.02) K/uL Neut # (Auto) 9.55 H (1.4-6.5) K/uL Lymph # (Auto) 0.53 L (1.2-3.4) K/uL [place] # (Auto) 0.53 (0.11-0.59) K/uL Eos # (Auto) 0.00 (0-0.5) K/uL Baso # (Auto) 0.01 (0-0.2) K/uL PT 13.0 H (9.0-12.0) Seconds INR 1.3 H (0.9-1.1) APTT 27.3 (21.0-31.0) Seconds PTT Ratio 1.0 Sodium (136-145) mmol/L Potassium (3.5-5.1) mmol/L Chloride (98-107) mmol/L Carbon Dioxide (21-32) mmol/L Anion Gap (3-11) BUN (7-18) mg/dl Creatinine (0.6-1.2) mg/dl Est Cr Clr Drug Dosing ml/min Est GFR ( Amer) Est GFR (Non-Af Amer) BUN/Creatinine Ratio (10-20) Glucose (70-99) mg/dl Lactate (0.4-2.0) mmol/L Calcium (8.5-10.1) mg/dl Total Bilirubin (0.2-1) mg/dl AST (15-37) U/L ALT (12-78) U/L Alkaline Phosphatase (45-117) U/L NT-Pro-B Natriuret Pep (0-1800) pg/ml Total Protein (6.4-8.2) gm/dl Albumin (3.4-5.0) gm/dl Globulin (2.5-4.0) gm/dl Albumin/Globulin Ratio (0.9-2) Procalcitonin (0-0.5) ng/ml TSH (0.300-4.500) uIu/ml Urine Color Yellow Urine Appearance Cloudy A (Clear) Urine pH 7.5 (4.5-7.5) Ur Specific [place] 1.015 (1.000-1.030) Urine Protein 1+ H (Negative) Urine Glucose (UA) Negative (Negative) Urine Ketones Trace H (Negative) Urine Blood 1+ H (Negative) Urine Nitrite Negative (Negative) Urine Bilirubin Negative (Negative) Urine Urobilinogen Negative (Negative) Ur Leukocyte Esterase Negative (Negative) Urine WBC (Auto) 1-5 (0-5) /hpf Urine RBC (Auto) 10-30 H (0-4) /hpf U Hyaline Cast (Auto) 1-5 (0-5) /lpf U Epithel Cells (Auto) >30 H (0-5) /lpf Urine Bacteria (Auto) Negative (Negative) 02/14/19 02/14/19 02/14/19 Range/Units 12:08 12:08 12:08 WBC (4.8-10.8) K/uL RBC (4.2-5.4) M/uL Hgb (12.0-16.0) g/dL Hct (37-47) % MCV (80-100) fL MCH (25-34) pg MCHC (32-36) g/dL RDW Std Deviation (36.4-46.3) fL RDW Coeff of Cristina (11.5-14.5) % Plt Count (130-400) K/uL MPV (7.4-10.4) fL Immature Gran % (Auto) % Neut % (Auto) % Lymph % (Auto) % [place] % (Auto) % Eos % (Auto) % Baso % (Auto) % Immature Gran # (Auto) (0.00-0.02) K/uL Neut # (Auto) (1.4-6.5) K/uL Lymph # (Auto) (1.2-3.4) K/uL [place] # (Auto) (0.11-0.59) K/uL Eos # (Auto) (0-0.5) K/uL Baso # (Auto) (0-0.2) K/uL PT (9.0-12.0) Seconds INR (0.9-1.1) APTT (21.0-31.0) Seconds PTT Ratio Sodium 138 (136-145) mmol/L Potassium 2.7 L (3.5-5.1) mmol/L Chloride 99 (98-107) mmol/L Carbon Dioxide 28 (21-32) mmol/L Anion Gap 11.0 (3-11) BUN 22 H (7-18) mg/dl Creatinine 0.80 (0.6-1.2) mg/dl Est Cr Clr Drug Dosing 63.5 ml/min Est GFR ( Amer) 81.3 Est GFR (Non-Af Amer) 70.1 BUN/Creatinine Ratio 28.0 H (10-20) Glucose 85 (70-99) mg/dl Lactate 3.3 H* (0.4-2.0) mmol/L Calcium 9.2 (8.5-10.1) mg/dl Total Bilirubin 1.3 H (0.2-1) mg/dl AST 25 (15-37) U/L ALT 26 (12-78) U/L Alkaline Phosphatase 82 (45-117) U/L NT-Pro-B Natriuret Pep 24609 H (0-1800) pg/ml Total Protein 7.3 (6.4-8.2) gm/dl Albumin 2.6 L (3.4-5.0) gm/dl Globulin 4.7 H (2.5-4.0) gm/dl Albumin/Globulin Ratio 0.6 L (0.9-2) Procalcitonin (0-0.5) ng/ml TSH 1.550 (0.300-4.500) uIu/ml Urine Color Urine Appearance (Clear) Urine pH (4.5-7.5) Ur Specific [place] (1.000-1.030) Urine Protein (Negative) Urine Glucose (UA) (Negative) Urine Ketones (Negative) Urine Blood (Negative) Urine Nitrite (Negative) Urine Bilirubin (Negative) Urine Urobilinogen (Negative) Ur Leukocyte Esterase (Negative) Urine WBC (Auto) (0-5) /hpf Urine RBC (Auto) (0-4) /hpf U Hyaline Cast (Auto) (0-5) /lpf U Epithel Cells (Auto) (0-5) /lpf Urine Bacteria (Auto) (Negative) 02/14/19 Range/Units 12:08 WBC (4.8-10.8) K/uL RBC (4.2-5.4) M/uL Hgb (12.0-16.0) g/dL Hct (37-47) % MCV (80-100) fL MCH (25-34) pg MCHC (32-36) g/dL RDW Std Deviation (36.4-46.3) fL RDW Coeff of Cristina (11.5-14.5) % Plt Count (130-400) K/uL MPV (7.4-10.4) fL Immature Gran % (Auto) % Neut % (Auto) % Lymph % (Auto) % [place] % (Auto) % Eos % (Auto) % Baso % (Auto) % Immature Gran # (Auto) (0.00-0.02) K/uL Neut # (Auto) (1.4-6.5) K/uL Lymph # (Auto) (1.2-3.4) K/uL [place] # (Auto) (0.11-0.59) K/uL Eos # (Auto) (0-0.5) K/uL Baso # (Auto) (0-0.2) K/uL PT (9.0-12.0) Seconds INR (0.9-1.1) APTT (21.0-31.0) Seconds PTT Ratio Sodium (136-145) mmol/L Potassium (3.5-5.1) mmol/L Chloride (98-107) mmol/L Carbon Dioxide (21-32) mmol/L Anion Gap (3-11) BUN (7-18) mg/dl Creatinine (0.6-1.2) mg/dl Est Cr Clr Drug Dosing ml/min Est GFR ( Amer) Est GFR (Non-Af Amer) BUN/Creatinine Ratio (10-20) Glucose (70-99) mg/dl Lactate (0.4-2.0) mmol/L Calcium (8.5-10.1) mg/dl Total Bilirubin (0.2-1) mg/dl AST (15-37) U/L ALT (12-78) U/L Alkaline Phosphatase (45-117) U/L NT-Pro-B Natriuret Pep (0-1800) pg/ml Total Protein (6.4-8.2) gm/dl Albumin (3.4-5.0) gm/dl Globulin (2.5-4.0) gm/dl Albumin/Globulin Ratio (0.9-2) Procalcitonin 2.67 H (0-0.5) ng/ml TSH (0.300-4.500) uIu/ml Urine Color Urine Appearance (Clear) Urine pH (4.5-7.5) Ur Specific [place] (1.000-1.030) Urine Protein (Negative) Urine Glucose (UA) (Negative) Urine Ketones (Negative) Urine Blood (Negative) Urine Nitrite (Negative) Urine Bilirubin (Negative) Urine Urobilinogen (Negative) Ur Leukocyte Esterase (Negative) Urine WBC (Auto) (0-5) /hpf Urine RBC (Auto) (0-4) /hpf U Hyaline Cast (Auto) (0-5) /lpf U Epithel Cells (Auto) (0-5) /lpf Urine Bacteria (Auto) (Negative) Imaging Data Radiologist's Impression: Radiology results as stated below per my review and the radiologist's interpretation: XR chest 1V portable CLINICAL HISTORY: Sepsis COMPARISON STUDY: 01/30/2019 FINDINGS: The heart is normal in size. There are bilateral left greater than right pulmonary airspace opacities. These demonstrate perihilar sparing. This pattern is classically associated with organized pneumonia and chronic eosinophilic pneumonia, and pulmonary hemorrhage in setting of pulmonary emboli.. Given the normal chest x-ray performed 01/30/2019, an atypical presentation of pulmonary edema must also be considered. An acute multifocal pneumonia could also appear similar. There is equivocal trace left pleural ef fusion IMPRESSION: 1. Bilateral left greater than right pulmonary airspace opacities. Electronically signed by: Pancho Tineo M.D. 02/14/2019 12:45 PM ECG Data Attestation: I personally reviewed and interpreted this ECG as follows: Indication: + other (sepsis) Rate (beats per minute): 138 Rhythm: + atrial fibrillation (with RVR) ECG ST segments: + ST depression (lateral leads) ECG Findings: + PVCs and + Other (poor baseline in inferior lateral leads, prolonged QTC) Blood Pressure Blood Pressure Findings: Normal blood pressure Blood Pressure Disposition: did not require urgent referral MDM Narrative Patient is a 78-year-old female who presents the ER was found to be febrile, tachycardic and hypoxic. Upon presentation pulse ox was in the mid 80s. She is placed on nasal cannula. She was found to be in A. fib with RVR. She does take a 10 a inhibitor. Labs show no significant leukocytosis or anemia. INR was appropriately slightly elevated due to 10 a inhibitor. Potassium was low at 2.7. This was repleted. Lactate was elevated 2.6. proBNP was elevated at 10,000. UA was unremarkable. Patient was given judicious bolus of IV fluids and her heart rate trended down. She was given IV broad-spectrum IV antibiotics. Chest x-ray shows pneumonia. EKG showed A. fib with RVR with ST depression throughout. Do believe that this is rate related. Patient family were updated bedside patient was admitted to the hospitalist who was initially in A. fib with RVR and heart rate in the 140s a trend down to the 110s on IV antibiotics. Impression & Plan Sepsis, Atrial fibrillation with RVR, Hypoxia Discharge Plan Visit Data *Final* Discharge Date/Time: 02/14/19 15:25 Chief Complaint: Illness ED Provider: Sunny Peres Discharge Problem: Sepsis, Atrial fibrillation with RVR, Hypoxia Patient Disposition: Admitted As Inpatient Discharge Instructions Interventions: ED Discharge Assessment Last Done: 02/14/19 15:25 Discharge Problem: Sepsis Qualifiers: Sepsis type: sepsis due to unspecified organism Sepsis acute organ dysfunction status: unspecified Qualified Code(s): A41.9 - Sepsis, unspecified organism The scribe's documentation has been prepared under my direction and personally reviewed by me in its entirety. I confirm that the note above accurately reflects all work, treatment, procedures, and medical decision making performed by me.
[2019-02-14] MEDS: APIXABAN 5 MG TABLET PO SCH (21:01)
[2019-02-14] MEDS: BUDESONIDE/FORMOTEROL FUMARATE 160/4.5 60 PUFFS/INHALER INH SCH (21:01)
[2019-02-14] MEDS: METOPROLOL TARTRATE 50 MG TAB PO SCH (21:02)
[2019-02-14] MEDS: POTASSIUM CHLORIDE 20 MEQ TABCR PO SCH (21:03)
[2019-02-14] MEDS: DOCUSATE SODIUM 100 MG CAP PO SCH (21:04)
[2019-02-14] MEDS: SOTALOL HCL 80 MG TAB PO SCH (21:04)
[2019-02-14] MEDS: CEFEPIME 2,000 MG in SYRINGE 7.5 ML IV SCH (21:07)
[2019-02-14] MEDS: metroNIDAZOLE 500 MG/100 ML BAG IV SCH (21:12)
[2019-02-15] MEDS ORDERED: FUROSEMIDE 100 MG in DEXTROSE 5% 90 ML IV SCH (00:45)
[2019-02-15] MEDS: metroNIDAZOLE 500 MG/100 ML BAG IV SCH (04:41)
[2019-02-15 06:04] LABS: Basophils # (auto) 0.01 K/uL (0-0.2); Basophils % (auto) 0.1 %; Hematocrit (blood only) 34.6 % (37-47); Immature Granulocytes # (auto) 0.07 K/uL (0.00-0.02); Immature Granulocytes % (auto) 0.4 %; Lymphocytes # (auto) 1.09 K/uL (1.2-3.4); Lymphocytes % (auto) 6.3 %; Mean Corpuscular Hemoglobin 27.2 pg (25-34); Mean Corpuscular Hgb Conc 31.8 g/dL (32-36); Mean Corpuscular Volume 85.4 fL (80-100); Mean Platelet Volume 9.6 fL (7.4-10.4); Monocytes # (auto) 1.14 K/uL (0.11-0.59); Monocytes % (auto) 6.6 %; Neutrophils # (auto) 14.88 K/uL (1.4-6.5); Neutrophils % (auto) 86.6 %; Platelet Count 223 K/uL (130-400); RDW Coefficient of Variation 16.4 % (11.5-14.5); RDW Standard Deviation 51.8 fL (36.4-46.3); Red Blood Count 4.05 M/uL (4.2-5.4); White Blood Count 17.19 K/uL (4.8-10.8)
[2019-02-15 07:00] LABS: Albumin Globulin Ratio 0.5 (0.9-2); BUN Creatinine Ratio 33.5 (10-20); Bilirubin,Total 0.9 mg/dl (0.2-1); Calcium 8.6 mg/dl (8.5-10.1); Creatinine Clr Calc Pharmacy 57.7 ml/min; Est GFR (African American) 72.4; Est GFR (Non-African American) 62.5; Globulin 4.3 gm/dl (2.5-4.0); Potassium 3.8 mmol/L (3.5-5.1); Total Protein 6.3 gm/dl (6.4-8.2)
[2019-02-15] MEDS ORDERED: DOXYCYCLINE HYCLATE 100 MG in DEXTROSE 5% 100 ML IV SCH (09:00)
[2019-02-15] MEDS ORDERED: FUROSEMIDE 20 MG in SYRINGE 0 ML IV SCH (09:00)
[2019-02-15] MEDS: APIXABAN 5 MG TABLET PO SCH ×2 (09:31→21:41)
[2019-02-15] MEDS: DOCUSATE SODIUM 100 MG CAP PO SCH ×2 (09:31→21:40)
[2019-02-15] MEDS: BusPIRone 15 MG TAB PO SCH ×3 (09:31→21:40)
[2019-02-15] MEDS: POTASSIUM CHLORIDE 20 MEQ TABCR PO SCH (09:31)
[2019-02-15] MEDS: lisinopriL 10 MG TAB PO SCH (09:31)
[2019-02-15] MEDS: LORATADINE 10 MG TAB PO SCH (09:32)
[2019-02-15] MEDS: METOPROLOL TARTRATE 50 MG TAB PO SCH ×2 (09:32→21:42)
[2019-02-15] MEDS: DONEPEZIL HCL 10 MG TAB PO SCH (09:32)
[2019-02-15] MEDS: MEMANTINE HCL 10 MG TAB PO SCH ×2 (09:33→21:41)
[2019-02-15] MEDS: VENLAFAXINE HCL XR 150 MG CAPXR PO SCH (09:33)
[2019-02-15] MEDS: VENLAFAXINE HCL XR 75 MG CAPXR PO SCH (09:33)
[2019-02-15] MEDS: SOTALOL HCL 80 MG TAB PO SCH ×2 (09:33→21:40)
[2019-02-15] MEDS: ASPIRIN 81 MG ECTAB PO SCH (09:34)
[2019-02-15] MEDS: BUDESONIDE/FORMOTEROL FUMARATE 160/4.5 60 PUFFS/INHALER INH SCH ×2 (09:42→21:42)
[2019-02-15] MEDS: CEFEPIME 2,000 MG in SYRINGE 7.5 ML IV SCH ×2 (09:44→21:49)
[2019-02-15] MEDS: LORazepam 0.5 MG TAB PO SCH ×3 (09:46→21:44)
--- NOTE | 2019-02-15 14:19 | Hospitalist Progress Note ---
Date of Service February 15, 2019 Assessment & Plan (1) Pneumonia: -patient initially received levoquin and ceftriaxone in ER for pneumonia - Hospital acquired pneumonia could not be ruled out due to her recent hospital admission and her blood culture that was positive for gram negative rods. - Patient treated with cefipime for pseudomonas coverage and flagyl for anaerobic coverage -Flagyl held once blood culture results were back -Hold Lasix for now. Patient does not show evidence of fluid overload and has been diuresed appropriately -target antibiotic therapy to organism once sensitivity results of blood culture return. (2) Hypoxia: -Continue patient on 4L of O2 via nasal canula. -Continue to monitor patients SPO2 -Continue to monitor on telemetry (3) Atrial fibrillation with RVR: - Hold blood pressure medicine except for metoprolol tartrate 50 mg p.o. daily twice daily. Hold lisinopril 12.5 mg p.o. every morning. Continue diltiazem 120 mg p.o. every morning for A. fib's. Continue sotalol 160 mg p.o. twice daily. Continue aspirin 81 mg p.o. every morning. -Continue apixaban 5mg BID for stroke and DVT prophylaxis (4) Dementia: -Continue memantine 28 mg and donepezi 10 mg Present on Admission?: Yes (5) Toxic encephalitis: (6) CHF (congestive heart failure): -Restrict fluid to 1800 ml a day. -Restrict salt intake to 2g a day. - Administer 20 mg furosemide if fluid overload worsens (7) Depression: - Continue venlafaxine 150 mg and lorazepam .5 mg TID (8) Sepsis: - Patient treated with cefipime for pseudomonas coverage and flagyl for anaerobic coverage -Flagyl held once blood culture results were back -target antibiotic therapy to organism once sensitivity results of blood culture return. Supervising Physician Co-Signing Physician Notes THIS IS A MEDICAL STUDENT NOTE PLEASE SEE MY NOTE FROM SAME DATE FOR ATTENDING NOTE THIS NOTE IS FOR LEARNING PURPOSES ONLY Subjective .78 y/o female with a history of AFib, dementia, CHF presented to the ED with daughter February 14 after 2 days confusion. The daughter stated that the patient was consuming large amounts of water and that she would not top drinking fluid and she even threatened to drink water from the toilet. Chest X-ray was positive for bilateral opacities left greater than the right. [place] 13023 yesterday to 8000 today. telemetry has shown that she has fluctuated from afib to aflutter and her heart rate was between 130 and 100 yesterday and 80-100 overnight Today she still complains of being thirsty. She does endorse dyspnea, chest pain, orthopnea or paroxysmal nocturnal dyspnea or any other complaints today. Review of Systems Constitutional: no fever, no chills, no sweats, no fatigue, no anorexia and no weight gain Ear, Nose, Mouth, Throat: no tinnitus, no dizziness, no sore throat, no hoarseness, no dysphagia and no pain with swallowing Respiratory: no cough, no dyspnea, no hemoptysis and no pain on inspiration Cardiovascular: no chest pain, no dyspnea, no orthopnea, no lightheadedness and no syncope Gastrointestinal: no abdominal pain, no nausea, no hematemesis, no dysphagia, no change in bowel habits, no change in stools, no constipation and no melena Genitourinary: no dysuria, no urinary frequency, no urinary urgency, no hematuria and no flank pain Musculoskeletal: no neck pain, no joint pain, no stiffness, no myalgia and no body aches Neurologic: no localized weakness, no paralysis, no loss of sensation, no numbness, no tremor(s), no seizure-like activity and no headache(s) Psychiatric: no depression, no change in appetite, no suicidal ideation and no visual hallucinations Physical Exam Constitutional: + ill appearing and + cachectic Eyes: PERRL, conjunctivae normal, anicteric sclerae normal visual novoa by confrontation, + anicteric sclerae and normal accommodation; no EOM movement deficit Neck: trachea midline, no thyromegaly no nuchal rigidity Respiratory: Auscultation: + crackles (postive upper and lower left lung) and + wheezes Cardiovascular: Rate/Rhythm: + tachycardic and + irregularly irregular Heart Sounds: no murmur and no cardiac rub Palpation: no thrill Gastrointestinal (Abdomen): normal bowel sounds, soft, nontender, no hepatosplenomegaly Musculoskeletal: no cyanosis or clubbing, extremities motor strength 5/5 Neurologic: patellar DTR's 2+ bilat, sensation intact CN's II-XI intact bilaterally, awake and + confused Results & Data Vital Signs (Past 12 Hours) Vital Signs Temp Pulse Resp BP Pulse Ox 02/15/19 11:51 36.8 C 100 H 18 142/68 H 96 02/15/19 07:38 36.7 C 107 H 18 139/86 95 02/15/19 04:38 36.9 C 107 H 18 127/90 98 (1) Sepsis Sepsis acute organ dysfunction status: unspecified Sepsis type: sepsis due to unspecified organism Qualified Code(s): A41.9 - Sepsis, unspecified organism (2) Pneumonia Laterality: unspecified laterality Lung location: unspecified part of lung P neumonia type: due to unspecified organism Qualified Code(s): J18.9 - Pneumonia, unspecified organism
--- NOTE | 2019-02-15 19:36 | Hospitalist Progress Note ---
Date of Service February 15, 2019 Assessment & Plan (1) Septicemia, Gram-negative: Presented with fever, acute metabolic encephalopathy, hypoxia, tachycardia, leukocytosis, found to have elevated lactate, elevated PCT now at 14, and with left sided PNA on CXR. BCxs now growing out GNR in both sets. Most likely Pulm source. No abd pain, LFTs normal, UA no sign of infection WBC count trending upward, but now afebrile, tachycardia improving -continue tele monitoring -dc Flagyl, received one dose of doxy for atypical coverage but now that BCxs growing GNRs, can narrow down to Cefepime alone -follow CBC -follow PCT in AM -check repeat BCxs (2) Pneumonia: With bilateral, L>R infiltrates on CXR, cough, fever, hypoxia, septicemia as above -treating with Cefepime for GNR PNA, could be Pseudomonas vs Klebsiella -received one dose Levaquin in ER on admission, and one dose doxy here but now both stopped. No further Vanco needed as had neg MRSA swab -continue albuterol nebs -supplemental O2 prn (3) Atrial fibrillation with RVR: With RVR secondary to sepsis and dehydration -dc IV lasix as CXR findins and clinical picture consistent with PNA and not CHF -will not give any IVFs at this time -Continue apixaban 5 mg p.o. twice daily -continue Sotalol 160 mg p.o. twice daily -continue rate control with diltiazem 120 mg p.o. every morning and metoprolol 50mg po bid -continue tele monitoring -replace lytes, follow BMP, Mag (4) Hypoxia: Secondary to PNA Continue supplemental oxygen Duo nebs every 4 hours and as needed. Continue IV antibiotics for PNA (5) Acute metabolic encephalopathy: secondary to sepsis, PNA in setting of underlying dementia (6) Alzheimer's dementia: Appears to be progressive. Continue donepezil 10 mg p.o. every morning, continue memantine 28 mg p.o. every morning if can be brought in from home as not available here (7) Failure to thrive: Patient is not gaining weight. Her appetite is poor. Placed consult for dietitian. (8) Mitral valve disease: Chronic issue, moderate on ECHO recently (9) CHF (congestive heart failure): Chronic diastolic CHF No acute failure here -dc IV lasix and hold home po lasix as she is volume depleted from sepsis as above -BP control -can raise fluid restriction to 1800mL an can allow drinks of water as per pt's only request (10) HTN (hypertension): Stable -continue metoprolol tartrate 50 mg p.o. daily twice daily -decrease lisinopril to 10 mg p.o. every morning -Continue diltiazem 120 mg p.o. every morning (11) Depression: Continue venlafaxine 225 mg p.o. every morning. (12) Anxiety: Continue lorazepam 0.5 mg p.o. at 3 times daily-confirmed this is her prescribed standing dose in PDMP website -would recommend titrating down due to advanced age and dementia--> will lower to bid for tomorrow -continue Buspar 15mg po tid (13) DVT prophylaxis: Lyndsay Ludwig-remain on PCU FULL CODE PT/OT evals placed-PT recommending acute rehab and OT recommending SNF CM involved Subjective Pt pleasantly confused today. Denies cough or SOB, denies chest pain. She is tolerating po and RN has no concerns. Pt repeatedly asks me for a drink of water. Tele with rapid atrial fibrillation since admission in the 100s-130s Review of Systems Review of Systems: All systems reviewed & are unremarkable except as noted in HPI & below Physical Exam Constitutional: average body habitus; no acute distress (sitting in bedside chair, eating lunch) Eyes: + anicteric sclerae and EOM intact bilaterally; no anisocoria and no nys tagmus ENMT: external ear and nose normal, oropharynx normal Neck: trachea midline, no thyromegaly Respiratory: normal respiratory effort; no labored breathing Auscultation: + crackles (throughout all left lung novoa); no rhonchi and no wheezes Cardiovascular: Rate/Rhythm: + tachycardic and + irregularly irregular Heart Sounds: no murmur Extremities: no edema Chest (Breasts): Chest: normal inspection of chest Gastrointestinal (Abdomen): normal bowel sounds, soft, nontender, no hepatosp lenomegaly Musculoskeletal: Extremities: extremities normal to inspection; no cyanosis and no clubbing Skin: no rashes, warm and dry Neurologic: moves all extremities and awake; no focal motor deficits Psychiatric: Orientation: alert, oriented to person and cooperative; + not oriented to place and + not oriented to time Lymphatic: no lymphedema Results & Data Vital Signs (Past 12 Hours) Vital Signs Temp Pulse Resp BP Pulse Ox 02/15/19 16:01 37.2 C 88 18 140/63 96 02/15/19 11:51 36.8 C 100 H 18 142/68 H 96 02/15/19 07:38 36.7 C 107 H 18 139/86 95 Laboratory Results 02/15/19 02/15/19 Range/Units 05:50 05:50 WBC 17.19 H (4.8-10.8) K/uL RBC 4.05 L (4.2-5.4) M/uL Hgb 11.0 L (12.0-16.0) g/dL Hct 34.6 L (37-47) % MCV 85.4 (80-100) fL MCH 27.2 (25-34) pg MCHC 31.8 L (32-36) g/dL RDW Std Deviation 51.8 H (36.4-46.3) fL RDW Coeff of Cristina 16.4 H (11.5-14.5) % Plt Count 223 (130-400) K/uL MPV 9.6 (7.4-10.4) fL Immature Gran % (Auto) 0.4 % Neut % (Auto) 86.6 % Lymph % (Auto) 6.3 % Gillespie % (Auto) 6.6 % Eos % (Auto) 0.0 % Baso % (Auto) 0.1 % Immature Gran # (Auto) 0.07 H (0.00-0.02) K/uL Neut # (Auto) 14.88 H (1.4-6.5) K/uL Lymph # (Auto) 1.09 L (1.2-3.4) K/uL Gillespie # (Auto) 1.14 H (0.11-0.59) K/uL Eos # (Auto) 0.00 (0-0.5) K/uL Baso # (Auto) 0.01 (0-0.2) K/uL Sodium 139 (136-145) mmol/L Potassium 3.8 D (3.5-5.1) mmol/L Chloride 104 (98-107) mmol/L Carbon Dioxide 26 (21-32) mmol/L Anion Gap 9.0 (3-11) BUN 30 H (7-18) mg/dl Creatinine 0.88 (0.6-1.2) mg/dl Est Cr Clr Drug Dosing 57.7 ml/min Est GFR ( Amer) 72.4 Est GFR (Non-Af Amer) 62.5 BUN/Creatinine Ratio 33.5 H (10-20) Glucose 100 H (70-99) mg/dl Calcium 8.6 (8.5-10.1) mg/dl Total Bilirubin 0.9 (0.2-1) mg/dl AST 21 (15-37) U/L ALT 17 (12-78) U/L Alkaline Phosphatase 63 (45-117) U/L NT-Pro-B Natriuret Pep 8056 H (0-1800) pg/ml Total Protein 6.3 L (6.4-8.2) gm/dl Albumin 2.0 L (3.4-5.0) gm/dl Globulin 4.3 H (2.5-4.0) gm/dl Albumin/Globulin Ratio 0.5 L (0.9-2) BCxs 2/2 with GNR PG Care Time/CCT Total # of Minutes Spent Total Time Spent with Patient: Total time spent is greater than 50% in coordination of care (as documented) at patient's floor/unit and/or counseling patient: (1) HTN (hypertension) Hypertension type: unspecified Qualified Code(s): I10 - Essential (primary) hypertension (2) Pneumonia Laterality: unspecified laterality Lung location: unspecified part of lung Pneumonia type: due to unspecified organism Qualified Code(s): J18.9 - Pneumonia, unspecified organism
[2019-02-16 06:25] LABS: Basophils # (auto) 0.02 K/uL (0-0.2); Basophils % (auto) 0.1 %; Eosinophils % (auto) 0.6 %; Hematocrit (blood only) 34.5 % (37-47); Hemoglobin 11.3 g/dL (12.0-16.0); Immature Granulocytes % (auto) 0.6 %; Lymphocytes # (auto) 1.48 K/uL (1.2-3.4); Lymphocytes % (auto) 8.4 %; Mean Corpuscular Hemoglobin 27.2 pg (25-34); Mean Corpuscular Hgb Conc 32.8 g/dL (32-36); Mean Corpuscular Volume 83.1 fL (80-100); Mean Platelet Volume 10.2 fL (7.4-10.4); Monocytes # (auto) 1.12 K/uL (0.11-0.59); Monocytes % (auto) 6.4 %; Neutrophils # (auto) 14.76 K/uL (1.4-6.5); Neutrophils % (auto) 83.9 %; Platelet Count 246 K/uL (130-400); RDW Coefficient of Variation 16.1 % (11.5-14.5); Red Blood Count 4.15 M/uL (4.2-5.4); White Blood Count 17.58 K/uL (4.8-10.8)
[2019-02-16 07:06] LABS: Calcium 9.2 mg/dl (8.5-10.1); Creatinine Clr Calc Pharmacy 76.2 ml/min; Est GFR (African American) 96.9; Est GFR (Non-African American) 83.6; Magnesium 1.8 mg/dl (1.8-2.4); Potassium 3.8 mmol/L (3.5-5.1)
[2019-02-16] MEDS ORDERED: POTASSIUM CHLORIDE 20 MEQ TABCR PO STA (08:15)
[2019-02-16] MEDS ORDERED: MAGNESIUM SULFATE / D5W 1 GM/100 ML BAG IV STA (08:29)
[2019-02-16] MEDS ORDERED: SODIUM CHLORIDE 0.9% 500 ML IV SCH (08:30)
--- NOTE | 2019-02-16 09:56 | Hospitalist Progress Note ---
Date of Service February 16, 2019 Assessment & Plan (1) Pneumonia: -patient initially received levoquin and ceftriaxone in ER for pneumonia - Hospital acquired pneumonia could not be ruled out due to her recent hospital admission and her blood culture that was positive for gram negative rods. - Continue to treat with cefipime for pseudomonas coverage and flagyl for anaerobic coverage -Flagyl held once blood culture results were back -Hold Lasix for now. Patient does not show evidence of fluid overload and has been diuresed appropriately -target antibiotic therapy to organism once sensitivity results of blood culture return. (2) Hypoxia: -Continue patient on 2L of O2 via nasal canula. -Continue to monitor patients SPO2 -Continue to monitor on telemetry (3) Atrial fibrillation with RVR: - Continue metoprolol tartrate 50 mg p.o. daily twice daily. Continue diltiazem 120 mg p.o. every morning for A. fib's. Continue sotalol 160 mg p.o. twice daily. Continue aspirin 81 mg p.o. every morning. -Continue apixaban 5mg BID for stroke and DVT prophylaxis (4) Dementia: -Continue memantine 28 mg and donepezil 10 mg (5) CHF (congestive heart failure): -Restrict fluid to 1800 ml a day. -Restrict salt intake to 2g a day adn recommend DASH diet. -Continue to monitor I/O's - Administer 20 mg furosemide if fluid overload worsens (6) Depression: - Continue venlafaxine 150 mg and lorazepam .5 mg TID (7) HTN (hypertension): - Continue metoprolol tartrate 50 mg p.o. daily twice daily. - Consider restarting lisinopril 2.5 mg PO QAM. (8) Hyponatremia: - hyponatremia Subjective 78 y/o female with a history of AFib, dementia, CHF presented to the ED with daughter February 14 after 2 days confusion. The daughter stated that the patient was consuming large amounts of water and that she would not top drinking fluid and she even threatened to drink water from the toilet. Chest X-ray was positive for bilateral opacities left greater than the right. She is now on day 2 of her hospital admission. She is confused and continues to tell me that she is thirsty. She says she has been coughing and feels that congestion in her chest but she is not bothered by it much. She does not endorse dyspnea, chest pain, orthopnea or paroxysmal nocturnal dyspnea or any other complaints today. Review of Systems 2 Constitutional: no fever, no chills, no sweats, no body aches, no weakness and no anorexia Eyes: no diplopia, no eye pain, no loss of peripheral vision and no worsening vision Ear, Nose, Mouth, Throat: no tinnitus, no dizziness, no sore throat and no dysphagia Respiratory: + cough; no dyspnea, no hemoptysis, no pain with cough and no stopping breathing during sleep Cardiovascular: no chest pain, no dyspnea, no dyspnea at rest, no paroxysmal nocturnal dyspnea and no lightheadedness Gastrointestinal: no abdominal pain, no nausea, no vomiting, no hematemesis, no change in stools, no constipation and no blood in stools Genitourinary: no dysuria and no hematuria Musculoskeletal: no neck pain, no stiffness and no muscle weakness Neurologic: no numbness, no radiating pain, no abnormal movements, no dizziness and no syncope Psychiatric: no depression, no suicidal ideation and no hallucinations Physical Exam Physical Exam: Patient still looks frail and cachectic but appears to be feeling better today. Eyes: PERRL, conjunctivae normal, anicteric sclerae normal visual novoa by confrontation, + anicteric sclerae and normal accommodation; no EOM movement deficit Neck: trachea midline, no thyromegaly no nuchal rigidity Respiratory: Auscultation: + crackles (left lung lower lobe) and + wheezes (BL) Cardiovascular: Rate/Rhythm: + tachycardic and + irregularly irregular Heart Sounds: no murmur and no cardiac rub Palpation: no thrill Vessels: no JVD and no carotid bruit Extremities: no pedal edema and no edema Gastrointestinal (Abdomen): normal bowel sounds, soft, nontender, no hepatosplenomegaly Musculoskeletal: no cyanosis or clubbing, extremities motor strength 5/5 Neurologic: patellar DTR's 2+ bilat, sensation intact CN's II-XI intact bilaterally, awake and + confused Results & Data Vital Signs (Past 12 Hours) Vital Signs Temp Pulse Resp BP Pulse Ox 02/16/19 07:45 36.9 C 118 H 18 145/99 H 97 02/16/19 03:30 37 C 122 H 18 120/89 97 02/15/19 23:16 36.6 C 88 20 98 (1) HTN (hypertension) Hypertension type: unspecified Qualified Code(s): I10 - Essential (primary) hypertension (2) Pneumonia Laterality: unspecified laterality Lung location: unspecified part of lung Pneumonia type: due to unspecified organism Qualified Code(s): J18.9 - Pneumonia, unspecified organism
[2019-02-16] MEDS: METOPROLOL TARTRATE 25 MG TAB PO SCH ×2 (10:23→20:12)
[2019-02-16] MEDS: VENLAFAXINE HCL XR 150 MG CAPXR PO SCH (10:24)
[2019-02-16] MEDS: DOCUSATE SODIUM 100 MG CAP PO SCH ×2 (10:24→20:13)
[2019-02-16] MEDS: DONEPEZIL HCL 10 MG TAB PO SCH (10:24)
[2019-02-16] MEDS: MEMANTINE HCL 10 MG TAB PO SCH ×2 (10:24→20:12)
[2019-02-16] MEDS: APIXABAN 5 MG TABLET PO SCH ×2 (10:24→20:13)
[2019-02-16] MEDS: SOTALOL HCL 80 MG TAB PO SCH ×2 (10:24→20:13)
[2019-02-16] MEDS: BusPIRone 15 MG TAB PO SCH ×3 (10:24→20:12)
[2019-02-16] MEDS: LORATADINE 10 MG TAB PO SCH (10:25)
[2019-02-16] MEDS: ASPIRIN 81 MG ECTAB PO SCH (10:25)
[2019-02-16] MEDS: VENLAFAXINE HCL XR 75 MG CAPXR PO SCH (10:25)
[2019-02-16] MEDS: BUDESONIDE/FORMOTEROL FUMARATE 160/4.5 60 PUFFS/INHALER INH SCH ×2 (10:26→20:14)
[2019-02-16] MEDS: LORazepam 0.5 MG TAB PO SCH ×2 (11:05→20:11)
[2019-02-16] MEDS: CEFEPIME 2,000 MG in SYRINGE 7.5 ML IV SCH ×2 (11:05→20:11)
[2019-02-16] MEDS: lisinopriL 10 MG TAB PO SCH (11:05)
--- NOTE | 2019-02-16 12:40 | Medical Student Progress Note ---
Date of Service February 16, 2019 Assessment & Plan (1) Pneumonia: -patient initially received levoquin and ceftriaxone in ER for pneumonia - Hospital acquired pneumonia could not be ruled out due to her recent hospital admission and her blood culture that was positive for gram negative rods. - Continue to treat with cefipime for pseudomonas coverage and flagyl for anaerobic coverage -Flagyl held once blood culture results were back -Hold Lasix for now. Patient does not show evidence of fluid overload and has been diuresed appropriately -target antibiotic therapy to organism once sensitivity results of blood culture return. -Increase cefipime to 2000 mg Q8hrs for pseudomonas coverage Laterality: unspecified laterality Lung location: unspecified part of lung Pneumonia type: due to unspecified organism Qualified Code(s): J18.9 - Pneumonia, unspecified organism (2) Hypoxia: -Continue patient on 2L of O2 via nasal canula. -Continue to monitor patients SPO2 -Continue to monitor on telemetry (3) Atrial fibrillation with RVR: - Continue metoprolol tartrate 50 mg p.o. twice daily. Continue diltiazem 120 mg p.o. every morning for A. fib's. Continue sotalol 160 mg p.o. twice daily. Continue aspirin 81 mg p.o. every morning. -Continue apixaban 5mg BID for stroke and DVT prophylaxis -Continue to monitor patient on telemetry (4) Dementia: -Continue memantine 28 mg and donepezil 10 mg -Titrate down patients lorazepam .5mcg TID. This could be contributing to patients confusion and increases her risk of a fall. (5) CHF (congestive heart failure): -Restrict fluid to 1800 ml a day. -Restrict salt intake to 2g a day and recommend DASH diet. -Continue to monitor I/O's -Continue lisinopril 10 mg -Continue metroprolol 50mg BID - Administer 20 mg furosemide if fluid overload worsens (6) Depression: - Continue venlafaxine 150 mg and lorazepam .5 mg TID (7) HTN (hypertension): - Continue metoprolol tartrate 50 mg p.o. daily twice daily. - Consider lisinopril 10 mg PO QAM. -Continue diltiazem 120 mg p.o. every morning Hypertension type: unspecified Qualified Code(s): I10 - Essential (primary) hypertension (8) Hyponatremia: - measure urine sodium -measure urine osmolarity -hyponatremia likely secondary to volume depletion based on clinical features of tachycardia and the use of lasix - Administer 100 ml isotonic normal saline (9) Acute metabolic encephalopathy: -patient initially received levoquin and ceftriaxone in ER for pneumonia - Hospital acquired pneumonia could not be ruled out due to her recent hospital admission and her blood culture that was positive for gram negative rods. - Continue to treat with cefipime for pseudomonas coverage and flagyl for anaerobic coverage -Flagyl held once blood culture results were back -Hold Lasix for now. Patient does not show evidence of fluid overload and has been diuresed appropriately -target antibiotic therapy to organism once sensitivity results of blood culture return. -Increase cefipime to 2000 mg Q8hrs for pseudomonas coverage Subjective 78 y/o female with a history of AFib, dementia, CHF presented to the ED with daughter February 14 after 2 days confusion. The daughter stated that the patient was consuming large amounts of water and that she would not top drinking fluid and she even threatened to drink water from the toilet. Chest X-ray was positive for bilateral opacities left greater than the right. She is now on day 2 of her hospital admission. She is confused and continues to tell me that she is thirsty. She says she has been coughing and feels that congestion in her chest but she is not bothered by it much. She does not endorse dyspnea, chest pain, orthopnea or paroxysmal nocturnal dyspnea or any other complaints today. Review of Systems Respiratory: + cough; no dyspnea, no hemoptysis, no pain with cough and no stopping breathing during sleep Physical Exam Constitutional: + ill appearing and + cachectic Eyes: PERRL, conjunctivae normal, anicteric sclerae normal visual novoa by confrontation, + anicteric sclerae and normal accommodation; no EOM movement deficit Neck: trachea midline, no thyromegaly no nuchal rigidity Respiratory: Auscultation: + crackles (left lung lower lobe) and + wheezes (BL) Cardiovascular: Rate/Rhythm: + tachycardic and + irregularly irregular Heart Sounds: no murmur and no cardiac rub Palpation: no thrill Vessels: no JVD and no carotid bruit Extremities: no pedal edema and no edema Gastrointestinal (Abdomen): normal bowel sounds, soft, nontender, no hepatosplenomegaly Musculoskeletal: no cyanosis or clubbing, extremities motor strength 5/5 Neurologic: patellar DTR's 2+ bilat, sensation intact CN's II-XI intact bilaterally, awake and + confused Results & Data Vital Signs (Past 12 Hours) Vital Signs Temp Pulse Resp BP Pulse Ox 02/16/19 07:45 36.9 C 118 H 18 145/99 H 97 02/16/19 03:30 37 C 122 H 18 120/89 97
--- NOTE | 2019-02-16 16:04 | Hospitalist Progress Note ---
Date of Service February 16, 2019 Assessment & Plan (1) Septicemia, Gram-negative: Presented with fever, acute metabolic encephalopathy, hypoxia, tachycardia, leukocytosis, found to have elevated lactate, elevated PCT at 14, and with left sided PNA on CXR. BCxs now growing out GNR in both sets. Most likely Pulm source. No abd pain, LFTs normal, UA no sign of infection WBC count high but stable at 17k, remains afebrile, tachycardia improving PCT trending downward Repeat BCxs NGTD-will follow -continue tele monitoring -continue Cefepime but increase dosing today as per Pharmacy for Pseudomonas dosing-would complete 14 days of abx but convert to po abx if possible after ID and sensitivities result -follow CBC (2) Pneumonia: With bilateral, L>R infiltrates on CXR, cough, fever, hypoxia, septicemia as above -treating with Cefepime for GNR PNA, could be Pseudomonas vs Klebsiella -received one dose Levaquin in ER on admission, and one dose doxy here but now both stopped. No further Vanco needed as had neg MRSA swab -continue albuterol nebs -supplemental O2 prn -follow CXR to resolution (3) Hyponatremia: With worsening hyponatremia throughout the day despite IVF volume resuscitation for suspected hypovolemia. Ur Na+ and Ur Osm ordered but not yet collected/resulted. Does appear euvolemic at this point, could be SIADH in setting of pneumonia TSH normal, doubt renal insufficiency -will dc all IVFs again -give lasix 20mg IV x 1 -follow serial BMP -f/u on urine studies when available (4) Atrial fibrillation with RVR: With RVR secondary to sepsis and dehydration initially -was given IV lasix on admission for suspected acute CHF, however this was stopped as she seemed dehydrated clinically -rates remain high--> gave 500mL bolus and increased metoprolol to 75mg po bid -Continue apixaban 5 mg p.o. twice daily -continue Sotalol 160 mg p.o. twice daily -continue rate control with diltiazem 120 mg p.o. every morning and metoprolol as above at increased dose -continue tele monitoring -replace lytes, follow BMP, Mag (5) Hypoxia: Secondary to PNA Continue supplemental oxygen Duo nebs every 4 hours and as needed. Continue IV antibiotics for PNA (6) Acute metabolic encephalopathy: secondary to sepsis, PNA in setting of underlying dementia (7) CHF (congestive heart failure): Chronic diastolic CHF--> with possible acute exacerbation given worsening hyponatremia, weight is now up -will give one dose of IV lasix 20mg x 1 now for hyponatremia -continue to hold home po lasix -BP control -will decrease fluid restriction to 1500mL (8) Depression: Continue venlafaxine 225 mg p.o. every morning. (9) Alzheimer's dementia: Appears to be progressive. Continue donepezil 10 mg p.o. every morning, continue memantine 28 mg p.o. every morning if can be brought in from home as not available here (10) Failure to thrive: Patient is not gaining weight. Her appetite is poor. Placed consult for dietitian. (11) Anxiety: Continue lorazepam 0.5 mg p.o. at 3 times daily-confirmed this is her prescribed standing dose in PDMP website -recommend titrating down due to advanced age and dementia--> have since lowered ativan to bid -watch for signs of withdrawal -continue Buspar 15mg po tid (12) HTN (hypertension): Stable -continue metoprolol tartrate but increased dose to 75 mg p.o. daily twice daily -decreased lisinopril to 10 mg p.o. every morning for simplification of dosing -Continue diltiazem 120 mg p.o. every morning (13) Mitral valve disease: Chronic issue, moderate on ECHO recently (14) DVT prophylaxis: Lyndsay Dispo-remain on PCU FULL CODE PT/OT evals placed-PT recommending acute rehab and OT recommending SNF CM involved Subjective Remains pleasantly confused. Denies cough but then can't stop coughing while talking to me. Denies SOB or CP. Denies nausea or abd pain. She is eating and drinking. Tele with rapid atrial fibrillation, rates 100-140s at times Review of Systems Review of Systems: Unobtainable due to cognitive status Physical Exam Constitutional: average body habitus; no acute distress (lying in bed, awake, alert) Eyes: + anicteric sclerae ENMT: external ear and nose normal, oropharynx normal Neck: trachea midline, no thyromegaly Respiratory: normal respiratory effort; no labored breathing Auscultation: + wheezes (faint exp wheezes bilat upper lung novoa); no crackles and no rhonchi Cardiovascular: Rate/Rhythm: + tachycardic and + irregularly irregular Heart Sounds: no murmur Extremities: no edema Chest (Breasts): Chest: normal inspection of chest Gastrointestinal (Abdomen): normal bowel sounds, soft, nontender, no hepatosplenomegaly Musculoskeletal: Extremities: extremities normal to inspection; no cyanosis and no clubbing Skin: no rashes, warm and dry Neurologic: moves all extremities and awake; no focal motor deficits Psychiatric: Orientation: alert, oriented to person and cooperative; + not oriented to place and + not oriented to time Lymphatic: no lymphedema Results & Data Vital Signs (Past 12 Hours) Vital Signs Temp Pulse Resp BP BP Pulse Ox 02/16/19 11:20 37.1 C 111 H 20 128/84 96 02/16/19 07:45 36.9 C 118 H 18 145/99 H 97 Laboratory Results 02/16/19 02/16/19 02/16/19 Range/Units 16:24 05:59 05:59 WBC (4.8-10.8) K/uL RBC (4.2-5.4) M/uL Hgb (12.0-16.0) g/dL Hct (37-47) % MCV (80-100) fL MCH (25-34) pg MCHC (32-36) g/dL RDW Std Deviation (36.4-46.3) fL RDW Coeff of Cristina (11.5-14.5) % Plt Count (130-400) K/uL MPV (7.4-10.4) fL Immature Gran % (Auto) % Neut % (Auto) % Lymph % (Auto) % Hand % (Auto) % Eos % (Auto) % Baso % (Auto) % Immature Gran # (Auto) (0.00-0.02) K/uL Neut # (Auto) (1.4-6.5) K/uL Lymph # (Auto) (1.2-3.4) K/uL Hand # (Auto) (0.11-0.59) K/uL Eos # (Auto) (0-0.5) K/uL Baso # (Auto) (0-0.2) K/uL Sodium 127 L 130 L D (136-145) mmol/L Potassium 4.3 3.8 (3.5-5.1) mmol/L Chloride 98 97 L (98-107) mmol/L Carbon Dioxide 21 25 (21-32) mmol/L Anion Gap 8.0 8.0 (3-11) BUN 26 H 27 H (7-18) mg/dl Creatinine 0.83 0.67 (0.6-1.2) mg/dl Est Cr Clr Drug Dosing 61.5 76.2 ml/min Est GFR ( Amer) 77.7 96.9 Est GFR (Non-Af Amer) 67.1 83.6 BUN/Creatinine Ratio 31.3 H 40.0 H (10-20) Glucose 92 87 (70-99) mg/dl Calcium 9.4 9.2 (8.5-10.1) mg/dl Magnesium 1.8 (1.8-2.4) mg/dl Procalcitonin 7.85 H (0-0.5) ng/ml 02/16/19 Range/Units 05:59 WBC 17.58 H (4.8-10.8) K/uL RBC 4.15 L (4.2-5.4) M/uL Hgb 11.3 L (12.0-16.0) g/dL Hct 34.5 L (37-47) % MCV 83.1 (80-100) fL MCH 27.2 (25-34) pg MCHC 32.8 (32-36) g/dL RDW Std Deviation 49.0 H (36.4-46.3) fL RDW Coeff of Cristina 16.1 H (11.5-14.5) % Plt Count 246 (130-400) K/uL MPV 10.2 (7.4-10.4) fL Immature Gran % (Auto) 0.6 % Neut % (Auto) 83.9 % Lymph % (Auto) 8.4 % Hand % (Auto) 6.4 % Eos % (Auto) 0.6 % Baso % (Auto) 0.1 % Immature Gran # (Auto) 0.10 H (0.00-0.02) K/uL Neut # (Auto) 14.76 H (1.4-6.5) K/uL Lymph # (Auto) 1.48 (1.2-3.4) K/uL Hand # (Auto) 1.12 H (0.11-0.59) K/uL Eos # (Auto) 0.10 (0-0.5) K/uL Baso # (Auto) 0.02 (0-0.2) K/uL Sodium (136-145) mmol/L Potassium (3.5-5.1) mmol/L Chloride (98-107) mmol/L Carbon Dioxide (21-32) mmol/L Anion Gap (3-11) BUN (7-18) mg/dl Creatinine (0.6-1.2) mg/dl Est Cr Clr Drug Dosing ml/min Est GFR ( Amer) Est GFR (Non-Af Amer) BUN/Creatinine Ratio (10-20) Glucose (70-99) mg/dl Calcium (8.5-10.1) mg/dl Magnesium (1.8-2.4) mg/dl Procalcitonin (0-0.5) ng/ml PG Care Time/CCT Total # of Minutes Spent Total Time Spent with Patient: Total time spent is greater than 50% in coordination of care (as documented) at patient's floor/unit and/or counseling patient: (1) HTN (hypertension) Hypertension type: unspecified Qualified Code(s): I10 - Essential (primary) hypertension (2) Pneumonia Laterality: unspecified laterality Lung location: unspecified part of lung Pneumonia type: due to unspecified organism Qualified Code(s): J18.9 - Pneumonia, unspecified organism
[2019-02-16 16:56] LABS: BUN Creatinine Ratio 31.3 (10-20); Calcium 9.4 mg/dl (8.5-10.1); Creatinine Clr Calc Pharmacy 61.5 ml/min; Est GFR (African American) 77.7; Est GFR (Non-African American) 67.1; Potassium 4.3 mmol/L (3.5-5.1)
[2019-02-16] MEDS ORDERED: FUROSEMIDE 20 MG in SYRINGE 0 ML IV ONE (23:18)
[2019-02-17] MEDS: CEFEPIME 2,000 MG in SYRINGE 7.5 ML IV SCH (04:37)
[2019-02-17 06:46] LABS: Basophils # (auto) 0.04 K/uL (0-0.2); Basophils % (auto) 0.2 %; Eosinophils # (auto) 0.22 K/uL (0-0.5); Eosinophils % (auto) 1.2 %; Hematocrit (blood only) 37.9 % (37-47); Hemoglobin 12.4 g/dL (12.0-16.0); Immature Granulocytes # (auto) 0.23 K/uL (0.00-0.02); Immature Granulocytes % (auto) 1.2 %; Lymphocytes # (auto) 1.27 K/uL (1.2-3.4); Lymphocytes % (auto) 6.7 %; Mean Corpuscular Hemoglobin 27.4 pg (25-34); Mean Corpuscular Hgb Conc 32.7 g/dL (32-36); Mean Corpuscular Volume 83.7 fL (80-100); Mean Platelet Volume 9.9 fL (7.4-10.4); Monocytes # (auto) 1.38 K/uL (0.11-0.59); Monocytes % (auto) 7.2 %; Neutrophils # (auto) 15.92 K/uL (1.4-6.5); Neutrophils % (auto) 83.5 %; Platelet Count 262 K/uL (130-400); RDW Coefficient of Variation 16.2 % (11.5-14.5); RDW Standard Deviation 49.4 fL (36.4-46.3); Red Blood Count 4.53 M/uL (4.2-5.4); White Blood Count 19.06 K/uL (4.8-10.8)
[2019-02-17 07:21] LABS: BUN Creatinine Ratio 32.4 (10-20); Calcium 9.4 mg/dl (8.5-10.1); Creatinine Clr Calc Pharmacy 68.9 ml/min; Est GFR (African American) 87.9; Est GFR (Non-African American) 75.8; Magnesium 1.9 mg/dl (1.8-2.4); Potassium 3.7 mmol/L (3.5-5.1)
[2019-02-17] MEDS: LORATADINE 10 MG TAB PO SCH (08:07)
[2019-02-17] MEDS: LORazepam 0.5 MG TAB PO SCH ×2 (08:07→20:12)
[2019-02-17] MEDS: SOTALOL HCL 80 MG TAB PO SCH ×2 (08:08→20:12)
[2019-02-17] MEDS: VENLAFAXINE HCL XR 150 MG CAPXR PO SCH (08:08)
[2019-02-17] MEDS: VENLAFAXINE HCL XR 75 MG CAPXR PO SCH (08:08)
[2019-02-17] MEDS: ASPIRIN 81 MG ECTAB PO SCH (08:08)
[2019-02-17] MEDS: lisinopriL 10 MG TAB PO SCH (08:08)
[2019-02-17] MEDS: METOPROLOL TARTRATE 25 MG TAB PO SCH (08:09)
[2019-02-17] MEDS: BusPIRone 15 MG TAB PO SCH ×3 (08:09→20:12)
[2019-02-17] MEDS: MEMANTINE HCL 10 MG TAB PO SCH ×2 (08:10→20:13)
[2019-02-17] MEDS: APIXABAN 5 MG TABLET PO SCH ×2 (08:10→20:13)
[2019-02-17] MEDS: BUDESONIDE/FORMOTEROL FUMARATE 160/4.5 60 PUFFS/INHALER INH SCH ×2 (08:12→20:12)
[2019-02-17] MEDS ORDERED: ERGOCALCIFEROL 50,000 UNITS CAP PO SCH (09:00)
[2019-02-17] MEDS ORDERED: SODIUM CHLORIDE 1 GM TABLET PO ONE (09:45)
[2019-02-17] MEDS ORDERED: METOPROLOL TARTRATE 25 MG TAB PO ONE (09:45)
--- NOTE | 2019-02-17 10:12 | Medical Student Progress Note ---
Date of Service February 17, 2019 Assessment & Plan (1) Pneumonia: -patient initially received levoquin and ceftriaxone in ER for pneumonia - Hospital acquired pneumonia could not be ruled out due to her recent hospital admission and her blood culture that was positive for gram negative rods. - Continue to treat with cefipime for pseudomonas coverage and flagyl for anaerobic coverage -Flagyl held once blood culture results were back -target antibiotic therapy to organism once sensitivity results of blood culture return. -Continue cefipime to 2000 mg Q8hrs for pseudomonas coverage Laterality: unspecified laterality Lung location: unspecified part of lung Pneumonia type: due to unspecified organism Qualified Code(s): J18.9 - Pneumonia, unspecified organism (2) Hypoxia: -Continue patient on 2L of O2 via nasal canula. -Continue to monitor patients SPO2 -Continue to monitor on telemetry (3) Atrial fibrillation with RVR: - Continue metoprolol tartrate 50 mg p.o. twice daily. Continue diltiazem 120 mg p.o. every morning for A. fib's. Continue sotalol 160 mg p.o. twice daily. Continue aspirin 81 mg p.o. every morning. -Continue apixaban 5mg BID for stroke and DVT prophylaxis -Continue to monitor patient on telemetry -Patient had consult with cardiology today. (4) Dementia: -Continue memantine 28 mg and donepezil 10 mg -Titrate down patients lorazepam .5mcg TID. This could be contributing to patien ts confusion and increases her risk of a fall. (5) CHF (congestive heart failure): -Restrict fluid to 1500 ml a day. -Restrict salt intake to 2g a day and recommend DASH diet. -Continue to monitor I/O's -Continue lisinopril 10 mg -Continue metroprolol 50mg BID - Administer 20 mg furosemide if fluid overload worsens (6) Depression: - Continue venlafaxine 150 mg - Try to taper lorazepam .5 mg TID down (7) HTN (hypertension): - Continue metoprolol tartrate 50 mg p.o. daily twice daily. - Consider lisinopril 10 mg PO QAM. -Continue diltiazem 120 mg p.o. every morning Hypertension type: unspecified Qualified Code(s): I10 - Essential (primary) hypertension (8) Hyponatremia: - Sodium levels have increased form yesterday. Patient still hyponatremic -Patients hyponatremia could potentially be secondary to SIADH. Patients fluid restricted from 4777-5212 ml. -measure urine osmolarity -measure urine sodium (9) Acute metabolic encephalopathy: -patient initially received levoquin and ceftriaxone in ER for pneumonia - Hospital acquired pneumonia could not be ruled out due to her recent hospital admission and her blood culture that was positive for gram negative rods. - Continue to treat with cefipime for pseudomonas coverage and flagyl for anaerobic coverage -Flagyl held once blood culture results were back -Hold Lasix for now. Patient does not show evidence of fluid overload and has been diuresed appropriately -target antibiotic therapy to organism once sensitivity results of blood culture return. -Increase cefipime to 2000 mg Q8hrs for pseudomonas coverage (10) DVT prophylaxis: -Continue apixaban 5mg PO BID. Subjective 78 y/o female with a history of paroxysmal AFib, dementia, CHF presented to the ED with daughter February 14 after 2 days confusion. The daughter stated that the patient was consuming large amounts of water and that she would not top drinking fluid and she even threatened to drink water from the toilet. Chest X- ray was positive for bilateral opacities left greater than the right. She is now on day 3 of her hospital admission. She says that she is feeling better today. Her appetite has been good and she has been eating. She says she has not gotten out of bed to try to walk around since her hospital admission and does not know is she has any dyspnea on exertion. She has a dull headache 1/10 pain and says that it is not a concern. She does not endorse dyspnea, chest pain, orthopnea or paroxysmal nocturnal dyspnea or any other complaints today. Review of Systems Review of Systems: All systems reviewed & are unremarkable except as noted in HPI & below Constitutional: no fever, no chills, no sweats, no body aches, no malaise and no weakness Eyes: no diplopia and no worsening vision Ear, Nose, Mouth, Throat: no dizziness, no dry mouth, no dysphagia and no pain with swallowing Respiratory: + cough; no dyspnea, no hemoptysis, no pain with cough and no stopping breathing during sleep Cardiovascular: no chest pain, no chest pain at rest, no dyspnea at rest, no paroxysmal nocturnal dyspnea and no syncope Gastrointestinal: no abdominal pain, no nausea, no vomiting, no change in bowel habits, no change in stools, no diarrhea/loose stools and no melena Genitourinary: no dysuria, no urinary frequency and no hematuria Musculoskeletal: no radicular pain, no stiffness and no muscle weakness Neurologic: no localized weakness, no loss of sensation, no tingling, no numbness and no syncope Physical Exam Physical Exam: Patients mentation seems much improved today. She is orientated to person place and time. memory impairment still evident. Constitutional: healthy appearing and cooperative Eyes: PERRL, conjunctivae normal, anicteric sclerae normal accommodation and EOM intact bilaterally ENMT: Mouth: oral mucous membranes not dry Neck: trachea midline, no thyromegaly Respiratory: normal respiratory effort, lungs clear to auscultation Cardiovascular: Rate/Rhythm: + tachycardic and + irregularly irregular Hear t Sounds: no gallop, no murmur and no cardiac rub Palpation: no thrill and no heave Vessels: dorsalis pedis pulses present and radial pulses present; no JVD and no carotid bruit Extremities: + edema (1+ edema Bl lowe leg from foot to mid calf) Gastrointestinal (Abdomen): normal bowel sounds, soft, nontender, no hepatosplenomegaly Neurologic: patellar DTR's 2+ bilat, sensation intact and PERRL, EOMI, accommodation nl, no face palsy, no dysarthria CN's II-XI intact bilaterally and moves all extremities Results & Data Vital Signs (Past 12 Hours) Vital Signs Temp Pulse Pulse Resp BP BP Pulse Ox 02/17/19 07:54 36.9 C 105 H 21 164/113 H 97 02/17/19 02:30 36.9 C 77 20 149/90 H 97 02/16/19 23:35 88 02/16/19 23:05 37 C 88 20 162/88 H 97
[2019-02-17] MEDS: DOCUSATE SODIUM 100 MG CAP PO SCH ×2 (10:54→20:13)
[2019-02-17] MEDS: DONEPEZIL HCL 10 MG TAB PO SCH (10:54)
--- NOTE | 2019-02-17 11:44 | Hospitalist Progress Note ---
Date of Service February 17, 2019 Assessment & Plan (1) Septicemia, Gram-negative: Presented with fever, acute metabolic encephalopathy, hypoxia, tachycardia, leukocytosis, found to have elevated lactate, elevated PCT at 14, and with left sided PNA on CXR. BCxs now growing out Haemophilus influenzae beta lactamase negative in both sets. Most likely Pulm source. No abd pain, LFTs normal, UA no sign of infection WBC count increased today to 19 K for unknown reason, continues to remain afe brile, tachycardia now resolved PCT trended downward Repeat BCxs NGTD-will follow -continue tele monitoring -Change cefepime to narrow down to ceftriaxone given the Haemophilus influenzae- would complete 14 days of abx but convert to po abx-likely Augmentin -follow CBC (2) Pneumonia: With bilateral, L>R infiltrates on CXR, cough, fever, hypoxia, septicemia as above -treating with cefepime and now will transition to ceftriaxone as above for Haemophilus influenzae PNA -received one dose Levaquin in ER on admission, and one dose doxy here but now both stopped. No further Vanco needed as had neg MRSA swab -continue albuterol nebs -supplemental O2 prn -follow CXR to resolution (3) Hyponatremia: With worsening hyponatremia despite IVF volume resuscitation for suspected hypovolemia initially-was given IV Lasix and decreased her fluid restriction and now with improvement up to 131 today. Ur Na+ and Ur Osm finally collected and are elevated, consistent with SIADH Does appear euvolemic at this point, likely SIADH in setting of pneumonia TSH normal, doubt renal insufficiency -Give NaCl 1 g p.o. x1 today -follow BMP in the morning (4) Atrial fibrillation with RVR: With RVR secondary to sepsis and dehydration initially -was given IV lasix on admission for suspected acute CHF, however this was stopped as she seemed dehydrated clinically -rates remained high--> gave 500mL bolus and increased metoprolol to 75mg po bid and rates continue to remain high -Today we will increase metoprolol to 100 mg p.o. twice daily -Continue apixaban 5 mg p.o. twice daily -continue Sotalol 160 mg p.o. twice daily -continue diltiazem 120 mg p.o. once daily -continue tele monitoring -replace lytes, follow BMP, Mag as needed (5) Hypoxia: Secondary to PNA, continues Continue supplemental oxygen Duo nebs every 4 hours and as needed. Continue IV antibiotics for PNA (6) Acute metabolic encephalopathy: secondary to sepsis, PNA in setting of underlying dementia Is improving today (7) CHF (congestive heart failure): Chronic diastolic CHF--> with possible acute exacerbation given worsening hyponatremia, weight is now up -Received one dose of IV lasix 20mg x 1 on 02/16 and hyponatremia improved -We will restart home po lasix tomorrow morning -BP control -Continue fluid restriction of 1500mL (8) Depression: Continue venlafaxine 225 mg p.o. every morning. (9) Alzheimer's dementia: Appears to be progressive. Continue donepezil 10 mg p.o. every morning, continue memantine 28 mg p.o. every morning if can be brought in from home as not available here (10) Failure to thrive: Patient is not gaining weight. Her appetite is poor. Placed consult for dietitian. (11) Anxiety: Continue lorazepam 0.5 mg p.o. at 3 times daily-confirmed this is her prescribed standing dose in PDMP website -recommend titrating down due to advanced age and dementia--> have since lowered ativan to bid -watch for signs of withdrawal -continue Buspar 15mg po tid (12) HTN (hypertension): Blood pressures elevated -Increase metoprolol tartrate to 100 mg p.o. daily twice daily -decreased lisinopril to 10 mg p.o. every morning for simplification of dosing (down from 12.5 mg daily) -Continue diltiazem 120 mg p.o. every morning -Restarting home Lasix 20 mg daily (13) Mitral valve disease: Chronic issue, moderate on ECHO recently (14) DVT prophylaxis: Lyndsay Dispo-remain on PCU FULL CODE PT/OT evals placed-PT recommending acute rehab and OT recommending SNF CM involved-referrals placed May be ready for discharge in the next 1 to 2 days Subjective Patient is a little less confused today, more alert and answering questions appropriately. Still a bit forgetful at times. Reports some mild cough, no shortness of breath. Denies chest pain or palpitations. Denies nausea. She is eating well. Denies abdominal pain. Telemetry with atrial fibrillation with improved rate control with rates in the 70s to 110s Review of Systems Review of Systems: All systems reviewed & are unremarkable except as noted in HPI & below Physical Exam Constitutional: average body habitus; no acute distress (Sitting in chair) Eyes: + anicteric sclerae Neck: trachea midline, no thyromegaly Respiratory: normal respiratory effort; no labored breathing Auscultation: + crackles (At left lower and middle lung novoa); no rhonchi and no wheezes Cardiovascular: Rate/Rhythm: regular rate and + irregularly irregular Heart Sounds: no murmur Extremities: no edema Chest (Breasts): Chest: normal inspection of chest Gastrointestinal (Abdomen): normal bowel sounds, soft, nontender, no hepatosplenomegaly Musculoskeletal: Extremities: extremities normal to inspection; no cyanosis and no clubbing Skin: no rashes, warm and dry Neurologic: moves all extremities and awake; no focal motor deficits Psychiatric: Orientation: alert, oriented to person, oriented to place (knows she is in the hospital), oriented to time (Knows the year is 2019, but does not know the month and date) and cooperative Results & Data Vital Signs (Past 12 Hours) Vital Signs Temp Pulse Resp BP BP Pulse Ox 02/17/19 11:00 36.6 C 68 17 126/64 99 02/17/19 07:54 36.9 C 105 H 21 164/113 H 97 02/17/19 02:30 36.9 C 77 20 149/90 H 97 Laboratory Results 02/17/19 02/17/19 02/16/19 Range/Units 06:24 06:24 23:40 WBC 19.06 H (4.8-10.8) K/uL RBC 4.53 (4.2-5.4) M/uL Hgb 12.4 (12.0-16.0) g/dL Hct 37.9 (37-47) % MCV 83.7 (80-100) fL MCH 27.4 (25-34) pg MCHC 32.7 (32-36) g/dL RDW Std Deviation 49.4 H (36.4-46.3) fL RDW Coeff of Cristina 16.2 H (11.5-14.5) % Plt Count 262 (130-400) K/uL MPV 9.9 (7.4-10.4) fL Immature Gran % (Auto) 1.2 % Neut % (Auto) 83.5 % Lymph % (Auto) 6.7 % [place] % (Auto) 7.2 % Eos % (Auto) 1.2 % Baso % (Auto) 0.2 % Immature Gran # (Auto) 0.23 H (0.00-0.02) K/uL Neut # (Auto) 15.92 H (1.4-6.5) K/uL Lymph # (Auto) 1.27 (1.2-3.4) K/uL [place] # (Auto) 1.38 H (0.11-0.59) K/uL Eos # (Auto) 0.22 (0-0.5) K/uL Baso # (Auto) 0.04 (0-0.2) K/uL Sodium 131 L (136-145) mmol/L Potassium 3.7 (3.5-5.1) mmol/L Chloride 98 (98-107) mmol/L Carbon Dioxide 26 (21-32) mmol/L Anion Gap 7.0 (3-11) BUN 24 H (7-18) mg/dl Creatinine 0.75 (0.6-1.2) mg/dl Est Cr Clr Drug Dosing 68.9 ml/min Est GFR ( Amer) 87.9 Est GFR (Non-Af Amer) 75.8 BUN/Creatinine Ratio 32.4 H (10-20) Glucose 103 H (70-99) mg/dl Calcium 9.4 (8.5-10.1) mg/dl Magnesium 1.9 (1.8-2.4) mg/dl Urine Osmolality (500-800) mOsm/kg Ur Random Sodium 78 mmol/L 02/16/19 Range/Units 23:40 WBC (4.8-10.8) K/uL RBC (4.2-5.4) M/uL Hgb (12.0-16.0) g/dL Hct (37-47) % MCV (80-100) fL MCH (25-34) pg MCHC (32-36) g/dL RDW Std Deviation (36.4-46.3) fL RDW Coeff of Cristina (11.5-14.5) % Plt Count (130-400) K/uL MPV (7.4-10.4) fL Immature Gran % (Auto) % Neut % (Auto) % Lymph % (Auto) % [place] % (Auto) % Eos % (Auto) % Baso % (Auto) % Immature Gran # (Auto) (0.00-0.02) K/uL Neut # (Auto) (1.4-6.5) K/uL Lymph # (Auto) (1.2-3.4) K/uL [place] # (Auto) (0.11-0.59) K/uL Eos # (Auto) (0-0.5) K/uL Baso # (Auto) (0-0.2) K/uL Sodium (136-145) mmol/L Potassium (3.5-5.1) mmol/L Chloride (98-107) mmol/L Carbon Dioxide (21-32) mmol/L Anion Gap (3-11) BUN (7-18) mg/dl Creatinine (0.6-1.2) mg/dl Est Cr Clr Drug Dosing ml/min Est GFR ( Amer) Est GFR (Non-Af Amer) BUN/Creatinine Ratio (10-20) Glucose (70-99) mg/dl Calcium (8.5-10.1) mg/dl Magnesium (1.8-2.4) mg/dl Urine Osmolality 659 (500-800) mOsm/kg Ur Random Sodium mmol/L PG Care Time/CCT Total # of Minutes Spent Total Time Spent with Patient: Total time spent is greater than 50% in coordination of care (as documented) at patient's floor/unit and/or counseling patient: (1) HTN (hypertension) Hypertension type: unspecified Qualified Code(s): I10 - Essential (primary) hypertension (2) Pneumonia Laterality: unspecified laterality Lung location: unspecified part of lung Pneumonia type: due to unspecified organism Qualified Code(s): J18.9 - Pneumonia, unspecified organism
[2019-02-17] MEDS: cefTRIAXone SODIUM 2,000 MG in DEXTROSE 5% 50 ML IV SCH (11:55)
[2019-02-17] MEDS: METOPROLOL TARTRATE 100 MG TAB PO SCH (20:12)
[2019-02-18 06:50] LABS: Basophils # (auto) 0.03 K/uL (0-0.2); Basophils % (auto) 0.2 %; Eosinophils # (auto) 0.32 K/uL (0-0.5); Eosinophils % (auto) 2.3 %; Hematocrit (blood only) 31.9 % (37-47); Hemoglobin 10.4 g/dL (12.0-16.0); Immature Granulocytes # (auto) 0.54 K/uL (0.00-0.02); Lymphocytes # (auto) 1.45 K/uL (1.2-3.4); Lymphocytes % (auto) 10.6 %; Mean Corpuscular Hemoglobin 26.9 pg (25-34); Mean Corpuscular Hgb Conc 32.6 g/dL (32-36); Mean Corpuscular Volume 82.4 fL (80-100); Monocytes # (auto) 1.77 K/uL (0.11-0.59); Neutrophils # (auto) 9.52 K/uL (1.4-6.5); Neutrophils % (auto) 69.9 %; Platelet Count 233 K/uL (130-400); RDW Coefficient of Variation 16.3 % (11.5-14.5); RDW Standard Deviation 49.3 fL (36.4-46.3); Red Blood Count 3.87 M/uL (4.2-5.4); White Blood Count 13.63 K/uL (4.8-10.8)
[2019-02-18 07:23] LABS: BUN Creatinine Ratio 34.7 (10-20); Calcium 8.8 mg/dl (8.5-10.1); Creatinine Clr Calc Pharmacy 88.9 ml/min; Est GFR (African American) 102.2; Est GFR (Non-African American) 88.2; Magnesium 1.8 mg/dl (1.8-2.4); Potassium 3.6 mmol/L (3.5-5.1)
[2019-02-18] MEDS: FUROSEMIDE 20 MG TAB PO SCH (07:48)
[2019-02-18] MEDS: DONEPEZIL HCL 10 MG TAB PO SCH (07:48)
[2019-02-18] MEDS: LORazepam 0.5 MG TAB PO SCH ×2 (07:48→20:30)
[2019-02-18] MEDS: MEMANTINE HCL 10 MG TAB PO SCH ×2 (07:49→20:33)
[2019-02-18] MEDS: SOTALOL HCL 80 MG TAB PO SCH ×2 (07:50→20:31)
[2019-02-18] MEDS: APIXABAN 5 MG TABLET PO SCH ×2 (07:51→20:33)
[2019-02-18] MEDS: ASPIRIN 81 MG ECTAB PO SCH (07:51)
[2019-02-18] MEDS: LORATADINE 10 MG TAB PO SCH (07:53)
[2019-02-18] MEDS: lisinopriL 10 MG TAB PO SCH (07:53)
[2019-02-18] MEDS: VENLAFAXINE HCL XR 150 MG CAPXR PO SCH (07:53)
[2019-02-18] MEDS: DOCUSATE SODIUM 100 MG CAP PO SCH ×2 (07:54→20:32)
[2019-02-18] MEDS: METOPROLOL TARTRATE 100 MG TAB PO SCH ×2 (07:54→20:32)
[2019-02-18] MEDS: BUDESONIDE/FORMOTEROL FUMARATE 160/4.5 60 PUFFS/INHALER INH SCH ×2 (07:54→20:34)
[2019-02-18] MEDS: VENLAFAXINE HCL XR 75 MG CAPXR PO SCH (07:54)
[2019-02-18] MEDS: BusPIRone 15 MG TAB PO SCH ×3 (07:55→20:31)
[2019-02-18] MEDS: SODIUM CHLORIDE 1 GM TABLET PO SCH ×2 (09:48→20:33)
--- NOTE | 2019-02-18 09:56 | Medical Student Progress Note ---
Date of Service February 18, 2019 Assessment & Plan (1) Pneumonia: -patient initially received levoquin and ceftriaxone in ER for pneumonia - Hospital acquired pneumonia could not be ruled out due to her recent hospital admission and her blood culture that was positive for gram negative rods. - Treated with cefipime for pseudomonas coverage and flagyl for anaerobic coverage -Flagyl held once blood culture results showed no anaerobic growth -Blood cultures were both positive for H influenza beta lactamase negative -H influenzae bacteriemia likely secondary to pneumonia -narrow antibiotic coverage from cefipime to ceftiraxone 2 G Q24 hrs -Continue antibiotic coverage for 14 days. Will likely switch to oral augmentin on discharge. Laterality: unspecified laterality Lung location: unspecified part of lung Pneumonia type: due to unspecified organism Qualified Code(s): J18.9 - Pneumonia, unspecified organism (2) Hypoxia: -Patients oxygenation has been good and is much improved since hospital admission -Take off of telemetry (3) Atrial fibrillation with RVR: - Continue metoprolol tartrate 100 mg p.o. twice daily. Continue diltiazem 120 mg p.o. every morning for A. fib's. Continue sotalol 160 mg p.o. twice daily. Continue aspirin 81 mg p.o. every morning. -Continue apixaban 5mg BID for stroke and DVT prophylaxis -Heart rate has been well controlled in 70's80's -Take off of telemetry -Follow up with cardiology in 4 months. (4) Dementia: -Continue memantine 28 mg and donepezil 10 mg -Titrate down patients lorazepam .5mcg TID. This could be contributing to patients confusion and increases her risk of a fall. (5) CHF (congestive heart failure): -Restrict fluid to 1500 ml a day. -Restrict salt intake to 2g a day and recommend DASH diet. -Continue to monitor I/O's -Continue lisinopril 10 mg -Continue metroprolol 50mg BID - Administer 20 mg furosemide if fluid overload worsens (6) Depression: - Continue venlafaxine 150 mg - Try to taper lorazepam .5 mg TID down (7) HTN (hypertension): - Continue metoprolol tartrate 100 mg p.o. daily twice daily. - Consider lisinopril 10 mg PO QAM. -Continue diltiazem 120 mg p.o. 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 Continue with fluid restriction at rehab (9) Acute metabolic encephalopathy: -patient initially received levoquin and ceftriaxone in ER for pneumonia - Hospital acquired pneumonia could not be ruled out due to her recent hospital admission and her blood culture that was positive for gram negative rods. - Continue to treat with cefipime for pseudomonas coverage and flagyl for anaerobic coverage -Flagyl held once blood culture results were back -Hold Lasix for now. Patient does not show evidence of fluid overload and has been diuresed appropriately -Continue Ceftriaxone 2g Q24hrs (10) DVT prophylaxis: -Continue apixaban 5mg PO BID. Subjective 78 y/o female with a history of paroxysmal AFib, dementia, CHF presented to the ED with daughter February 14 after 2 days confusion. The daughter stated that the patient was consuming large amounts of water and that she would not top drinking fluid and she even threatened to drink water from the toilet. Chest X- ray was positive for bilateral opacities left greater than the right. She is now on day 4 of her hospital admission. She says that she is feeling all right. Her appetite has been good and she has been eating. She says she has not gotten out of bed to try to walk around since her hospital admission and does not know is she has any dyspnea on exertion. She does not have any concerns. She does not endorse dyspnea, chest pain, orthopnea or paroxysmal nocturnal dyspnea or any other complaints today. Review of Systems Constitutional: no fever, no chills and no fatigue Eyes: no worsening vision Ear, Nose, Mouth, Throat: no dysphagia and no pain with swallowing Respiratory: + cough; no dyspnea, no hemoptysis, no pain with cough and no stopping breathing during sleep Cardiovascular: no chest pain, no chest pain at rest and no palpitations Gastrointestinal: no abdominal pain, no nausea, no vomiting and no dysphagia Genitourinary: no dysuria and no hematuria Musculoskeletal: no neck pain, no radicular pain, no stiffness and no muscle weakness Physical Exam Constitutional: healthy appearing and cooperative Eyes: PERRL, conjunctivae normal, anicteric sclerae normal accommodation and EOM intact bilaterally ENMT: Mouth: oral mucous membranes not dry Neck: trachea midline, no thyromegaly Respiratory: Auscultation: + crackles (left lower lobe) Cardiovascular: Rate/Rhythm: + tachycardic and + irregularly irregular Heart Sounds: no gallop, no murmur and no cardiac rub Palpation: no thrill and no heave Vessels: dorsalis pedis pulses present and radial pulses p resent; no JVD and no carotid bruit Extremities: + edema (1+ edema Bl lowe leg from foot to mid calf) Gastrointestinal (Abdomen): normal bowel sounds, soft, nontender, no hepatosplenomegaly Neurologic: patellar DTR's 2+ bilat, sensation intact and PERRL, EOMI, accommodation nl, no face palsy, no dysarthria CN's II-XI intact bilaterally and moves all extremities Results & Data Vital Signs (Past 12 Hours) Vital Signs Temp Pulse Resp BP Pulse Ox 02/18/19 07:34 36.5 C 115 H 20 142/92 H 97 02/18/19 04:13 36.9 C 105 H 20 136/109 H 96 02/17/19 23:58 37 C 96 H 20 119/92 98
[2019-02-18] MEDS: cefTRIAXone SODIUM 2,000 MG in DEXTROSE 5% 50 ML IV SCH (11:18)
--- NOTE | 2019-02-18 14:22 | Hospitalist Progress Note ---
Date of Service February 18, 2019 Assessment & Plan (1) Septicemia, Gram-negative: Presented with fever, acute metabolic encephalopathy, hypoxia, tachycardia, leukocytosis, found to have elevated lactate, elevated PCT at 14, and with left sided PNA on CXR. BCxs now growing out Haemophilus influenzae beta lactamase negative in both sets. Repeat cultures remain no growth Most likely Pulm source. No abd pain, LFTs normal, UA no sign of infection WBC count increased 19 K for unknown reason yesterday, now back down again to 13, continues to remain afebrile, tachycardia now resolved PCT trended downward Repeat BCxs NGTD-will continue to follow -Changed cefepime to narrow down to ceftriaxone given the Haemophilus influenzae-would complete 14 days of abx but convert to po abx-likely Augmentin -follow CBC (2) Pneumonia: With bilateral, L>R infiltrates on CXR, cough, fever, hypoxia, septicemia as above -treated with cefepime and then transitioned to ceftriaxone as above for Haemophilus influenzae PNA -received one dose Levaquin in ER on admission, and one dose doxy here but now both stopped. No further Vanco needed as had neg MRSA swab -continue albuterol nebs -supplemental O2 prn -follow CXR to resolution-we will obtain in the morning (3) Hyponatremia: With worsening hyponatremia despite IVF volume resuscitation for suspected hypovolemia initially-was given IV Lasix and decreased her fluid restriction and now with improvement and stability at 131 today. Ur Na+ and Ur Osm finally collected and are elevated, consistent with SIADH Does appear euvolemic at this point, likely SIADH in setting of pneumonia Apparently, perhaps due to dementia, patient does inclined to have polydipsia although that is being controlled here in the hospital TSH normal, doubt renal insufficiency -Continue NaCl 1 g p.o. twice daily -follow BMP in the morning (4) Atrial fibrillation with RVR: With RVR secondary to sepsis and dehydration initially Rates remained high despite IV fluids -Rates are now controlled with increased dose of increase metoprolol to 100 mg p.o. twice daily -Continue apixaban 5 mg p.o. twice daily -continue Sotalol 160 mg p.o. twice daily -continue diltiazem 120 mg p.o. once daily Stable to transfer off telemetry -replace lytes, follow BMP, Mag as needed (5) Hypoxia: Secondary to PNA, continues Continue supplemental oxygen Duo nebs every 4 hours and as needed. Continue IV antibiotics for PNA -Add flutter valve (6) Acute metabolic encephalopathy: secondary to sepsis, PNA in setting of underlying dementia Is much improved since admission (7) CHF (congestive heart failure): Chronic diastolic CHF--> with possible acute exacerbation given worsening hyponatremia, weight is now up since admission but down slightly from yesterday -Received one dose of IV lasix 20mg x 1 on 02/16 and hyponatremia improved -Continue home po lasix 20 mg daily -BP control -Continue fluid restriction of 1500mL (8) Depression: Continue venlafaxine 225 mg p.o. every morning. (9) Alzheimer's dementia: Appears to be progressive. Continue donepezil 10 mg p.o. every morning, continue memantine 28 mg p.o. every morning if can be brought in from home as not available here (10) Failure to thrive: Appetite is improving Appreciate dietary consult (11) Anxiety: Continue lorazepam 0.5 mg p.o. at 3 times daily-confirmed this is her prescribed standing dose in PDMP website -recommend titrating down due to advanced age and dementia--> have since lowered ativan to bid -watch for signs of withdrawal -continue Buspar 15mg po tid (12) HTN (hypertension): Blood pressures elevated but now better controlled with increased dose of metoprolol -Continue metoprolol tartrate 100 mg p.o. daily twice daily -decreased lisinopril to 10 mg p.o. every morning for simplification of dosing (down from 12.5 mg daily) -Continue diltiazem 120 mg p.o. every morning -Continue Lasix 20 mg daily (13) Mitral valve disease: Chronic issue, moderate on ECHO recently (14) DVT prophylaxis: Eliquis Dispo-stable for downgrade to medical floor FULL CODE PT/OT evals placed-PT recommending acute rehab and OT recommending SNF CM involved-referrals placed May be ready for discharge tomorrow Subjective Feeling well, has a cough still. No chest pain or shortness of breath. No abdominal pain or nausea. No diarrhea. She is eating well. Telemetry with A. fib with rates in the 70s to low 100s at the [place]. Review of Systems Review of Systems: All systems reviewed & are unremarkable except as noted in HPI & below Physical Exam Constitutional: average body habitus; no acute distress (Sitting in chair) Eyes: + anicteric sclerae Neck: trachea midline, no thyromegaly Respiratory: normal respiratory effort; no labored breathing Auscultation: + crackles (At left lower and middle lung novoa); no rhonchi and no wheezes Cardiovascular: Rate/Rhythm: regular rate and + irregularly irregular Heart Sounds: no murmur Extremities: no edema Chest (Breasts): Chest: normal inspection of chest Gastrointestinal (Abdomen): normal bowel sounds, soft, nontender, no hepatosplenomegaly Musculoskeletal: Extremities: extremities normal to inspection; no cyanosis and no clubbing Skin: no rashes, warm and dry Neurologic: moves all extremities and awake; no focal motor deficits Psychiatric: Orientation: alert, oriented to person, oriented to place (knows she is in the hospital), oriented to time (Knows the year is 2019, but does not know the month and date) and cooperative Lymphatic: no lymphedema Results & Data Vital Signs (Past 12 Hours) Vital Signs Temp Pulse Resp BP Pulse Ox 02/18/19 11:15 37.2 C 77 18 122/59 L 98 02/18/19 07:34 36.5 C 115 H 20 142/92 H 97 02/18/19 04:13 36.9 C 105 H 20 136/109 H 96 Laboratory Results Labs reviewed PG Care Time/CCT Total # of Minutes Spent Total Time Spent with Patient: Total time spent is greater than 50% in coordination of care (as documented) at patient's floor/unit and/or counseling patient: (1) HTN (hypertension) Hypertension type: unspecified Qualified Code(s): I10 - Essential (primary) hypertension (2) Pneumonia Laterality: unspecified laterality Lung location: unspecified part of lung Pneumonia type: due to unspecified organism Qualified Code(s): J18.9 - Pneumonia, unspecified organism
[2019-02-19 06:10] LABS: Hemoglobin 11.5 g/dL (12.0-16.0); Mean Corpuscular Hemoglobin 26.7 pg (25-34); Mean Corpuscular Hgb Conc 31.9 g/dL (32-36); Mean Corpuscular Volume 83.7 fL (80-100); Platelet Count 290 K/uL (130-400); RDW Coefficient of Variation 16.2 % (11.5-14.5); RDW Standard Deviation 49.3 fL (36.4-46.3); White Blood Count 16.05 K/uL (4.8-10.8)
[2019-02-19 06:41] LABS: Basophils # (auto) 0.09 K/uL (0-0.2); Basophils % (auto) 0.6 %; Eosinophils # (auto) 0.42 K/uL (0-0.5); Eosinophils % (auto) 2.6 %; Immature Granulocytes # (auto) 1.04 K/uL (0.00-0.02); Immature Granulocytes % (auto) 6.5 %; Lymphocytes # (auto) 2.16 K/uL (1.2-3.4); Lymphocytes % (auto) 13.5 %; Monocytes # (auto) 2.41 K/uL (0.11-0.59); Neutrophils # (auto) 9.93 K/uL (1.4-6.5); Neutrophils % (auto) 61.8 %; RBC Morphology Unremarkable
[2019-02-19 07:56] LABS: Albumin Level 1.8 gm/dl (3.4-5.0); BUN Creatinine Ratio 24.5 (10-20); Creatinine Clr Calc Pharmacy 79.2 ml/min; Est GFR (African American) 98.4; Est GFR (Non-African American) 84.9; Potassium 3.7 mmol/L (3.5-5.1)
[2019-02-19 07:59] LABS: Albumin Globulin Ratio 0.3 (0.9-2); Bilirubin,Total 0.4 mg/dl (0.2-1); Globulin 5.2 gm/dl (2.5-4.0)
--- NOTE | 2019-02-19 08:34 | XRay Report ---
XR chest 1V portable CLINICAL HISTORY: f/u pneumonia pneumonitis COMPARISON STUDY: 02/14/2019 FINDINGS: Similar consolidative infiltrate left hemithorax. Interval development of a slight increase in left basilar pleural fluid. Parenchymal infiltrate right base is improved. IMPRESSION: 1. Improving right basilar parenchymal infiltrate. 2. Persistent left hemithoracic infiltrate with a slight increase in left pleural fluid. The above report was generated using voice recognition software. It may contain grammatical, syntax or spelling errors. Electronically signed by: Karthik Gomez M.D. 02/19/2019 8:32 AM
--- NOTE | 2019-02-19 09:04 | Medical Student Progress Note ---
Date of Service February 19, 2019 Assessment & Plan (1) Pneumonia: With bilateral, L>R infiltrates on CXR, cough, fever, hypoxia, septicemia as above -treated with cefepime and then transitioned to ceftriaxone as above for Haemophilus influenzae PNA -received one dose Levaquin in ER on admission, and one dose doxy here but now both stopped. No further Vanco needed as had neg MRSA swab -continue albuterol nebs -supplemental O2 prn -follow CXR to resolution-we will obtain in the morning Laterality: unspecified laterality Lung location: unspecified part of lung Pneumonia type: due to unspecified organism Qualified Code(s): J18.9 - Pneumonia, unspecified organism (2) Hypoxia: -Patients oxygenation has been good and is much improved since hospital admission -Take off of telemetry (3) Atrial fibrillation with RVR: - Continue metoprolol tartrate 100 mg p.o. twice daily. Continue diltiazem 120 mg p.o. every morning for A. fib's. Continue sotalol 160 mg p.o. twice daily. Continue aspirin 81 mg p.o. every morning. -Continue apixaban 5mg BID for stroke and DVT prophylaxis -Heart rate has been well controlled in 70's80's -Take off of telemetry -Follow up with cardiology in 4 months. (4) Dementia: -Continue memantine 28 mg and donepezil 10 mg -Titrate down patients lorazepam .5mcg TID. This could be contributing to patients confusion and increases her risk of a fall. (5) CHF (congestive heart failure): Chronic diastolic CHF--> with possible acute exacerbation given worsening hyponatremia, weight is now up since admission but down slightly from yesterday -Received one dose of IV lasix 20mg x 1 on 02/16 and hyponatremia improved -Continue home po lasix 20 mg daily -BP control -Continue fluid restriction of 1500mL (6) Depression: Continue venlafaxine 225 mg p.o. every morning. (7) HTN (hypertension): Blood pressures elevated but now better controlled with increased dose of metoprolol -Continue metoprolol tartrate 100 mg p.o. daily twice daily -decreased lisinopril to 10 mg p.o. every morning for simplification of dosing (down from 12.5 mg daily) -Continue diltiazem 120 mg p.o. every morning -Continue Lasix 20 mg daily Hypertension type: unspecified Qualified Code(s): I10 - Essential (primary) hypertension (8) Hyponatremia: With worsening hyponatremia despite IVF volume resuscitation for suspected hypovolemia initially-was given IV Lasix and decreased her fluid restriction and now with improvement and stability at 131 today. Ur Na+ and Ur Osm finally collected and are elevated, consistent with SIADH Does appear euvolemic at this point, likely SIADH in setting of pneumonia Apparently, perhaps due to dementia, patient does inclined to have polydipsia although that is being controlled here in the hospital TSH normal, doubt renal insufficiency -Continue NaCl 1 g p.o. twice daily -follow BMP in the morning (9) Acute metabolic encephalopathy: secondary to sepsis, PNA in setting of underlying dementia Is much improved since admission (10) DVT prophylaxis: Inezquida Dispo-stable for downgrade to medical floor FULL CODE PT/OT evals placed-PT recommending acute rehab and OT recommending SNF CM involved-referrals placed May be ready for discharge tomorrow (11) Septicemia, Gram-negative: Presented with fever, acute metabolic encephalopathy, hypoxia, tachycardia, leukocytosis, found to have elevated lactate, elevated PCT at 14, and with left sided PNA on CXR. BCxs now growing out Haemophilus influenzae beta lactamase negative in both sets. Repeat cultures remain no growth Most likely Pulm source. No abd pain, LFTs normal, UA no sign of infection WBC count increased 19 K for unknown reason yesterday, now back down again to 13, continues to remain afebrile, tachycardia now resolved PCT trended downward Repeat BCxs NGTD-will continue to follow -Changed cefepime to narrow down to ceftriaxone given the Haemophilus influenzae-would complete 14 days of abx but convert to po abx-likely Augmentin -follow CBC (12) Alzheimer's dementia: Appears to be progressive. Continue donepezil 10 mg p.o. every morning, continue memantine 28 mg p.o. every morning if can be brought in from home as not available here (13) Failure to thrive: Appetite is improving Appreciate dietary consult (14) Anxiety: Continue lorazepam 0.5 mg p.o. at 3 times daily-confirmed this is her prescribed standing dose in PDMP website -recommend titrating down due to advanced age and dementia--> have since lowered ativan to bid -watch for signs of withdrawal -continue Buspar 15mg po tid (15) Mitral valve disease: Chronic issue, moderate on ECHO recently Subjective 78 y/o female with a history of paroxysmal AFib, dementia, CHF presented to the ED with daughter February 14 after 2 days confusion. The daughter stated that the patient was consuming large amounts of water and that she would not top drinking fluid and she even threatened to drink water from the toilet. Chest X- ray was positive for bilateral opacities left greater than the right. She is now on day 5 of her hospital admission. She says that she is feeling all right. Her appetite has been good and she has been eating. She says she has not gotten out of bed to try to walk around since her hospital admission and does not know is she has any dyspnea on exertion. She does not have any concerns. She does not endorse dyspnea, chest pain, orthopnea or paroxysmal nocturnal dyspnea or any other complaints today. Review of Systems Review of Systems: no fever, no chills and no fatigue no worsening vision no dysphagia and no pain with swallowing + cough; no dyspnea, no hemoptysis, no pain with cough and no stopping breathing during sleep no chest pain, no chest pain at rest and no palpitations no abdominal pain, no nausea, no vomiting and no dysphagia no dysuria and no hematuria no neck pain, no radicular pain, no stiffness and no muscle weakness Respiratory: + cough; no dyspnea, no hemoptysis, no pain with cough and no stopping breathing during sleep Physical Exam Physical Exam: Patient was mentating very well today. was AOx4 and could spell WORLD backwards. Constitutional: average body habitus, healthy appearing and cooperative; no acute distress (Sitting in chair) Eyes: PERRL, conjunctivae normal, anicteric sclerae + anicteric sclerae, normal accommodation and EOM intact bilaterally ENMT: external ear and nose normal, oropharynx normal Mouth: oral mucous membranes not dry Neck: trachea midline, no thyromegaly Respiratory: normal respiratory effort, lungs clear to auscultation normal respiratory effort; no labored breathing Auscultation: + crackles (At left lower and middle lung novoa); no rhonchi and no wheezes Cardiovascular: Rate/Rhythm: regular rate, + tachycardic and + irregularly irregular Heart Sounds: no gallop, no murmur and no cardiac rub Palpation: no thrill and no heave Vessels: dorsalis pedis pulses present and radial pulses present; no JVD and no carotid bruit Extremities: no edema Chest (Breasts): Chest: normal inspection of chest Gastrointestinal (Abdomen): normal bowel sounds, soft, nontender, no hepatosplenomegaly Musculoskeletal: Extremities: extremities normal to inspection; no cyanosis and no clubbing Skin: no rashes, warm and dry Neurologic: patellar DTR's 2+ bilat, sensation intact and PERRL, EOMI, accommodation nl, no face palsy, no dysarthria CN's II-XI intact bilaterally, moves all extremities and awake; no focal motor deficits Psychiatric: Orientation: alert, oriented to person, oriented to place (knows she is in the hospital), oriented to time (Knows the year is 2019, but does not know the month and date) and cooperative Lymphatic: no lymphedema Results & Data Vital Signs (Past 12 Hours) Vital Signs Temp Pulse Resp BP Pulse Ox 02/19/19 07:09 36.8 C 94 H 18 151/87 H 97 02/18/19 23:37 37 C 84 18 131/79 97
[2019-02-19] MEDS: APIXABAN 5 MG TABLET PO SCH ×2 (09:05→21:05)
[2019-02-19] MEDS: BUDESONIDE/FORMOTEROL FUMARATE 160/4.5 60 PUFFS/INHALER INH SCH ×2 (09:06→21:07)
[2019-02-19] MEDS: lisinopriL 10 MG TAB PO SCH (09:06)
[2019-02-19] MEDS: SODIUM CHLORIDE 1 GM TABLET PO SCH ×2 (09:07→21:05)
[2019-02-19] MEDS: MEMANTINE HCL 10 MG TAB PO SCH ×2 (09:07→21:04)
[2019-02-19] MEDS: LORATADINE 10 MG TAB PO SCH (09:07)
[2019-02-19] MEDS: DONEPEZIL HCL 10 MG TAB PO SCH (09:10)
[2019-02-19] MEDS: DOCUSATE SODIUM 100 MG CAP PO SCH ×2 (09:10→22:11)
[2019-02-19] MEDS: VENLAFAXINE HCL XR 150 MG CAPXR PO SCH (09:10)
[2019-02-19] MEDS: FUROSEMIDE 20 MG TAB PO SCH (09:11)
[2019-02-19] MEDS: VENLAFAXINE HCL XR 75 MG CAPXR PO SCH (09:11)
[2019-02-19] MEDS: METOPROLOL TARTRATE 100 MG TAB PO SCH ×2 (09:11→21:06)
[2019-02-19] MEDS: BusPIRone 15 MG TAB PO SCH ×3 (09:12→21:02)
[2019-02-19] MEDS: ASPIRIN 81 MG ECTAB PO SCH (09:12)
[2019-02-19] MEDS: SOTALOL HCL 80 MG TAB PO SCH ×2 (09:12→21:02)
[2019-02-19] MEDS: LORazepam 0.5 MG TAB PO SCH ×2 (09:15→21:01)
[2019-02-19] MEDS: cefTRIAXone SODIUM 2,000 MG in DEXTROSE 5% 50 ML IV SCH (12:33)
--- NOTE | 2019-02-19 17:00 | Hospitalist Progress Note ---
Date of Service February 19, 2019 Assessment & Plan (1) Septicemia, Gram-negative: Presented with fever, acute metabolic encephalopathy, hypoxia, tachycardia, leukocytosis, found to have elevated lactate, elevated PCT at 14, and with left sided PNA on CXR. BCxs now growing out Haemophilus influenzae beta lactamase negative in both sets. Repeat cultures remain no growth Most likely Pulm source. No abd pain, LFTs normal, UA no sign of infection WBC count increased again today for unknown reason at 16, continues to remain afebrile, tachycardia now resolved We will repeat urinalysis, chest x-ray improved from previous on 02/19 PCT trended downward to 1 Repeat BCxs NGTD-will continue to follow -Suspect white count back up just due to atelectasis, no new infection -Continue ceftriaxone given the Haemophilus influenzae-would complete 14 days of abx but convert to po abx-likely Augmentin at the time of discharge -follow CBC (2) Pneumonia: With bilateral, L>R infiltrates on CXR, cough, fever, hypoxia, septicemia as above Chest x-ray improving -treated with cefepime and then transitioned to ceftriaxone as above for Haemophilus influenzae PNA -received one dose Levaquin in ER on admission, and one dose doxy here but now both stopped. No further Vanco needed as had neg MRSA swab -continue albuterol nebs -supplemental O2 prn -follow CXR to resolution (3) Hyponatremia: With worsening hyponatremia despite IVF volume resuscitation for suspected hypovolemia initially-was given IV Lasix and decreased her fluid restriction and now with improvement and stability at 131 today. Ur Na+ and Ur Osm finally collected and are elevated, consistent with SIADH Does appear euvolemic at this point, likely SIADH in setting of pneumonia Apparently, perhaps due to dementia, patient does inclined to have polydipsia although that is being controlled here in the hospital TSH normal, doubt renal insufficiency -Continue NaCl 1 g p.o. twice daily -follow BMP in the morning (4) Atrial fibrillation with RVR: With RVR secondary to sepsis and dehydration initially Rates remained high despite IV fluids -Rates are now controlled with increased dose of increase metoprolol to 100 mg p.o. twice daily -Continue apixaban 5 mg p.o. twice daily -continue Sotalol 160 mg p.o. twice daily -continue diltiazem 120 mg p.o. once daily Stable to transfer off telemetry -replace lytes, follow BMP, Mag as needed (5) Hypoxia: Secondary to PNA, continues Continue supplemental oxygen Duo nebs every 4 hours and as needed. Continue IV antibiotics for PNA -Add flutter valve (6) Acute metabolic encephalopathy: secondary to sepsis, PNA in setting of underlying dementia Is much improved since admission (7) CHF (congestive heart failure): Chronic diastolic CHF--> with possible acute exacerbation given worsening hyponatremia, weight is now up since admission but down slightly from yesterday -Received one dose of IV lasix 20mg x 1 on 02/16 and hyponatremia improved -Continue home po lasix 20 mg daily -BP control -Continue fluid restriction of 1500mL (8) Depression: Continue venlafaxine 225 mg p.o. every morning. (9) Alzheimer's dementia: Appears to be progressive. Continue donepezil 10 mg p.o. every morning, continue memantine 28 mg p.o. every morning if can be brought in from home as not available here (10) Failure to thrive: Appetite is improving Appreciate dietary consult (11) Anxiety: Continue lorazepam 0.5 mg p.o. at 3 times daily-confirmed this is her prescribed standing dose in PDMP website -recommend titrating down due to advanced age and dementia--> have since lowered ativan to bid -watch for signs of withdrawal -continue Buspar 15mg po tid (12) HTN (hypertension): Blood pressures elevated but now better controlled with increased dose of metoprolol -Continue metoprolol tartrate 100 mg p.o. daily twice daily -decreased lisinopril to 10 mg p.o. every morning for simplification of dosing (down from 12.5 mg daily) -Continue diltiazem 120 mg p.o. every morning -Continue Lasix 20 mg daily (13) Mitral valve disease: Chronic issue, moderate on ECHO recently (14) DVT prophylaxis: Lyndsay Dispo-stable for downgrade to medical floor FULL CODE PT/OT evals placed-PT recommending acute rehab and OT recommending SNF CM involved-referrals placed May be ready for discharge tomorrow Subjective Is wondering when she is getting on the hospital. Still with a cough, denies shortness of breath or chest pain. No nausea is eating Review of Systems Review of Systems: All systems reviewed & are unremarkable except as noted in HPI & below Physical Exam Constitutional: average body habitus; no acute distress Eyes: + anicteric sclerae Neck: trachea midline, no thyromegaly Respiratory: normal respiratory effort; no labored breathing Auscultation: + crackles (At left lower and middle lung novoa); no rhonchi and no wheezes Cardiovascular: Rate/Rhythm: regular rate and + irregularly irregular Heart Sounds: no murmur Extremities: no edema Chest (Breasts): Chest: normal inspection of chest Gastrointestinal (Abdomen): normal bowel sounds, soft, nontender, no hepatosplenomegaly Musculoskeletal: Extremities: extremities normal to inspection; no cyanosis and no clubbing Skin: no rashes, warm and dry Neurologic: moves all extremities and awake; no focal motor deficits Psychiatric: Orientation: alert, oriented to person, oriented to place (knows she is in the hospital), oriented to time (Knows the year is 2019, but does not know the month and date) and cooperative Lymphatic: no lymphedema Results & Data Vital Signs (Past 12 Hours) Vital Signs Temp Pulse Resp BP Pulse Ox 02/19/19 14:46 36.6 C 88 18 132/72 97 02/19/19 07:09 36.8 C 94 H 18 151/87 H 97 Laboratory Results 02/19/19 02/19/19 02/19/19 Range/Units 17:40 07:55 05:41 Sodium 131 L (136-145) mmol/L Potassium 3.7 (3.5-5.1) mmol/L Chloride 97 L (98-107) mmol/L Carbon Dioxide 27 (21-32) mmol/L Anion Gap 6.0 (3-11) BUN 16 (7-18) mg/dl Creatinine 0.64 (0.6-1.2) mg/dl Est Cr Clr Drug Dosing 79.2 ml/min Est GFR ( Amer) 98.4 Est GFR (Non-Af Amer) 84.9 BUN/Creatinine Ratio 24.5 H (10-20) Glucose 87 (70-99) mg/dl Calcium 9.0 (8.5-10.1) mg/dl Total Bilirubin 0.4 (0.2-1) mg/dl AST 25 (15-37) U/L ALT 19 (12-78) U/L Alkaline Phosphatase 95 (45-117) U/L Total Protein 7.0 (6.4-8.2) gm/dl Albumin 1.8 L (3.4-5.0) gm/dl Globulin 5.2 H (2.5-4.0) gm/dl Albumin/Globulin Ratio 0.3 L (0.9-2) Procalcitonin 1.01 H (0-0.5) ng/ml Urine Color Yellow Urine Appearance Clear (Clear) Urine pH 6.0 (4.5-7.5) Ur Specific [place] 1.014 (1.000-1.030) Urine Protein Negative (Negative) Urine Glucose (UA) Negative (Negative) Urine Ketones Negative (Negative) Urine Blood Negative (Negative) Urine Nitrite Negative (Negative) Urine Bilirubin Negative (Negative) Urine Urobilinogen Negative (Negative) Ur Leukocyte Esterase Negative (Negative) PG Care Time/CCT Total # of Minutes Spent Total Time Spent with Patient: Total time spent is greater than 50% in coordination of care (as documented) at patient's floor/unit and/or counseling patient: (1) HTN (hypertension) Hypertension type: unspecified Qualified Code(s): I10 - Essential (primary) hypertension (2) Pneumonia Laterality: unspecified laterality Lung location: unspecified part of lung Pneumonia type: due to unspecified organism Qualified Code(s): J18.9 - Pneumonia, unspecified organism
[2019-02-19 18:23] LABS: Appearance Urine Clear (Clear); Bilirubin Urine Negative (Negative); Blood Urine Negative (Negative); Color Urine Yellow; Glucose Urine UA Negative (Negative); Ketones Urine Negative (Negative); Leukocyte Esterase Urine Negative (Negative); Nitrite Urine Negative (Negative); Protein Urine Negative (Negative); Specific Gravity Urine 1.014 (1.000-1.030); Urobilinogen Urine Negative (Negative)
[2019-02-19] MEDS: CLOTRIMAZOLE 1% CR 15 GM TUBE EXT SCH (21:04)
[2019-02-20 08:17] LABS: BUN Creatinine Ratio 26.1 (10-20); Calcium 9.2 mg/dl (8.5-10.1); Creatinine Clr Calc Pharmacy 79.2 ml/min; Est GFR (African American) 98.4; Est GFR (Non-African American) 84.9; Potassium 3.9 mmol/L (3.5-5.1)
[2019-02-20 08:29] LABS: Hematocrit (blood only) 31.3 % (37-47); Hemoglobin 10.2 g/dL (12.0-16.0); Mean Corpuscular Hemoglobin 27.1 pg (25-34); Mean Platelet Volume 9.5 fL (7.4-10.4); Platelet Count 300 K/uL (130-400); RDW Coefficient of Variation 16.1 % (11.5-14.5); RDW Standard Deviation 49.1 fL (36.4-46.3); Red Blood Count 3.77 M/uL (4.2-5.4); White Blood Count 15.23 K/uL (4.8-10.8)
[2019-02-20 08:42] LABS: Mean Corpuscular Hgb Conc 32.6 g/dL (32-36)
[2019-02-20] MEDS: LORATADINE 10 MG TAB PO SCH (08:54)
[2019-02-20] MEDS: SOTALOL HCL 80 MG TAB PO SCH (08:54)
[2019-02-20] MEDS: VENLAFAXINE HCL XR 75 MG CAPXR PO SCH (08:54)
[2019-02-20] MEDS: BusPIRone 15 MG TAB PO SCH ×2 (08:58→13:53)
[2019-02-20] MEDS: METOPROLOL TARTRATE 100 MG TAB PO SCH (08:58)
[2019-02-20] MEDS: lisinopriL 10 MG TAB PO SCH (08:58)
[2019-02-20] MEDS: FUROSEMIDE 20 MG TAB PO SCH (08:58)
[2019-02-20] MEDS: VENLAFAXINE HCL XR 150 MG CAPXR PO SCH (08:58)
[2019-02-20] MEDS: CLOTRIMAZOLE 1% CR 15 GM TUBE EXT SCH (08:59)
[2019-02-20] MEDS: SODIUM CHLORIDE 1 GM TABLET PO SCH (08:59)
[2019-02-20] MEDS: DONEPEZIL HCL 10 MG TAB PO SCH (08:59)
[2019-02-20] MEDS: APIXABAN 5 MG TABLET PO SCH (08:59)
[2019-02-20] MEDS: BUDESONIDE/FORMOTEROL FUMARATE 160/4.5 60 PUFFS/INHALER INH SCH (09:00)
[2019-02-20] MEDS: MEMANTINE HCL 10 MG TAB PO SCH (09:00)
[2019-02-20] MEDS: ASPIRIN 81 MG ECTAB PO SCH (09:00)
[2019-02-20 09:02] LABS: Basophils # (auto) 0.04 K/uL (0-0.2); Basophils % (auto) 0.3 %; Eosinophils # (auto) 0.28 K/uL (0-0.5); Eosinophils % (auto) 1.8 %; Immature Granulocytes # (auto) 1.15 K/uL (0.00-0.02); Immature Granulocytes % (auto) 7.6 %; Lymphocytes # (auto) 1.78 K/uL (1.2-3.4); Lymphocytes % (auto) 11.7 %; Monocytes # (auto) 1.82 K/uL (0.11-0.59); Neutrophils # (auto) 10.16 K/uL (1.4-6.5); Neutrophils % (auto) 66.6 %
[2019-02-20] MEDS: DOCUSATE SODIUM 100 MG CAP PO SCH (09:12)
[2019-02-20] MEDS: LORazepam 0.5 MG TAB PO SCH (09:12)
[2019-02-20] MEDS: cefTRIAXone SODIUM 2,000 MG in DEXTROSE 5% 50 ML IV SCH (11:40)
--- NOTE | 2019-02-20 12:18 | Discharge Summary ---
Date of Service February 20, 2019 Admission HPI Per Admitting Provider The patient is a 78 year old female with past medical history of Alzheimers, A- fib,CHF, mitral valve disease, failure to thrive, hyperlipidemia, hypertension, depression, who presents to the ED with complaints of an episode of altered mental status that started 2 days ago. Patient daughter is at the bedside and she reports that patient did not eat anything for 2 days, but she was drinking lots of fluids even though she was on fluid restriction. Patient is poor historian and it is difficult to obtain review of system from her. She does looks better at this time than the last time that she was admitted to the hospital. Per daughter, the patient had a fever yesterday. The patient denies chest pain, shortness of breath, dysuria, abdominal pain, nausea and vomiting. Per daughter, the patient has been taking all of her medications properly until today. The patient states that she is not normally on oxygen; however, nursing staff states that she was hypoxic upon arrival. The patient denies taking any medication prior to arrival. Patient needed to be on supplemental oxygen 4 L to be above 92%. Labs are reviewed:WBC 10.69,, hemoglobin 12.8 hematocrit 39.7 platelets 266, sodium 138, potassium 2.7 replenished chloride 99, BUN 22, creatinine 0.8 GFR 70, lactate 3.3-->2.5-->2.6, procalcitonin 14.20. Chest x- ray:Bilateral left greater than right pulmonary airspace opacities. Decision was made to admit patient for sepsis caused by pneumonia, generalized weakness at PCU on telemetry. Principal Diagnosis Haemaophilus influenzae pneumonia and bacteremia Discharge Exam Constitutional average body habitus, healthy appearing and cooperative; no acute distress Eyes + anicteric sclerae and EOM intact bilaterally Neck trachea midline, no thyromegaly Respiratory normal respiratory effort; no labored breathing Auscultation: + diminished lung sounds (at left base); no crackles, no rhonchi and no wheezes Cardiovascular Rate/Rhythm: regular rate and + irregularly irregular Heart Sounds: no gallop, no murmur and no cardiac rub Extremities: + edema (2+ pitting edema legs, chronic) Chest (Breasts) Chest: normal inspection of chest Gastrointestinal (Abdomen) normal bowel sounds, soft, nontender, no hepatosplenomegaly Musculoskeletal Extremities: extremities normal to inspection; no cyanosis and no clubbing Skin no rashes, warm and dry Neurologic moves all extremities and awake Psychiatric Orientation: alert, oriented to person, oriented to place (knows she is in the hospital), oriented to time (Knows the is 2018, but does not know the month and date) and cooperative Discharge Data Allergies Allergy/AdvReac Type Severity Reaction Status Date / Time Sulfa (Sulfonamide Allergy Mild Unknown Verified 02/14/19 14:32 Antibiotics) acetaminophen Allergy Unknown Unknown Verified 02/14/19 14:32 oxycodone Allergy Unknown Unknown Verified 02/14/19 14:32 Consultations None Ordered Studies CXR x 2 Hospital Course (1) Septicemia, Gram-negative: Presented with fever, acute metabolic encephalopathy, hypoxia, tachycardia, leukocytosis, found to have elevated lactate, elevated PCT at 14, and with left sided PNA on CXR. BCxs now growing out Haemophilus influenzae beta lactamase negative in both sets. Repeat cultures remain no growth Most likely Pulm source. No abd pain, LFTs normal, UA no sign of infection WBC count increased off and on but ultimately trending downward but remained elevated on day of discharge. -continues to remain afebrile, tachycardia now resolved -due to leukocytosis, repeat urinalysis performed and negative, chest x-ray improved from previous on 02/19 PCT trended downward to 1 Repeat BCxs NGTD-will continue to follow -Suspect white count remains elevated just due to atelectasis, no new infection -received IV ceftriaxone given the Haemophilus influenzae-would complete 14 days of abx but convert to po abx- Augmentin at the time of discharge for 9 more days -follow CBC in 2-3 days at rehab (2) Pneumonia: With bilateral, L>R infiltrates on CXR, cough, fever, hypoxia, septicemia as above Chest x-ray improving -treated with cefepime and then transitioned to ceftriaxone as above for Haemophilus influenzae PNA, now Augmentin on dc as above -received one dose Levaquin in ER on admission, and one dose doxy here but now both stopped. No further Vanco needed as had neg MRSA swab -continue albuterol nebs -supplemental O2 prn-weaned off at time of discharge -follow CXR to resolution in 3-4 weeks (3) Hyponatremia: With worsening hyponatremia despite IVF volume resuscitation for suspected hypovolemia initially-was given IV Lasix and decreased her fluid restriction and now with improvement and stability at 131 today. Ur Na+ and Ur Osm finally collected and are elevated, consistent with SIADH Does appear euvolemic at this point, likely SIADH in setting of pneumonia Apparently, perhaps due to dementia, patient does inclined to have polydipsia although that is being controlled here in the hospital TSH normal, doubt renal insufficiency -received NaCl 1 g p.o. twice daily but will stop on discharge as now eating better -follow BMP in 2-3 days -continue fluid restriction of 1500mL/day on discharge (4) Atrial fibrillation with RVR: With RVR secondary to sepsis and dehydration initially Rates remained high despite IV fluids -Rates are now well controlled with increased dose of increase metoprolol to 100 mg p.o. twice daily -Continue apixaban 5 mg p.o. twice daily -continue Sotalol 160 mg p.o. twice daily -continue diltiazem 120 mg p.o. once daily (5) Hypoxia: Secondary to PNA, now resolved, weaned off O2 -continue Duo nebs every 4 hours as needed. Continue antibiotics for PNA -continue tid flutter valve (6) Acute metabolic encephalopathy: secondary to sepsis, PNA in setting of underlying dementia Is much improved since admission (7) CHF (congestive heart failure): Chronic diastolic CHF--> with possible acute exacerbation given worsening hyponatremia, weight is now up since admission but down slightly from yesterday -Received one dose of IV lasix 20mg x 1 on 02/16 and hyponatremia improved -Continue home po lasix 20 mg daily -BP control -Continue fluid restriction of 1500mL (8) Depression: Continue venlafaxine 225 mg p.o. every morning. (9) Alzheimer's dementia: Appears to be progressive. Continue donepezil 10 mg p.o. every morning, continue memantine 28 mg p.o. every morning if can be brought in from home as not available here (10) Failure to thrive: Appetite is improving Appreciate dietary consult (11) Anxiety: Continue lorazepam 0.5 mg p.o. at 3 times daily-confirmed this is her prescribed standing dose in PDMP website -recommend titrating down due to advanced age and dementia--> have since lowered ativan to bid -watch for signs of withdrawal -continue Buspar 15mg po tid (12) HTN (hypertension): Blood pressures elevated but now better controlled with increased dose of metoprolol -Continue metoprolol tartrate 100 mg p.o. daily twice daily -decreased lisinopril to 10 mg p.o. every morning for simplification of dosing (down from 12.5 mg daily) -Continue diltiazem 120 mg p.o. every morning -Continue Lasix 20 mg daily (13) Mitral valve disease: Chronic issue, moderate on ECHO recently (14) DVT prophylaxis: Eliquis Dispo-stable for discharge to rehab FULL CODE Total Time Total Time Spent Total Time Spent (In Minutes): 35 min Total Time Includes: Examination of the Patient, Discharge Planning and Medi cation Reconciliation Discharge Plan Discharge Items Patient Disposition: Transfer Inpatient Rehab Fac Reason For Visit: PNEUMONIA Discharge Diagnosis: Haemophilus influenzae pneumonia and bacteremia Acute respiratory failure with hypoxia Condition on Discharge: Good Health Concerns: You have been hospitalized for an acute medical problem. During your stay at [facility], we have made an effort to correct the problem that brought you to the hospital while keeping you as comfortable as possible. M edications were used to bring your condition under control and your discharge instructions will include directions for any medications you should take after leaving the hospital. Please make sure you see your Primary Care Provider as part of your follow up plan. Activity: As commented below Lifting: Gradually increase as tolerated Bathing: No limitations Exercise/Sports: Gradually increase as tolerated Exercise Comment: with PT/OT Weightbearing: Full weightbearing Non-emergency contact: Primary Care Provider Call non-emergency contact if: you have any medication questions, your symptoms worsen and your temperature is above 101 Follow-up/Referrals: Digna Andrew CRNP [Primary Care Provider] - Diet: Heart Healthy Fluids: 1500ml (6 cups) Addtl Attending Provider Instructions: Please finish out the course of antibiotics as prescribed with Augmentin 875mg twice daily for 9 more days. Continue flutter valve and pulmonary toilet fo rher pneumonia and follow chest xray till infiltrates are resolved. Please check CBC and BMP in 2-3 days to ensure sodium level is stable (131 seems to be her baseline), and that leukocytosis continues to improve. Pending Studies at Discharge: Yes (Final repeat Blood cultures-no growth to date) Stand-Alone Forms: My [facility] Skilled Items Patient informed of condition?: Yes DNR: No Discharge Level of Care: Acute rehab Communicable Disease: No Discharge Prognosis: Improving Lines: None Urinary Catheter: No Medications and DC Order Prescriptions: New ipratropium-albuterol 0.5 mg-3 mg(2.5 mg base)/3 mL Solution For Nebulization 3 ml NEB Q4R PRN (Reason: shortness of breath or wheezing) Qty: 15 RF: 0 metoprolol tartrate 100 mg Tablet 100 mg PO BID Qty: 60 RF: 0 lorazepam 0.5 mg Tablet 0.5 mg PO BID Qty: 10 RF: 0 Symbicort 160-4.5 mcg/actuation Hfa Aerosol Inhaler 2 puff inhalation BID Qty: 10.2 RF: 0 clotrimazole 1 % Cream 1 applic EXT BID Qty: 15 RF: 0 amoxicillin-pot clavulanate [Augmentin] 875-125 mg tablet 1 tab PO BID 9 Days Qty: 18 RF: 0 Continued sotalol [Betapace] 80 mg tablet 160 mg PO BIDM RF: 0 loratadine [Claritin Liqui-Gel] 10 mg capsule 10 mg PO QAM RF: 0 donepezil [Aricept] 10 mg tablet 10 mg PO QAM RF: 0 venlafaxine [Effexor XR] 150 mg capsule,extended release 24hr 150 mg PO QAM RF: 0 docusate sodium [Colace] 100 mg Capsule 100 mg PO BIDM RF: 0 ergocalciferol (vitamin D2) [Vitamin D2] 50,000 unit Capsule 50,000 unit PO WK RF: 0 buspirone 15 mg tablet 15 mg PO TID RF: 0 memantine [Namenda XR] 28 mg capsule,sprinkle,ER 24hr 28 mg PO QAM RF: 0 venlafaxine [Effexor XR] 75 mg capsule,extended release 24hr 75 mg PO QAM RF: 0 aspirin [Ecotrin Low Strength] 81 mg Tablet,Delayed Release (Dr/Ec) 81 mg PO QAM RF: 0 acetaminophen [Tylenol Extra Strength] 500 mg Tablet 500 mg PO Q4H MDD 3000 mg PRN (Reason: Fever Or Pain) RF: 0 lisinopril [Zestril] 10 mg tablet 10 mg PO QAM RF: 0 diltiazem HCl [DILT-XR] 120 mg capsule,ext.rel 24h degradable 120 mg PO QAM RF: 0 furosemide [Lasix] 20 mg tablet 20 mg PO QAM RF: 0 Eliquis 5 mg tablet 5 mg PO BID RF: 0 Discontinued metoprolol tartrate [Lopressor] 50 mg tablet 50 mg PO BIDM RF: 0 lisinopril [Zestril] 2.5 mg tablet 2.5 mg PO QAM RF: 0 naproxen sodium [Aleve] 220 mg Tablet 220 mg PO BID PRN (Reason: Pain) RF: 0 lorazepam [Ativan] 0.5 mg tablet 0.5 mg PO TIDM PRN (Reason: Anxiety) RF: 0 Discharge Orders: Discharge Order (Routine); Ordered 02/20/19 Ordered By: Yoselin Castillo Admission Data Admit Date/Time: 02/14/19 14:06 Attending Provider: Yoselin Castillo Admit Provider: Lucretia Stallworth Primary Care Provider: Digna Andrew Other Providers: [facility] ; Lucretia Stallworth
== END 2019-02-20 14:00 | DRG 871 ==
LOC: ED 10:57 → 2E 14:06 → SUATTDRO 14:06 → 2E 15:25 → 4W 02-18 15:03